=== PATIENT | female | born 1940 | race Hispanic/Latino ===

== ENCOUNTER 2016-11-14 06:54 | Emergency (ER) | payer MEDICARE, BC ==
[2016-11-14 06:54] VITALS: BMI 20.1
[2016-11-14 07:14] VITALS: BP 102/73; PULSE 85; RESP 18; TEMP 97.3; O2SAT 97
--- NOTE | 2016-11-14 08:41 | C.PDOC ---
History Of Present Illness Patient is a POOR HISTORIAN, UNCOOP 76-YEAR-OLD FEMALE, PRESENTS TO ED, STATES "I'M HERE TO DR LANGE BC I HAVE QUESTIONS FOR HIM". PS THOUGHT APPOINTMENT WAS @ 0400 SO WENT TO OFFICE "BUT I' VE BEEN IN THIS ER SINCE 0430". PS HAS QUESTIONS REGARDING CANCER, REFUSING TO ANSWER WHY SHE THINKS SHE HAS CANCER Time Seen by Provider: 11/14/16 07:31 Chief Complaint (Nursing): Medical Clearance History Per: Patient History/Exam Limitations: other (UNCOOPERATIVE) Past Medical History Reviewed: Historical Data, Nursing Documentation, Vital Signs Vital Signs: Last Vital Signs Temp 97.3 F L 11/14/16 07:05 Pulse 85 11/14/16 07:05 Resp 18 11/14/16 07:05 BP 102/73 11/14/16 07:05 Pulse Ox 97 11/14/16 09:43 - Medical History PMH: Seizures (AGE 9-14/NO FURTHER) Denies: Chronic Kidney Disease - [facility] Procedures CATARAC PHACOEMULS/ASPIR (01/27/14) INSERT LENS AT CATAR EXT (01/27/14) MONITORING OF CARDIAC OUTPUT BY OTHER TECHNIQUE (03/31/04) Family History: States: No Known Family Hx - Social History Hx Alcohol Use: No Hx Substance Use: Yes - Immunization History Hx Tetanus Toxoid Vaccination: No Hx Influenza Vaccination: No Hx Pneumococcal Vaccination: No Review Of Systems Review Of Systems: ROS cannot be obtained secondary to pt's inabilty to answer questions. (UNCOOPERATIVE) Physical Exam - Physical Exam Appears: Other (UNCOOPERATIVE. REFUSING EXAM) ED Course And Treatment O2 Sat by Pulse Oximetry: 97 Progress - Re-Evaluation Re-evaluation Note: 11/14/16 08:41 D/W DR VALENTINO WILL EVAL PT IN ER. PT W PRIOR OUTPT VILLATORO, NEG FINDINGS FOR CANCER. REQUESTING SOCIAL SERVICE EVAL FOR HOME SVC. AWARE PT REFUSING FURTHER ER INTERVENTION PRIOR TO HIS EVAL. 11/14/16 09:15 PT REFUSING TO STAY IN ER "AND I DON'T CARE WHAT HE SAYS". PMD AWARE, PT CLEARED FOR DC AND WILL IN [employer] DEVELOPMENT SPECIALIST STATES PT REFUSED TO WAIT FOR DC PAPERWORK AND LEFT. - Data Reviewed Data Reviewed: Old records - Continuity of Care Discussed patient case with:: Patient Disposition Counseled Patient/Family Regarding: Diagnosis, Need For Followup - Disposition Referrals: Estee Valentino MD [Staff Provider] - Disposition: HOME/ ROUTINE Disposition Time: 09:15 Condition: GOOD Instructions: Dementia (ED) - Clinical Impression Clinical Impression: Medical assessment, Confusion - PA / PLANT OPERATOR / Resident Statement MD/DO has reviewed & agrees with the documentation as recorded. - Scribe Statement The provider has reviewed the documentation as recorded by the Scribe (EFRA GUPTA) All medical record entries made by the Scribe were at my direction and personally dictated by me. I have reviewed the chart and agree that the record accurately reflects my personal performance of the history, physical exam, medical decision making, and the department course for this patient. I have also personally directed, reviewed, and agree with the discharge instructions and disposition.
== END 2016-11-14 09:55 | disposition home or self-care (01) ==
LOC: C.ER 06:54
DX: Z00.00 Encounter for general adult medical examination without abnormal findings (principal); R41.0 Disorientation, unspecified

== ENCOUNTER 2017-03-05 12:57 | Inpatient (IN) | payer MEDICARE, BC ==
[2017-03-05 13:03] VITALS: BMI 16.1
[2017-03-05] MEDS: Sodium Chloride 0.9% 1,000 ML IV SCH (14:00)
[2017-03-05 14:14] LABS: BASO % 0.8 % (0.0-2.0); EOS % 0.9 % (0.0-4.0); HEMATOCRIT 34.7 % (34.0-47.0); LYMPH # 0.9 K/uL (1.0-4.3); LYMPH % 18.3 % (20.0-40.0); MEAN CELL VOLUME 83.8 fL (81.0-99.0); MEAN CORPUSCULAR HEMOGLOBIN 26.7 pg (27.0-31.0); MEAN CORPUSCULAR HGB CONC 31.8 g/dL (33.0-37.0); MEAN PLATELET VOLUME 8.2 fL (7.2-11.7); MONO # 0.5 K/uL (0.0-0.8); MONO % 10.5 % (0.0-10.0); RED CELL DISTRIBUTION WIDTH 16.8 % (11.5-14.5); WHITE BLOOD COUNT 4.9 K/uL (4.8-10.8)
[2017-03-05 14:22] LABS: CHLORIDE 101 mmol/L (98-107); SODIUM 136 mmol/L (132-148)
[2017-03-05 14:23] LABS: POTASSIUM 4.9 mmol/L (3.6-5.2)
[2017-03-05 14:25] LABS: ALB/GLOB RATIO 1.3 (1.0-2.1); ALKALINE PHOSPHATASE 57 U/L (38-126); AST/SGOT 37 U/L (14-36); BILIRUBIN,TOTAL 0.9 mg/dL (0.2-1.3); BLOOD UREA NITROGEN 14 mg/dL (7-17); CARBON DIOXIDE 23 mmol/L (22-30); GFR AFRICAN-AMERICAN > 60; GLUCOSE,RANDOM 106 mg/dL (65-105); TOTAL PROTEIN 7.6 g/dL (6.3-8.3)
[2017-03-05 14:26] LABS: ALT/SGPT 33 U/L (9-52)
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
[2017-03-05 14:51] LABS: RBC URINE 1 /hpf (0-3); URINE BILIRUBIN NEGATIVE (NEGATIVE); URINE BLOOD NEGATIVE (NEGATIVE); URINE COLOR Yellow (YELLOW); URINE GLUCOSE (UA) NORMAL (Normal); URINE KETONE NEGATIVE (NEGATIVE); URINE LEUKOCYTE ESTERASE TRACE Leu/uL (Negative); URINE PROTEIN NEGATIVE (NEGATIVE); URINE UROBILINOGEN NORMAL mg/dL (0.2-1.0); WBC URINE 5 /hpf (0-5)
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
--- NOTE | 2017-03-06 07:06 | CP.PCM.CON ---
History of Present Illness - History of Present Illness History of Present Illness: CONSULT DICTATED CHANGE IN MENTAL STATUS WITH INAPPROPRIATE BEHAVIOUR PARTIAL COMPLEX SEIZURE ?? PARANEOPLASTIC/ ? METS/ LIMBIC ENCEPHALITIS NEEDS WORK UP PER ORDER Past Patient History - Past Medical History & Family History Past Medical History?: Yes - Past Social History Smoking Status: Never Smoked - CARDIAC Hx Cardiac Disorders: Yes (MVP) - PULMONARY Hx Respiratory Disorders: No - NEUROLOGICAL Hx Seizures: Yes - HEENT Hx HEENT Problems: Yes Hx Cataracts: Yes - RENAL Hx Chronic Kidney Disease: No - ENDOCRINE/METABOLIC Hx Endocrine Disorders: No - HEMATOLOGICAL/ONCOLOGICAL Hx Blood Disorders: Yes Hx Cancer: Yes (BREAST LEFT) Hx Chemotherapy: Yes (ALSO RADIATION) - INTEGUMENTARY Hx Dermatological Problems: No - MUSCULOSKELETAL/RHEUMATOLOGICAL Hx Falls: No - GASTROINTESTINAL Hx Gastrointestinal Disorders: No - GENITOURINARY/GYNECOLOGICAL Hx Genitourinary Disorders: No - PSYCHIATRIC Hx Substance Use: Yes - SURGICAL HISTORY Hx Surgeries: Yes Hx Cataract Extraction: Yes (CATARACT EXT LEFT EYE WITH IOLI) Hx Mastectomy: Yes (LUMPECTOMY LEFT BREAST) Hx Tubal Ligation: Yes - ANESTHESIA Hx Anesthesia: Yes Hx Anesthesia Reactions: No Meds Allergies/Adverse Reactions: Allergies Allergy/AdvReac Type Severity Reaction Status Date / Time latex Allergy Verified 03/05/17 13:01 CATS Allergy Uncoded 03/05/17 13:01 - Medications Medications: Current Medications Anastrozole (Arimidex 1 Mg Tab) 1 mg PO DAILY [facility] Heparin Sodium (Porcine) (Heparin) 5,000 units SC Q12H [facility] Sodium Chloride (Sodium Chloride 0.9%) 1,000 mls @ 100 mls/hr IV .Q10H [facility] Last Admin: 03/05/17 14:00 Dose: Not Given Levetiracetam (Keppra) 250 mg PO BID [facility] Last Admin: 03/05/17 22:27 Dose: 250 mg Lorazepam (Ativan) 1 mg IVP ONCE ONE Stop: 03/06/17 07:03 Pneumococcal Polyvalent Vaccine (Pneumovax 23 Vaccine) 0.5 ml IM .ONCE ONE Stop: 03/06/17 10:01 Results - Vital Signs Recent Vital Signs: Last Vital Signs Temp 98.4 F 03/05/17 23:32 Pulse 84 03/05/17 23:32 Resp 20 03/05/17 23:32 BP 111/66 03/05/17 23:32 Pulse Ox 97 03/05/17 23:32 - Labs Result Diagrams: 03/05/17 14:09 03/05/17 14:09 Labs: Laboratory Results - last 24 hr 03/05/17 03/05/17 03/05/17 14:09 14:09 14:41 WBC 4.9 RBC 4.14 Hgb 11.0 Hct 34.7 MCV 83.8 MCH 26.7 L MCHC 31.8 L RDW 16.8 H Plt Count 253 MPV 8.2 Neut % (Auto) 69.5 Lymph % (Auto) 18.3 L [place] % (Auto) 10.5 H Eos % (Auto) 0.9 Baso % (Auto) 0.8 Neut # 3.4 Lymph # 0.9 L [place] # 0.5 Eos # 0.0 Baso # 0.0 Sodium 136 Potassium 4.9 Chloride 101 Carbon Dioxide 23 Anion Gap 16 BUN 14 Creatinine 0.8 Est GFR ( Amer) > 60 Est GFR (Non-Af Amer) > 60 Random Glucose 106 H Calcium 9.0 Total Bilirubin 0.9 AST 37 H ALT 33 Alkaline Phosphatase 57 Total Protein 7.6 Albumin 4.3 Globulin 3.2 Albumin/Globulin Ratio 1.3 Urine Color Yellow Urine Clarity Clear Urine pH 6.0 Ur Specific [place] 1.012 Urine Protein Negative Urine Glucose (UA) Normal Urine Ketones Negative Urine Blood Negative Urine Nitrate Negative Urine Bilirubin Negative Urine Urobilinogen Normal Ur Leukocyte Esterase Trace Urine WBC (Auto) 5 Urine RBC (Auto) 1 Ur Squamous Epith Cells < 1
[2017-03-06] MEDS: Sodium Chloride 0.9% 1,000 ML IV SCH (09:58)
[2017-03-06] MEDS ORDERED: Influenza Vaccine 60 mcg/0.5 mL SYR (4YR UP) IM ONE (10:00)
[2017-03-06] MEDS ORDERED: Pneumococcal 23-Valent Vaccine IM ONE (10:00)
--- NOTE | 2017-03-06 11:05 | CON ---
DATE: ATTENDING PHYSICIAN: Estee Tay MD LOCATION: The patient is in room #359, bed A. REASON FOR THE CONSULTATION: Change in mental status. CHIEF COMPLAINT: The patient was brought in to [facility] with a history of change in behavior yesterday morning. From neurological point of view, I was called in to evaluate her for further management. HISTORY OF PRESENTING ILLNESS: Ms. Sofia Danielle is a 76-year-old cachectic female, in usual state of health. As per the history, she woke up yesterday morning, went to the neighbor's home and knocked the door, which was inappropriate, never happened before. She was totally confused at that point. No history of witnessed tonic-clonic activities or bowel or bladder incontinence or inappropriate clothing herself. The patient was brought into [facility] with the same picture. She was still confused. From neurological point of view, I was called in to see her. She also carried a history of seizure. She had been under the treatment of Keppra 500 mg twice a day. PAST MEDICAL HISTORY: Significant loss of weight in spite of she had a good appetite, history of breast cancer, status post mastectomy under Arimidex, history of procedure, and history of childhood epilepsy. PAST SURGICAL HISTORY: Cataract surgery. FAMILY HISTORY: Not available. SOCIAL HISTORY: Social drinking. No smoking. No history of illicit drugs. REVIEW OF SYSTEMS: A 16-point system being reviewed; from neuro, change in mental status. MEDICATIONS: Arimidex, Keppra, and IV fluids. PHYSICAL EXAMINATION: VITAL SIGNS: Blood pressure 111/66, mean arterial pressure of 81, respiratory rate 16, and temperature afebrile. NECK: Supple. No carotid bruit. HEART: Heart sounds are regular. CHEST: Fair air entry. EXTREMITIES: No edema in the legs. NEUROLOGIC EXAMINATION: The patient is awake and alert. She states she is tired of fluent speech. Initially she was giving some history about her stating that she in [place]. She was brought in to this place by her parents. Still she is studying in college. She wants to complete. Following this, asking about her some questions, she has become apprehensive, she does not want to give answer further. She does not want to be examined as well. Limited exam was done. Cranial Nerve Examination: Responds to visual threat on either sides. The pupils rare reactive to light. Extraocular movement seemed to be intact. No facial sensory deficit. No facial asymmetry. Hearing seems to be intact. Good gag. Mouth is moist. She moves all 4 extremities against gravity. Deep tendon reflexes areflexic. Plantars, she does not want me to do it. Coordination, appropriately reaching the objects. Gait is deferred at this time. LABORATORY DATA: WBC 4.9, hemoglobin 11.2, hematocrit 34.7, and platelet 253. Sodium 136, potassium 4.9, chloride 111, BUN 14, and creatinine 0.8. GFR more than 16. Random glucose 106. AST 37. Urine normal. CONCLUSION: Mr. Sofia Danielle being presenting with change in mental status and inappropriate behavior. 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 However, other possible causes of partial complex seizures from stroke process are transient ischemic attack should be worked up. The current examination is very limited. There are no long track signs noted, however, sees encephalopathic at present. RECOMMENDATIONS: 1. MRI of the brain without contrast under sedation to be done. 2. EEG. 3. Blood workup as per the order. 4. Seizure precaution and fall precaution should be maintained. The patient also given Seroquel for her delusional and inappropriate behavior. Khang Can MD
--- NOTE | 2017-03-06 20:57 | CP.PCM.PN ---
Subjective - Date & Time of Evaluation Date of Evaluation: 03/06/17 Time of Evaluation: 20:54 - Subjective Subjective: pt is confused now disoriented she is walking with some unsteady no cough no headache she claims slept well Temp Pulse Resp BP Pulse Ox 98.1 F 70 20 111/49 L 98 03/06/17 15:30 03/06/17 15:30 03/06/17 15:30 03/06/17 15:30 03/06/17 15:30 chest good air entry regular hs abd soft pt refused to get labs and MRI a/p> pt with breast ca osteoporosis fracture seizures dementia senile and with delirium prognosis guarded will admit the pt will need social group worker eval pt safty at home in question will need safe discharge plan Objective - Vital Signs/Intake and Output Vital Signs (last 24 hours): Temp Pulse Resp BP Pulse Ox 98.1 F 70 20 111/49 L 98 03/06/17 15:30 03/06/17 15:30 03/06/17 15:30 03/06/17 15:30 03/06/17 15:30 - Medications Medications: Current Medications Anastrozole (Arimidex 1 Mg Tab) 1 mg PO DAILY [facility] Last Admin: 03/06/17 10:29 Dose: 1 mg Heparin Sodium (Porcine) (Heparin) 5,000 units SC Q12H [facility] Last Admin: 03/06/17 11:44 Dose: Not Given Levetiracetam (Keppra) 250 mg PO BID [facility] Last Admin: 03/06/17 17:50 Dose: 250 mg Quetiapine Fumarate (Seroquel) 25 mg PO HS [facility] - Labs Labs: 03/05/17 14:09 03/05/17 14:09
--- NOTE | 2017-03-07 08:51 | PN ---
DATE: 03/07/2017 TIME OF EVALUATION: 6:55 a.m. NEUROLOGICAL PROBLEM: Change in mental status, rule out partial complex seizure versus paraneoplastic syndrome. PHYSICAL EXAMINATION VITAL SIGNS: Blood pressure 119/67, mean arterial pressure of 84, respiratory rate of 16, temperature afebrile. NEUROLOGICAL: The patient is more awake, alert, coherent speaking. She follows commands. She is much better than yesterday's exam. She is less confused. She knows she is in the hospital. She follows 1-2 step commands. No right and left confusion. However, her comprehension is not that normal as compare to her baseline. She does not want to do anymore testing, which is unnecessary. She does not want to be guinea pig for the testing and taking medication at present. Rest of the examination is unchanged compared with my previous examination. Her recommended testing EEG and MRI of the brain including blood workup all are on hold. At this point, I would like her to be evaluated by psychiatrist to make her competency. The patient will be followed while she is in the hospital. Khang Can MD
--- NOTE | 2017-03-07 14:17 | PCM.PSYCH ---
Initial Psychiatric Evaluation - Initial Psychiatric Evaluation Type of Admission: Voluntary Chief Complaint (in patient's own words): Psych consult called for pt's change in mental status and capacity. History of Present Illness and Precipitating Events: Pt is a poor historian and unwilling to talk and cooperate with other questions stating "that is my personal information that I don't feel like sharing". Pt is a 76 year old female with a PMH of breast cancer who presented to the ED on 03/06/2017 after she had a seizure. Pt reports that she has a history of seizures, first one at 6 years old and being seizure free for over 50 years. Patient remained disorganized and internally preoccupied throughout the interview. She was superficially cooperative but remained guarded about the details. She remained a poor historian. She reports that she was not feeling well so that is why she came to the hospital. Patient appeared paranoid and delusional. She was responding to internal stimuli and laughing inappropriately Pt appears hypermanic with loose ideas. Pt denies that she is diagnosed with a medical condition ,therefore, refuses medical testing and intervention. Pt is asking to leave. Current Medications: Active Medications Generic Name Dose Route Start Last Admin Trade Name Freq PRN Reason Stop Dose Admin Anastrozole 1 mg 03/06/17 10:00 03/07/17 09:41 Arimidex 1 Mg Tab PO 1 mg DAILY FERNANDO Administration Heparin Sodium (Porcine) 5,000 units 03/06/17 12:00 03/07/17 12:29 Heparin SC Not Given Q12H FERNANDO Levetiracetam 250 mg 03/05/17 21:45 03/07/17 09:40 Keppra PO 250 mg BID FERNANDO Administration Quetiapine Fumarate 25 mg 03/06/17 22:00 03/06/17 21:45 Seroquel PO Not Given HS FERNANDO Past Psychiatric History - Past Psychiatric History Previous Treatment History: None Pertinent Medical Hx (Current Medical&Sleep Prob, Allergies): Allergies Allergy/AdvReac Type Severity Reaction Status Date / Time latex Allergy Verified 03/05/17 13:01 CATS Allergy Uncoded 03/05/17 13:01 Keppra 500 mg PO Q12 03/05/17 Review of Systems - Review of Systems All systems: reviewed and no additional remarkable complaints except - Neurological Neurological: Behavioral Changes - Psychiatric Psychiatric: Behavioral Changes, Confusion, Irritability, Paranoia. absent: Hallucinations, Suicidal Ideation Mental Status Examination - Personal Presentation Personal Presentation: Looks stated age - Affect Affect: Constricted - Motor Activity Motor Activity: Calm - Reliability in Providing Information Reliability in Providing Information: Poor, due to alteration in thoughts, Poor , due to cognitve impairment - Speech Speech: Disorganized, Tangential - Mood Mood: Neutral - Formal Thought Process Formal Thought Process: Delusions, Paranoia, Loosening of associations, Flight of ideas - Hallucinations/Delusions Delusions: Persecution - Obsessions/Compulsions Obsessions: No Compulsions: No - Cognitive Functions Orientation: Person, Place Sensorium: Alert Attention/Concentration: Attentive Estimate of Intelligence: Below average Judgement: Imparied, as evidence by: Poor judgement, Imparied, as evidence by: Lack of insight into illness Memory: Recent intact, as evidence by: Ability to recall events of the day - Risk Risk: Diminished functioning - Strength & Assets Inventory Strength & Assets Inventory: Skills, Life experience - Limitations Limitations: Living alone DSM 5 DX - DSM 5 DSM 5 Diagnosis: Dementia of Alzheimer's type with behavioral disturbance Rule out delirium due to medical condition - Recommended/Plan of Treatment Treatment Recommendations and Plan of Treatment: Dementia of Alzheimer's type with behavioral disturbance Rule out delirium due to medical condition patient does not have any capacity to make any medical decisions since patient is very delusional and demented. - Smoking Cessation Smoking Cessation Initiated: No
--- NOTE | 2017-03-07 15:20 | CP.PCM.PN ---
Subjective - Date & Time of Evaluation Date of Evaluation: 03/07/17 Time of Evaluation: 15:17 - Subjective Subjective: PT SEEN THIS MORNING AT BEDSIDE FULLY DRESSED IN [address] CLOTHES. PT DENIES ANY PAIN OR DISCOMFORT. ONLY ADMITS TO FEELING TIRED BECAUSE "SHE WAS SHOPPING AND WALKING ALL NIGHT." PT'S THOUGHTS ARE DISORIENTED AND SHE IS PLEASANTLY CONFUSED. IN A SAFETY WATCH ROOM. SEEN BY DR. PUTNAM THIS MORNING. INTERNAL CONTROLS SPECIALIST DISCUSSED CONSULT FOR COMPETENCY WITH DR. MUÑIZ AND HE EVALUATED PT THIS MORNING. PENDING COMPETENCY BY HIM. DISCUSSED WITH SOLID WASTE COLLECTION WORKER AND PER HER THE SW HAS BEEN TRYING TO CONTACT ANY FAMILY, FRIENDS, OR OTHERS THAT MAY KNOW HER. PT CANNOT EVEN RECALL BEING TREATED FOR CANCER AND STATES "I DON'T THINK I EVER HAD THAT." CONTINUES TO REFUSE MRI OR W/O FOR R/O METS. SAFETY WATCH TO BE CONTINUED. PENDING COMPETENCY. DR. VALENTINO TO SEE PT DURING HIS ROUNDS. Objective - Vital Signs/Intake and Output Vital Signs (last 24 hours): Temp Pulse Resp BP Pulse Ox 97.9 F 89 18 105/67 100 03/07/17 08:00 03/07/17 08:00 03/07/17 08:00 03/07/17 08:00 03/07/17 08:00 Intake and Output: 03/07/17 03/07/17 06:59 18:59 Intake Total 300 480 Balance 300 480 - Medications Medications: Current Medications Anastrozole (Arimidex 1 Mg Tab) 1 mg PO DAILY [facility] Last Admin: 03/07/17 09:41 Dose: 1 mg Heparin Sodium (Porcine) (Heparin) 5,000 units SC Q12H [facility] Last Admin: 03/07/17 12:29 Dose: Not Given Levetiracetam (Keppra) 250 mg PO BID [facility]ERNANDO Last Admin: 03/07/17 09:40 Dose: 250 mg Quetiapine Fumarate (Seroquel) 25 mg PO HS [facility] Last Admin: 03/06/17 21:45 Dose: Not Given - Labs Labs: 03/05/17 14:09 03/05/17 14:09
[2017-03-07 16:50] VITALS: RESP 20
--- NOTE | 2017-03-07 22:14 | CP.PCM.PN ---
Subjective - Date & Time of Evaluation Date of Evaluation: 03/07/17 Time of Evaluation: 22:14 - Subjective Subjective: The patient is having episodes of confusion. Today patient was trying to get out of the hospital. She was more confused, she claims that the she is [place] the shopping [place]. Patient was seen by his friend, and I spoke to the patient's a friend, we'll give her the phone numbers of the family members. Her daughter Kamille De Oliveira phone number is [phone]. and her roommate num is [phone] her name is Tom curiel Vital signs otherwise stable. Temp Pulse Resp BP Pulse Ox 97.8 F 81 20 119/68 97 03/07/17 23:29 03/07/17 23:29 03/07/17 23:29 03/07/17 23:29 03/07/17 23:29 Chest good air intake, regular heart sounds, nontender abdomen, pedal edema negative Labs noted 03/05/17 14:09 03/05/17 14:09 Assessment and recommendation: 76-year-old female now having a possible advanced dementia. Patient is having episodes of seizure activities. Neurologic follow-up. Patient is currently refusing to have further investigation including MRI, and electrocardiogram. We'll closely monitor. will speak to the patient's family social services evaluation and will follow the patient Objective - Vital Signs/Intake and Output Vital Signs (last 24 hours): Temp Pulse Resp BP Pulse Ox 97.7 F 77 20 122/62 100 03/07/17 16:49 03/07/17 16:49 03/07/17 16:49 03/07/17 16:49 03/07/17 16:49 Intake and Output: 03/07/17 03/08/17 18:59 06:59 Intake Total 480 Balance 480 - Medications Medications: Current Medications Anastrozole (Arimidex 1 Mg Tab) 1 mg PO DAILY [facility] Last Admin: 03/07/17 09:41 Dose: 1 mg Heparin Sodium (Porcine) (Heparin) 5,000 units SC Q12H [facility] Last Admin: 03/07/17 12:29 Dose: Not Given Levetiracetam (Keppra) 250 mg PO BID [facility] Last Admin: 03/07/17 19:14 Dose: 250 mg Quetiapine Fumarate (Seroquel) 25 mg PO HS [facility] Last Admin: 03/06/17 21:45 Dose: Not Given - Labs Labs: 03/05/17 14:09 03/05/17 14:09
--- NOTE | 2017-03-08 10:05 | PN ---
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 PHYSICAL EXAMINATION: GENERAL: The patient again awake, alert, disoriented. Speech is fluent. VITAL SIGNS: Blood pressure 119/68, mean arterial pressure of 85, respiratory rate 18, temperature 97.8. Examination is unchanged compared with my previous examination. Clinical competency been evaluated by psychiatrist and his input is highly evaluated. The patient should be studied for her problem if family agrees. We will contact the family members (next of kin) in order to pursue further workup, further neurological problem. In meantime, continue with Keppra medication and Seroquel for now. I would initiate Aricept 5 mg, which can be titrated slowly as she tolerates. Khang Can MD
--- NOTE | 2017-03-08 14:21 | MRI ---
PROCEDURE: MRI BRAIN WITHOUT CONTRAST HISTORY: R/O mets COMPARISON: None. TECHNIQUE: Hydrocephaly is Multiplanar, multisequence MR images of the brain were obtained without intravenous contrast enhancement. FINDINGS: HEMORRHAGE: None DWI: No evidence of an acute or early subacute infarction. BRAIN PARENCHYMA: No mass effect or edema. Moderate volume loss is noted. Mild to moderate white matter changes are also noted suggestive but nonspecific for chronic microvascular ischemic disease. VENTRICLES: The ventricles are mildly to moderately dilated suggestive of central atrophy or hydrocephalus. CRANIUM: Unremarkable. ORBITS: Grossly unremarkable. PARANASAL SINUSES/MASTOIDS: Clear VASCULAR SYSTEM: Skull base flow voids intact. OTHER FINDINGS: None. IMPRESSION: Suboptimal assessment without IV contrast administration. No evidence of mass lesion mass effect or midline shift. Moderate volume loss. Dilated ventricles which may be due to central atrophy or mild hydrocephalus. Mild white matter changes suggestive but nonspecific for chronic microvascular ischemic disease.
--- NOTE | 2017-03-08 16:18 | CP.PCM.PN ---
Subjective - Date & Time of Evaluation Date of Evaluation: 03/08/17 Time of Evaluation: 16:15 - Subjective Subjective: PT SEEN TODAY AND STILL EXHIBITING BIZARRE BEHAVIOR AND FLIGHT OF IDEAS. HAS NO C/O PAIN OR DISTRESS. WANTS TO LEAVE BUT DOESN'T UNDERSTAND THAT SHE IS IN THE HOSPITAL. PT SEEN BY PSYCH YESTERDAY AND DEEMED NOT COMPETENT TO MAKE HER MEDICAL DECISIONS. MRI WAS DONE THIS AFTERNOON AFTER PT AGREED ONLY IF ACCOMPANIED BY LEAD SHAREPOINT DEVELOPER. SW HAS BEEN IN COMMUNICATION W PT'S DAUGHTER IN [place] OF TODAY (SEE HER NOTES FOR FURTHER INFORMATION). PT TO BE SEEN BY DR. VALENTINO DURING ROUNDS. FINAL DISPOSITION PLAN STILL PENDING. NO FURTHER ORDERS. Objective - Vital Signs/Intake and Output Vital Signs (last 24 hours): Temp Pulse Resp BP Pulse Ox 97.7 F 69 20 116/64 95 03/08/17 09:00 03/08/17 09:00 03/08/17 09:00 03/08/17 09:00 03/08/17 09:00 Intake and Output: 03/08/17 03/08/17 06:59 18:59 Intake Total 400 300 Balance 400 300 - Medications Medications: Current Medications Anastrozole (Arimidex 1 Mg Tab) 1 mg PO DAILY [facility] Last Admin: 03/08/17 09:37 Dose: 1 mg Donepezil HCl (Aricept) 5 mg PO HS [facility] Heparin Sodium (Porcine) (Heparin) 5,000 units SC Q12H [facility] Last Admin: 03/08/17 12:48 Dose: Not Given Levetiracetam (Keppra) 250 mg PO BID [facility] Last Admin: 03/08/17 09:35 Dose: 250 mg Quetiapine Fumarate (Seroquel) 25 mg PO HS [facility] Last Admin: 03/07/17 22:22 Dose: 25 mg - Labs Labs: 03/05/17 14:09 03/05/17 14:09
--- NOTE | 2017-03-08 21:46 | EEG ---
DATE: 03/08/2017 This is a 16-channel electroencephalogram of an awake and a confused adult. During the study, photic stimulation was performed and hyperventilation was not performed. The resting electroencephalogram consists of moderate voltage of 5 to 7 hertz high theta activity, seen at parietal and occipital leads. Anteriorly, fast activity superimposed with 2 to 3 hertz delta activity seen at frontal and central leads. Intermittent movement artifact contaminated the background rhythm. Intermittent some sleep spindles with a K-complex noted which are consistent with N2 sleep. However, during the study, neither electroencephalographic paroxysmal activities nor focal slowing noted. Khang Can MD
--- NOTE | 2017-03-09 09:21 | PN ---
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 PHYSICAL EXAMINATION: VITAL SIGNS: Blood pressure 101/68, mean arterial pressure of 79, respiratory rate 16, temperature afebrile. NEUROLOGICAL: The patient is awake, however, mental status which is not changed, disoriented. Speech is fluent. She moves all 4 extremities purposefully. WORKUP: The patient finally agrees for MRI of the brain, which was done yesterday and also the patient did have a recent encephalogram. MRI of the brain have been reviewed by me does not show any acute pathology or any metastatic process. The patient does show microvascular disease. Electroencephalogram does not show any paroxysmal activities; however, the patient shows a diffuse slow activities, which is marked theta range with N2 sleep. RECOMMENDATIONS: Continue the present medication of Keppra 500 mg twice a day. The patient has been getting 250 mg twice a day, which may be too low for her and continue Seroquel for now. Continue Aricept, the dose can be bumped up to 10 mg 4 weeks from now. The patient is neurologically stable, does not show any long tract signs except change in mental status, which is unchanged compared from the day of the admission. The patient also need psychiatric followup. Khang Can MD
--- NOTE | 2017-03-09 16:17 | CP.PCM.PN ---
Subjective - Date & Time of Evaluation Date of Evaluation: 03/09/17 Time of Evaluation: 16:14 - Subjective Subjective: PT CLEARED FOR D/C TODAY TO [facility] WHICH IS A LOCKED UNIT. OK TO D /C PER DR. VALENTINO. TO CONTINUE SAME MEDS BEING GIVEN HERE. PT SEEN AND COMFORTABLE; CONTINUES WITH BIZARRE BEHAVIOR AND FLIGHT OF IDEAS. RESP EASY AND UNLABORED, REG RHYTHM, ABD SOFT. PT DRESSED IN HER OWN CLOTHES FROM HOME AND STATES "I'M COLD" WHEN ASKED WHY SHE ISN'T WEARING GOWN. SW TO ARRANGE TRANSPORT TO [facility] TODAY. NO FURTHER ORDERS. Objective - Vital Signs/Intake and Output Vital Signs (last 24 hours): Temp Pulse Resp BP Pulse Ox 97.8 F 81 20 137/74 98 03/09/17 07:19 03/09/17 12:45 03/09/17 07:19 03/09/17 12:45 03/09/17 12:45 Intake and Output: 03/09/17 03/09/17 06:59 18:59 Intake Total 180 Balance 180 - Medications Medications: Current Medications Anastrozole (Arimidex 1 Mg Tab) 1 mg PO DAILY [facility] Last Admin: 03/09/17 09:04 Dose: 1 mg Donepezil HCl (Aricept) 5 mg PO HS [facility] Last Admin: 03/08/17 21:44 Dose: 5 mg Levetiracetam (Keppra) 500 mg PO BID [facility] Last Admin: 03/09/17 09:06 Dose: 500 mg Quetiapine Fumarate (Seroquel) 25 mg PO HS [facility] Last Admin: 03/08/17 21:47 Dose: 25 mg - Labs Labs: 03/05/17 14:09 03/05/17 14:09
[2017-03-09 17:09] VITALS: BP 103/67; PULSE 85; TEMP 98.3; O2SAT 97
--- NOTE | 2017-04-16 09:50 | DS ---
HISTORY: This 76-year-old female seen in [facility] for left-sided breast cancer, history of lumpectomy 5 years ago. The patient also had an episode of seizure activity, admitted to the hospital on 03/05/2017 with not feeling well, increasingly confusion, forgetting things, also recurrent fall, injury and bruises. The patient initially was not feeling well, she was not eating well, she also had a significant weight loss recently almost 20 pounds in this last 3 months. The patient in the hospital was seen by emergency room because of her inappropriate behavior and mental status changes. It is unsafe to discharge home, so she was being admitted to the hospital for further management. The patient was seen by neurologist, Dr. Can and evaluation was done, also seen by psychiatrist for the abnormal behavior. The patient also having episodes of dementia, and also forgetting things, and she is also having disorientation to time and place. During the stay in the hospital, medication was adjusted. The patient was started on Keppra 500 mg twice a day, Aricept 5 mg daily, Seroquel 25 mg at night, Arimidex 1 mg daily, lorazepam as needed and the patient was initially given IV fluid, social service technician evaluation was done. The patient finally agreed to go to the rehabilitation. She was transferred to [facility] for further management. The patient was otherwise clinically stable. Meanwhile, the patient's family was unable to communicate but finally able to speak. The patient will be transferred, and she will follow up as an outpatient. Estee Tay MD
== END 2017-03-09 21:45 | DRG 56 ==
LOC: C.ER 12:57 → C.9E 15:04 → C.3T 17:36 → OBSVTOIN 03-06 20:52
PROVIDERS: ADMIT Internal Medicine; ATTEND Internal Medicine
DX: G30.1 Alzheimer's disease with late onset (principal); G93.40 Encephalopathy, unspecified; R64 Cachexia; F05 Delirium due to known physiological condition; G40.209 Localization-related (focal) (partial) symptomatic epilepsy and epileptic syndromes with complex partial seizures, not intractable, without status epilepticus; F02.81 Dementia in other diseases classified elsewhere, unspecified severity, with behavioral disturbance; E86.0 Dehydration; S40.021A Contusion of right upper arm, initial encounter; M81.0 Age-related osteoporosis without current pathological fracture; X58.XXXA Exposure to other specified factors, initial encounter; Z91.81 History of falling; Z85.3 Personal history of malignant neoplasm of breast; Z87.81 Personal history of (healed) traumatic fracture; Z79.899 Other long term (current) drug therapy; Z79.811 Long term (current) use of aromatase inhibitors

== ENCOUNTER 2017-07-03 20:35 | Inpatient (IN) | payer MEDICARE, BC ==
[2017-07-03 20:36] VITALS: BMI 16.1
--- NOTE | 2017-07-03 21:15 | C.PDOC ---
History Of Present Illness 77 year old female, with PMHx of epilepsy, and dementia, is brought to ED via [facility] after being found wandering outside. As per roommate, pt left the house today without keys or belongings. As per roommate, pt had been found wandering and confused several times in the past, notes pt was found in [place] last month. Roommate claims that pt is a danger to herself and can no longer live unsupervised. Roommate notes that pt had a seizure 2 days ago, states pt stopped taking her Keppra. Otherwise, pt denies any active physical complaints at this time. Chief Complaint (Nursing): Altered Mental Status History Per: EMS, Family History/Exam Limitations: None Past Medical History Reviewed: Historical Data, Nursing Documentation, Vital Signs Vital Signs: Last Vital Signs Temp 98.5 F 07/03/17 21:02 Pulse 70 07/03/17 23:11 Resp 12 07/03/17 23:11 BP 141/60 07/03/17 23:11 Pulse Ox 98 07/03/17 23:11 - Medical History PMH: Seizures (epilepsy) Denies: Chronic Kidney Disease - [facility] Procedures CATARAC PHACOEMULS/ASPIR (01/27/14) INSERT LENS AT CATAR EXT (01/27/14) MONITORING OF CARDIAC OUTPUT BY OTHER TECHNIQUE (03/31/04) Family History: States: Unknown Family Hx - Social History Hx Alcohol Use: No Hx Substance Use: Yes - Immunization History Hx Tetanus Toxoid Vaccination: No Hx Influenza Vaccination: No Hx Pneumococcal Vaccination: No Review Of Systems Except As Marked, All Systems Reviewed And Found Negative. Constitutional: Negative for: Fever, Chills Cardiovascular: Negative for: Chest Pain, Palpitations Respiratory: Negative for: Cough, Shortness of Breath Neurological: Positive for: Seizures. Negative for: Headache Physical Exam - Physical Exam Appears: Non-toxic, No Acute Distress Skin: Normal Color, Warm, Dry Head: Atraumatic, Normacephalic Eye(s): bilateral: Normal Inspection Oral Mucosa: Moist Neck: Normal ROM, Supple Chest: Symmetrical, No Tenderness Cardiovascular: Other (S3 heart sound) Respiratory: Normal Breath Sounds, No Rales, No Rhonchi, No Wheezing Gastrointestinal/Abdominal: Soft, No Tenderness Extremity: Normal ROM, No Pedal Edema Pulses: Left Dorsalis Pedis: Normal, Right Dorsalis Pedis: Normal Neurological/Psych: No Oriented x3, Normal Speech, Other (oriented x1) Disoriented To: Place, Time Gait: Steady Other Neurological Findings: No Facial Palsy ED Course And Treatment - Laboratory Results Result Diagrams: 07/03/17 21:52 07/03/17 21:52 ECG: Interpreted By Me ECG Rhythm: Sinus Rhythm ECG Interpretation: Normal Interpretation Of ECG: NSR at 83 bpm. LAHB.No old EKG's for comparison Rate From EC O2 Sat by Pulse Oximetry: 98 Pulse Ox Interpretation: Normal - CT Scan/US head Other Rad Studies (CT/US): Read By Radiologist CT/US Interpretation: CT head-no evidence of acute stroke or bleed,no masses Medical Decision Making Medical Decision Making: Plan: Blood work Urinalysis EKG/CXR Head CT Reassess Disposition - Disposition Disposition: HOSPITALIZED Disposition Time: 01:44 Condition: FAIR - Clinical Impression Clinical Impression: Confusion, Dementia - Scribe Statement The provider has reviewed the documentation as recorded by the Christinaibmary Duran All medical record entries made by the Christinaibmary were at my direction and personally dictated by me. I have reviewed the chart and agree that the record accurately reflects my personal performance of the history, physical exam, medical decision making, and the department course for this patient. I have also personally directed, reviewed, and agree with the discharge instructions and disposition.
[2017-07-03 21:56] LABS: BASO # 0.1 K/uL (0.0-0.2); BASO % 0.7 % (0.0-2.0); EOS % 0.1 % (0.0-4.0); HEMOGLOBIN 11.5 g/dL (11.0-16.0); LYMPH # 0.8 K/uL (1.0-4.3); LYMPH % 10.5 % (20.0-40.0); MEAN CORPUSCULAR HEMOGLOBIN 28.4 pg (27.0-31.0); MEAN CORPUSCULAR HGB CONC 32.6 g/dL (33.0-37.0); MEAN PLATELET VOLUME 8.5 fL (7.2-11.7); MONO # 0.7 K/uL (0.0-0.8); MONO % 9.5 % (0.0-10.0); NEUT # 6.1 K/uL (1.8-7.0); NEUT % 79.2 % (50.0-75.0); RBC 4.06 Mil/uL (3.80-5.20); RED CELL DISTRIBUTION WIDTH 14.3 % (11.5-14.5)
[2017-07-03 21:57] LABS: MEAN CELL VOLUME 87.3 fL (81.0-99.0); WHITE BLOOD COUNT 7.7 K/uL (4.8-10.8)
[2017-07-03 22:13] LABS: ALB/GLOB RATIO 1.4 (1.0-2.1); ALBUMIN 4.3 g/dL (3.5-5.0); ALT/SGPT 49 U/L (9-52); AST/SGOT 59 U/L (14-36); BLOOD UREA NITROGEN 31 mg/dL (7-17); CALCIUM 9.5 mg/dl (8.6-10.4); GFR AFRICAN-AMERICAN 48; GFR NON-AFRICAN AMERICAN 40
--- NOTE | 2017-07-03 22:18 | CT ---
EXAM: CT Head Without Intravenous Contrast CLINICAL HISTORY: 77 years old, female; Signs and symptoms; Altered mental status/memory loss; Confusion or disorientation; Additional info: AMS TECHNIQUE: Axial computed tomography images of the head/brain without intravenous contrast. All CT scans at this facility use one or more dose reduction techniques, viz.: automated exposure control; ma/kV adjustment per patient size (including targeted exams where dose is matched to indication; i.e. head); or iterative reconstruction technique. COMPARISON: No relevant prior studies available. FINDINGS: Brain: Moderate atrophy. No intracranial hemorrhage. No mass. Few scattered foci of decreased attenuation within periventricular/subcortical white matter. No definite edema. Ventricles: No hydrocephalus. Bones/joints: No acute fracture. Soft tissues: Unremarkable. Sinuses: No acute sinusitis. Mastoid air cells: No mastoid effusion. Orbits: Unremarkable as visualized. IMPRESSION: 1. Nonspecific white matter changes. Acute infarction may be CT occult within first 24 hours. If a focal deficit persists, consider followup CT or MRI for further evaluation. 2. Incidental/non-acute findings are described above.
[2017-07-03 23:54] LABS: SQUAMOUS EPITHIAL 1 /hpf (0-5); URINE BACTERIA RARE (<OCC); URINE BILIRUBIN NEGATIVE (NEGATIVE); URINE BLOOD NEGATIVE (NEGATIVE); URINE CLARITY Hazy (Clear); URINE COLOR Amber (YELLOW); URINE GLUCOSE (UA) NORMAL (Normal); URINE HYALINE CAST >20 /lpf (0-2); URINE LEUKOCYTE ESTERASE 1+ Leu/uL (Negative); URINE NITRATE NEGATIVE (NEGATIVE); URINE PROTEIN 2+ mg/dL (NEGATIVE)
[2017-07-04 00:13] LABS: BARBITURATES, UR NEGATIVE (NEGATIVE); BENZODIAZEPINES, UR NEGATIVE (NEGATIVE); OPIATES, UR NEGATIVE (NEGATIVE); PHENCYCLIDINE, UR NEGATIVE (NEGATIVE)
[2017-07-04 01:51] VITALS: RESP 20
[2017-07-04] MEDS: Sodium Chloride 0.9% 1,000 ML IV SCH ×3 (10:52→21:35)
--- NOTE | 2017-07-04 13:35 | RAD ---
HISTORY: Altered mental status COMPARISON: 07/18/2016 TECHNIQUE: Chest PA and lateral FINDINGS: LUNGS: Hyperinflation, manifestations of COPD. No active pulmonary disease. PLEURA: No significant pleural effusion identified. No pneumothorax apparent. CARDIOVASCULAR: No radiographic findings to suggest acute or significant cardiovascular disease. OSSEOUS STRUCTURES: No significant abnormalities. VISUALIZED UPPER ABDOMEN: Normal. OTHER FINDINGS: None. IMPRESSION: No active disease. No significant interval change compared to the prior examination(s).
--- NOTE | 2017-07-04 16:26 | CARD ---
APPROVED REPORT EKG Measurement Heart [id number] <Conclusion> Normal sinus rhythm Left anterior fascicular block Abnormal ECG
--- NOTE | 2017-07-04 18:03 | CP.PCM.HP ---
Past Patient History - Infectious Disease Hx of Infectious Diseases: None - Past Medical History & Family History Past Medical History?: Yes - Past Social History Smoking Status: Never Smoked - CARDIAC Hx Cardiac Disorders: Yes (MVP) - PULMONARY Hx Respiratory Disorders: No - NEUROLOGICAL Hx Neurological Disorder: Yes Hx Seizures: Yes (epilepsy) - HEENT Hx HEENT Problems: Yes Hx Cataracts: Yes - RENAL Hx Chronic Kidney Disease: No - ENDOCRINE/METABOLIC Hx Endocrine Disorders: No - HEMATOLOGICAL/ONCOLOGICAL Hx Blood Disorders: Yes Hx Cancer: Yes (BREAST LEFT) Hx Chemotherapy: Yes (ALSO RADIATION) - INTEGUMENTARY Hx Dermatological Problems: No - MUSCULOSKELETAL/RHEUMATOLOGICAL Hx Musculoskeletal Disorders: Yes Hx Falls: Yes - GASTROINTESTINAL Hx Gastrointestinal Disorders: No - GENITOURINARY/GYNECOLOGICAL Hx Genitourinary Disorders: No - PSYCHIATRIC Hx Psychophysiologic Disorder: Yes Hx Substance Use: Yes - SURGICAL HISTORY Hx Surgeries: Yes Hx Cataract Extraction: Yes (CATARACT EXT LEFT EYE WITH IOLI) Hx Mastectomy: Yes (LUMPECTOMY LEFT BREAST) Hx Tubal Ligation: Yes - ANESTHESIA Hx Anesthesia: Yes Hx Anesthesia Reactions: No Meds Allergies/Adverse Reactions: Allergies Allergy/AdvReac Type Severity Reaction Status Date / Time latex Allergy Verified 03/05/17 13:01 CATS Allergy Uncoded 03/05/17 13:01 Physical Exam - Constitutional Appears: Well - Head Exam Head Exam: ATRAUMATIC, NORMAL INSPECTION, NORMOCEPHALIC - Eye Exam Eye Exam: EOMI, Normal appearance, PERRL Pupil Exam: NORMAL ACCOMODATION, PERRL - ENT Exam ENT Exam: Mucous Membranes Moist, Normal Exam - Neck Exam Neck exam: Positive for: Normal Inspection - Respiratory Exam Respiratory Exam: Decreased Breath Sounds - Cardiovascular Exam Cardiovascular Exam: REGULAR RHYTHM, +S1, +S2 - GI/Abdominal Exam GI & Abdominal Exam: Diminished Bowel Sounds, Soft - Rectal Exam Rectal Exam: Deferred Results - Vital Signs Recent Vital Signs: Last Vital Signs Temp 97.4 F L 07/04/17 15:30 Pulse 69 07/04/17 15:30 Resp 20 07/04/17 15:30 BP 97/60 L 07/04/17 15:30 Pulse Ox 98 07/04/17 15:30 - Labs Result Diagrams: 07/03/17 21:52 07/03/17 21:52 Labs: Laboratory Results - last 24 hr 07/03/17 07/03/17 07/03/17 21:52 21:52 21:52 WBC 7.7 D RBC 4.06 Hgb 11.5 Hct 35.4 MCV 87.3 D MCH 28.4 MCHC 32.6 L RDW 14.3 Plt Count 301 MPV 8.5 Neut % (Auto) 79.2 H Lymph % (Auto) 10.5 L Humphreys % (Auto) 9.5 Eos % (Auto) 0.1 Baso % (Auto) 0.7 Neut # (Auto) 6.1 Lymph # (Auto) 0.8 L Humphreys # (Auto) 0.7 Eos # (Auto) 0.0 Baso # (Auto) 0.1 Sodium 142 Potassium 3.5 L Chloride 103 Carbon Dioxide 25 Anion Gap 17 BUN 31 H Creatinine 1.3 H Est GFR ( Amer) 48 Est GFR (Non-Af Amer) 40 Random Glucose 109 H Calcium 9.5 Total Bilirubin 0.7 AST 59 H D ALT 49 Alkaline Phosphatase 70 Ammonia < 9 L Total Protein 7.4 Albumin 4.3 Globulin 3.1 Albumin/Globulin Ratio 1.4 Urine Color Urine Clarity Urine pH Ur Specific [place] Urine Protein Urine Glucose (UA) Urine Ketones Urine Blood Urine Nitrate Urine Bilirubin Urine Urobilinogen Ur Leukocyte Esterase Urine WBC (Auto) Urine RBC (Auto) Ur Squamous Epith Cells Urine Bacteria Hyaline Casts Urine Opiates Screen Urine Methadone Screen Ur Barbiturates Screen Ur Phencyclidine Scrn Ur Amphetamines Screen U Benzodiazepines Scrn U Oth Cocaine Metabols U Cannabinoids Screen Alcohol, Quantitative < 10 07/03/17 07/03/17 23:44 23:44 WBC RBC Hgb Hct MCV MCH MCHC RDW Plt Count MPV Neut % (Auto) Lymph % (Auto) Humphreys % (Auto) Eos % (Auto) Baso % (Auto) Neut # (Auto) Lymph # (Auto) Humphreys # (Auto) Eos # (Auto) Baso # (Auto) Sodium Potassium Chloride Carbon Dioxide Anion Gap BUN Creatinine Est GFR ( Amer) Est GFR (Non-Af Amer) Random Glucose Calcium Total Bilirubin AST ALT Alkaline Phosphatase Ammonia Total Protein Albumin Globulin Albumin/Globulin Ratio Urine Color [place] Urine Clarity Hazy Urine pH 5.0 Ur Specific [place] 1.027 Urine Protein 2+ H Urine Glucose (UA) Normal Urine Ketones Trace Urine Blood Negative Urine Nitrate Negative Urine Bilirubin Negative Urine Urobilinogen 2.0 H Ur Leukocyte Esterase 1+ H Urine WBC (Auto) 11 H Urine RBC (Auto) 5 H Ur Squamous Epith Cells 1 Urine Bacteria Rare Hyaline Casts >20 H Urine Opiates Screen Negative Urine Methadone Screen Negative Ur Barbiturates Screen Negative Ur Phencyclidine Scrn Negative Ur Amphetamines Screen Negative U Benzodiazepines Scrn Negative U Oth Cocaine Metabols Negative U Cannabinoids Screen Negative Alcohol, Quantitative
[2017-07-04] MEDS ORDERED: Potassium Chloride 20 mEq ER Tab PO STA (19:33)
[2017-07-05] MEDS: Sodium Chloride 0.9% 1,000 ML IV SCH (10:17)
--- NOTE | 2017-07-05 23:23 | CON ---
DATE: 07/05/2017. PSYCHIATRIC CONSULTATION CHIEF COMPLAINT AND REASON FOR CONSULTATION: The patient is referred by Dr. Iggy Duran for evaluation, the patient had dementia as well as history of seizures, on psych meds. HISTORY OF PRESENT ILLNESS: This is the case of 77-year-old female with history of seizure, she claims she has since childhood and also dementia. The patient was brought in with change in mental status. The patient was found wandering outside. According to her roommate who is her significant other, the patient left the house with no keys as noted in the chart. She has a history of wandering in the past and being confused and was found in [place] last night. The patient had a seizure 2 days ago stating that she did not take her medication. The patient seems to have dementia. She is doing much better today, but when asked has pronounced cognitive deficits. The patient does not even know the names of her medications. She said she used to take phenobarb and Dilantin in the past, but now she is on Keppra. The patient states that she takes her medication, but does not remember the name or when to take it. I told her that she needs somebody to help monitor her meds as the patient is prone to have recurrent seizures. The patient had a CAT scan of the head done that showed moderate atrophy, no acute intracranial abnormality. PAST PSYCHIATRIC HISTORY: History of dementia. PAST MEDICAL HISTORY: History of seizures for many many years on Keppra. DRUG AND ALCOHOL HISTORY: Denies any. ALLERGIES: ALLERGIC TO LATEX AND CATS. CURRENT MEDICATIONS: Include Aricept 5 mg daily, Arimidex as well as well as the patient may have history of breast cancer, Heparin, Keppra 500 mg b.i.d., Seroquel 25 mg at bedtime. PHYSICAL EXAMINATION: VITAL SIGNS: Temperature is 98, pulse is 65, blood pressure 121/57, respirations 20 and oxygen saturation is 100%. LABORATORY DATA: Review of her labs WBC 7.7, potassium 3.5, sodium 132. UA is positive for protein, presence of urine rbc 5, urine wbc 11, urine protein +2. Ammonia less than 9. Urine drug screen is negative. Alcohol is less than 10. REVIEW OF SYSTEMS: GENERAL: The patient is alert and verbal, but forgetful, seen in the four-bedded room, she says she wants to go home. She says she was in rehab before. She said she can take care of herself, I spoke with her social studies department chair reported the patient is an open case with [facility] and they have been trying to get help at home. The patient needs somebody to help monitor her meds. The patient has history of chronic seizures and needs to take her medication regularly. SKIN: No diaphoresis. HEENT: No headache or dizziness. No evidence of gingival hyperplasia, the patient also reported history of Dilantin intake in the past. NECK: Supple. RESPIRATORY: No dyspnea. CARDIOVASCULAR: No chest pain. GASTROINTESTINAL: No nausea. No vomiting. EXTREMITIES: The patient is moving extremities. MUSCULOSKELETAL: Feels weak. NEURO: Alert with limited periods of confusion. The patient is oriented to person, to place she knows the hospital, but could not remember the name. Time, she is not oriented to time. MENTAL STATUS EXAMINATION: Elderly female, looks stated age, height 5 feet 4 inches, weighs 129 pounds. Oriented only to place and person. Speech is spontaneous. Affect is reactive. Mood is dysphoric. Thought process, confused often. Thought content, no overt paranoia. No suicidal or homicidal ideation. The patient wants to go home. The patient knows she has seizures, but cannot remember her medications and when to take them. The patient is taking Keppra 500 mg b.i.d., but could not remember that she is taking Aricept, Arimidex, which is the medicine for breast cancer as well as taking Seroquel 25 mg daily. Attention and memory seems to be limited. Insight judgement limited. Impulse control is fair at this time. IMPRESSION: History of delirium, metabolic encephalopathy, probably consider postictal confusion as well as dementia with mood changes and history of seizure as well as history of dehydration, also to consider probably history of breast cancer as the patient is taking Arimidex. PLAN AND RECOMMENDATION: The patient was seen. Meds reviewed. We will keep the patient in the four-bedded room for observation . The patient is taking Aricept 5 mg at bedtime as well as Seroquel 25 mg at bedtime. Continue Keppra 500 mg b.i.d. The patient at this time wants to go home. If she will be discharged to her significant partner, the patient may need somebody to monitor her meds. The patient has history of dementia and could not remember even the names of the medicines and when to take them. The patient will have recurrent seizure if she is not taking her seizure meds as prescribed. Ferdinand Lainez MD [facility]
[2017-07-06 08:38] LABS: BASO # 0.1 K/uL (0.0-0.2); BASO % 2.4 % (0.0-2.0); EOS # 0.1 K/uL (0.0-0.7); EOS % 3.8 % (0.0-4.0); LYMPH # 1.2 K/uL (1.0-4.3); LYMPH % 31.1 % (20.0-40.0); MEAN CELL VOLUME 86.3 fL (81.0-99.0); MEAN CORPUSCULAR HEMOGLOBIN 29.1 pg (27.0-31.0); MEAN CORPUSCULAR HGB CONC 33.7 g/dL (33.0-37.0); MEAN PLATELET VOLUME 8.3 fL (7.2-11.7); MONO # 0.5 K/uL (0.0-0.8); MONO % 13.4 % (0.0-10.0); NEUT # 1.9 K/uL (1.8-7.0); NEUT % 49.3 % (50.0-75.0); NRBC % 0.2 % (0.0-2.0); RBC 3.44 Mil/uL (3.80-5.20); RED CELL DISTRIBUTION WIDTH 13.9 % (11.5-14.5); WHITE BLOOD COUNT 3.8 K/uL (4.8-10.8)
[2017-07-06 08:42] LABS: BLOOD UREA NITROGEN 15 mg/dL (7-17); CALCIUM 8.5 mg/dl (8.6-10.4); GFR AFRICAN-AMERICAN > 60; GFR NON-AFRICAN AMERICAN > 60
[2017-07-06] MEDS: Sodium Chloride 0.9% 1,000 ML IV SCH ×3 (10:18→23:15)
[2017-07-06] MEDS ORDERED: Oxycodone/Acetaminophen 5/325 mg Tab PO PRN (14:30)
--- NOTE | 2017-07-06 18:30 | CP.PCM.PN ---
Subjective - Date & Time of Evaluation Date of Evaluation: 07/06/17 Time of Evaluation: 07:20 - Subjective Subjective: clinically same Objective - Vital Signs/Intake and Output Vital Signs (last 24 hours): Temp Pulse Resp BP Pulse Ox 98.1 F 72 20 127/62 99 07/06/17 16:00 07/06/17 16:00 07/06/17 16:00 07/06/17 16:00 07/06/17 16:00 Intake and Output: 07/06/17 07/06/17 06:59 18:59 Intake Total 300 1490 Output Total 500 Balance -200 1490 - Medications Medications: Current Medications Anastrozole (Arimidex 1 Mg Tab) 1 mg PO DAILY [facility] Last Admin: 07/06/17 10:17 Dose: 1 mg Donepezil HCl (Aricept) 5 mg PO [facility] Last Admin: 07/05/17 21:06 Dose: 5 mg Heparin Sodium (Porcine) (Heparin) 5,000 units SC Q12 [facility] Last Admin: 07/06/17 10:18 Dose: 5,000 units Sodium Chloride (Sodium Chloride 0.9%) 1,000 mls @ 80 mls/hr IV .[id number] [facility] Last Admin: 07/06/17 17:05 Dose: 80 mls/hr Levetiracetam (Keppra) 500 mg PO BID [facility] Last Admin: 07/06/17 17:06 Dose: 500 mg Oxycodone/Acetaminophen (Percocet 5/325 Mg Tab) 1 tab PO Q6H PRN PRN Reason: Pain, severe (8-10) Stop: 07/09/17 14:31 Quetiapine Fumarate (Seroquel) 25 mg PO [facility] Last Admin: 07/05/17 21:06 Dose: 25 mg - Labs Labs: 07/06/17 08:22 07/06/17 08:22 - Constitutional Appears: Well - Head Exam Head Exam: ATRAUMATIC, NORMAL INSPECTION, NORMOCEPHALIC - Eye Exam Eye Exam: EOMI, Normal appearance, PERRL Pupil Exam: NORMAL ACCOMODATION, PERRL - ENT Exam ENT Exam: Mucous Membranes Moist, Normal Exam - Neck Exam Neck Exam: Full ROM, Normal Inspection. absent: Lymphadenopathy - Respiratory Exam Respiratory Exam: Decreased Breath Sounds - Cardiovascular Exam Cardiovascular Exam: REGULAR RHYTHM, +S1, +S2 - GI/Abdominal Exam GI & Abdominal Exam: Soft, Diminished Bowel Sounds - Rectal Exam Rectal Exam: Deferred
--- NOTE | 2017-07-06 19:46 | PN ---
DATE: SUBJECTIVE: The patient is seen. The patient has periods of confusion. She is very forgetful, but today she is more amenable, she has agreed for now to go for subacute rehab to [facility]. The patient with complaints of severe back pain and asking for oxycodone which is acetaminophen combination, which she had in the past. Behavior redmond, she has been compliant with medications, she still remembers the medications that she is taking. VITAL SIGNS: Temperature 98.2, pulse 81, blood pressure 127/60, respirations 20, and O2 saturation 96% on room air. REVIEW OF SYSTEMS: GENERAL: The patient is alert, verbal but still forgetful, seen in her room, not in acute respiratory distress. The patient states that she want to go home. SKIN: No diaphoresis. HEENT: No headache. No dizziness. NECK: Supple. RESPIRATORY: No dyspnea. CARDIOVASCULAR: No chest pain. GASTROINTESTINAL: The patient is eating. MUSCULOSKELETAL: Still complaining of back pain. EXTREMITIES: The patient is ambulating. NEURO: No recurrence of seizures. Alert and oriented x2. GENITOURINARY: No dysuria. MENTAL STATUS EXAMINATION: Elderly female, looks stated age and seen in the four-bedded room, the patient needs monitoring, she is not agitated. She is more cooperative, oriented x2. Speech is spontaneous. Affect is reactive. Mood is calmer. Thought process, still with periods of confusion. Thought content, no overt paranoia. No suicidal or homicidal ideation. The patient still cannot remember the names of her medications. Attention and memory seems to be limited. Insight and judgment limited. Impulse control is fair at this time. IMPRESSION: History of dementia with mood changes, as well as history of seizure with possible postictal confusion, resolving; history of dehydration; history of delirium; metabolic encephalopathy. PLAN AND RECOMMENDATIONS: The patient is seen, medications reviewed. Continue treatment plan as outlined. Psych [place], may continue the Aricept 5 mg at bedtime, Seroquel 25 mg at bedtime, may also have the Percocet one tablet q.6 hours p.r.n. for pain. Once the patient is more medically stable, the patient may go to [facility] for subacute rehab. Behavior redmond, the patient is redirectable at this time. Ferdinand Lainez MD [facility] # [id number] JAMAL
[2017-07-07] MEDS: Sodium Chloride 0.9% 1,000 ML IV SCH ×2 (06:28→19:39)
--- NOTE | 2017-07-07 17:50 | CP.PCM.PN ---
Subjective - Date & Time of Evaluation Date of Evaluation: 07/07/17 Time of Evaluation: 07:20 - Subjective Subjective: clinically same Objective - Vital Signs/Intake and Output Vital Signs (last 24 hours): Temp Pulse Resp BP Pulse Ox 98.2 F 63 20 119/66 99 07/07/17 15:15 07/07/17 15:15 07/07/17 15:15 07/07/17 15:15 07/07/17 15:15 Intake and Output: 07/07/17 07/07/17 06:59 18:59 Intake Total 1820 1040 Balance 1820 1040 - Medications Medications: Current Medications Anastrozole (Arimidex 1 Mg Tab) 1 mg PO DAILY [facility] Last Admin: 07/07/17 10:40 Dose: 1 mg Donepezil HCl (Aricept) 5 mg PO [facility] Last Admin: 07/06/17 22:50 Dose: 5 mg Levetiracetam (Keppra) 500 mg PO BID [facility] Last Admin: 07/07/17 17:44 Dose: 500 mg Oxycodone/Acetaminophen (Percocet 5/325 Mg Tab) 1 tab PO Q6H PRN PRN Reason: Pain, severe (8-10) Stop: 07/09/17 14:31 Quetiapine Fumarate (Seroquel) 25 mg PO [facility] Last Admin: 07/06/17 22:51 Dose: 25 mg - Labs Labs: 07/06/17 08:22 07/06/17 08:22 - Constitutional Appears: Well - Head Exam Head Exam: ATRAUMATIC, NORMAL INSPECTION, NORMOCEPHALIC - Eye Exam Eye Exam: EOMI, Normal appearance, PERRL Pupil Exam: NORMAL ACCOMODATION, PERRL - ENT Exam ENT Exam: Mucous Membranes Moist, Normal Exam - Neck Exam Neck Exam: Full ROM, Normal Inspection. absent: Lymphadenopathy - Respiratory Exam Respiratory Exam: Decreased Breath Sounds - Cardiovascular Exam Cardiovascular Exam: REGULAR RHYTHM, +S1, +S2 - GI/Abdominal Exam GI & Abdominal Exam: Soft, Diminished Bowel Sounds - Rectal Exam Rectal Exam: Deferred
--- NOTE | 2017-07-07 20:36 | PN ---
DATE: SUBJECTIVE: The patient seen in the four-bedded room, not confused, does report she is planning to go home. The patient has still no recall of her medication, and she could not remember why she had a seizure. She claims she has been compliant with meds. The patient also states that she lives in [place] but her address actually is in [place]. The patient is manageable at this time, recurrent seizures. PHYSICAL EXAMINATION VITAL SIGNS: Temperature 98.2, pulse 63, blood pressure 119/66, respirations 20, 99% room air. REVIEW OF SYSTEMS: GENERAL: The patient is alert, verbal, less confused. Oriented only to place and person. SKIN: No diaphoresis. HEENT: No headache. No dizziness. NECK: Supple. RESPIRATORY: No dyspnea. CARDIOVASCULAR: No chest pain. GASTROINTESTINAL: No nausea. No vomiting. EXTREMITIES: The patient is ambulatory. MUSCULOSKELETAL: Feels weak. NEUROLOGIC: Alert with periods of confusion. GENITOURINARY: No dysuria. MENTAL STATUS EXAMINATION: Elderly female, looks stated age, oriented x2. Mood is calm. Affect is reactive. Speech is spontaneous. Thought process is confused. Thought content, the patient is unsure why she is in the hospital, but aware she is in the hospital. No behavioral problems. No psychosis or suicidal ideation. Attention and memory seem to be limited. Insight and judgement are limited. Impulse control is fair at this time. IMPRESSION: History of delirium, metabolic encephalopathy, history of seizure, senile onset dementia with mood changes, history of dehydration. PLAN AND RECOMMENDATION: The patient was seen. Meds reviewed. We will keep the patient in the four-bedded room for monitoring as well as continue present psych meds. The patient wants to go home but may benefit from subacute rehab if she will agree. Ferdinand Lainez MD [email or web address]
[2017-07-08] MEDS: Sodium Chloride 0.9% 1,000 ML IV SCH (10:36)
--- NOTE | 2017-07-08 13:28 | CP.PCM.PN ---
Subjective - Date & Time of Evaluation Date of Evaluation: 07/08/17 Time of Evaluation: 07:20 - Subjective Subjective: clinically same Objective - Vital Signs/Intake and Output Vital Signs (last 24 hours): Temp Pulse Resp BP Pulse Ox 97.7 F 87 20 115/72 100 07/08/17 08:00 07/08/17 08:00 07/08/17 08:00 07/08/17 08:00 07/08/17 08:00 Intake and Output: 07/08/17 07/08/17 06:59 18:59 Intake Total 1930 Balance 1930 - Medications Medications: Current Medications Anastrozole (Arimidex 1 Mg Tab) 1 mg PO DAILY [facility] Last Admin: 07/08/17 10:28 Dose: 1 mg Donepezil HCl (Aricept) 5 mg PO [facility] Last Admin: 07/07/17 21:28 Dose: 5 mg Levetiracetam (Keppra) 500 mg PO BID [facility] Last Admin: 07/08/17 10:28 Dose: 500 mg Oxycodone/Acetaminophen (Percocet 5/325 Mg Tab) 1 tab PO Q6H PRN PRN Reason: Pain, severe (8-10) Stop: 07/09/17 14:31 Quetiapine Fumarate (Seroquel) 25 mg PO [facility] Last Admin: 07/07/17 21:28 Dose: 25 mg - Labs Labs: 07/06/17 08:22 07/06/17 08:22 - Constitutional Appears: Well - Head Exam Head Exam: ATRAUMATIC, NORMAL INSPECTION, NORMOCEPHALIC - Eye Exam Eye Exam: EOMI, Normal appearance, PERRL Pupil Exam: NORMAL ACCOMODATION, PERRL - ENT Exam ENT Exam: Mucous Membranes Moist, Normal Exam - Neck Exam Neck Exam: Full ROM, Normal Inspection. absent: Lymphadenopathy - Respiratory Exam Respiratory Exam: Decreased Breath Sounds - Cardiovascular Exam Cardiovascular Exam: REGULAR RHYTHM, +S1, +S2 - GI/Abdominal Exam GI & Abdominal Exam: Soft, Diminished Bowel Sounds - Rectal Exam Rectal Exam: Deferred
--- NOTE | 2017-07-08 16:56 | PN ---
DATE: 07/08/2017 SUBJECTIVE: The patient is seen with some family members at bedside. She is eating very well. She is forgetful and cannot recall her medications. Concern of the family is that the patient is not taking her meds regularly. The mother of her long time partnerr told this doctor that they are willing to provide home care services as her partner works and the patient also needs some supervision. The patient also benefit from subacute rehab for reconditioning. She could not remember the names of her medications. PHYSICAL EXAMINATION: VITAL SIGNS: Temperature 97.7, pulse 87, blood pressure 115/72, respirations 20, oxygen saturations is 100% on room air. GENERAL: She is alert at times, oriented at times, she is still forgetful, seen with her family and her partner. The patient and her partner have been together for 18 years. Her partner works. The patient is about 77 and her partner is in the mid 60s. SKIN: No diaphoresis. HEENT: No headache. No dizziness. NECK: Supple. RESPIRATORY: No dyspnea. CARDIOVASCULAR: No chest pain. GASTROINTESTINAL: The patient is eating very well. EXTREMITIES: Gait is steady and has been walking around the unit.. MUSCULOSKELETAL: Feels weak. NEUROLOGIC: Alert with periods of confusion. GENITOURINARY: No dysuria. MENTAL STATUS EXAMINATION: Elderly female who looks stated age, oriented x2, forgetful but is anxious at times. Affect is reactive. Speech is spontaneous. Thought process, forgetful. Thought content, no overt psychosis. No suicidal or homicidal ideation. The patient wants to go home. Attention and memory seems to be limited. Insight and judgment seems to be limited. Impulse control is fair at this time. IMPRESSION: History of delirium, metabolic encephalopathy, history of seizures, dementia with mood changes, and dehydration. PLAN AND RECOMMENDATIONS: The patient is seen and meds reviewed. Continue present psych meds as ordered. Continue seizure meds. The patient may benefit from subacute rehab. The mother of her partner would like to provide home care services at home,provided they can afford, as well as the patient has been followed by [facility]. Ferdinand Lainez MD MTDD
[2017-07-09 09:16] VITALS: O2SAT 100
[2017-07-09 15:37] VITALS: BP 122/70; PULSE 70; TEMP 98
--- NOTE | 2017-07-09 16:46 | CP.PCM.PN ---
Subjective - Date & Time of Evaluation Date of Evaluation: 07/09/17 Time of Evaluation: 07:20 - Subjective Subjective: clinically same Objective - Vital Signs/Intake and Output Vital Signs (last 24 hours): Temp Pulse Resp BP Pulse Ox 98.0 F 70 20 122/70 100 07/09/17 15:34 07/09/17 15:34 07/09/17 15:34 07/09/17 15:34 07/09/17 15:34 Intake and Output: 07/09/17 07/09/17 06:59 18:59 Intake Total 300 Balance 300 - Medications Medications: Current Medications Anastrozole (Arimidex 1 Mg Tab) 1 mg PO [facility]ILY [facility] Last Admin: 07/09/17 09:59 Dose: 1 mg Donepezil HCl (Aricept) 5 mg PO [facility] Last Admin: 07/08/17 21:21 Dose: 5 mg Levetiracetam (Keppra) 500 mg PO BID [facility] Last Admin: 07/09/17 09:59 Dose: 500 mg Quetiapine Fumarate (Seroquel) 25 mg PO [facility] Last Admin: 07/08/17 21:21 Dose: 25 mg - Labs Labs: 07/06/17 08:22 07/06/17 08:22 - Constitutional Appears: Well - Head Exam Head Exam: ATRAUMATIC, NORMAL INSPECTION, NORMOCEPHALIC - Eye Exam Eye Exam: EOMI, Normal appearance, PERRL Pupil Exam: NORMAL ACCOMODATION, PERRL - ENT Exam ENT Exam: Mucous Membranes Moist, Normal Exam - Neck Exam Neck Exam: Full ROM, Normal Inspection. absent: Lymphadenopathy - Respiratory Exam Respiratory Exam: Decreased Breath Sounds - Cardiovascular Exam Cardiovascular Exam: REGULAR RHYTHM, +S1, +S2 - GI/Abdominal Exam GI & Abdominal Exam: Soft, Diminished Bowel Sounds - Rectal Exam Rectal Exam: NORMAL INSPECTION
--- NOTE | 2017-07-09 18:02 | CP.PCM.PN ---
Subjective - Date & Time of Evaluation Date of Evaluation: 07/09/17 Time of Evaluation: 11:00 - Subjective Subjective: Alert, awake, no agitation, no distress. Objective - Vital Signs/Intake and Output Vital Signs (last 24 hours): Temp Pulse Resp BP Pulse Ox 98.0 F 70 20 122/70 100 07/09/17 15:34 07/09/17 15:34 07/09/17 15:34 07/09/17 15:34 07/09/17 15:34 Intake and Output: 07/09/17 07/09/17 06:59 18:59 Intake Total 300 Balance 300 - Medications Medications: Current Medications Anastrozole (Arimidex 1 Mg Tab) 1 mg PO DAILY [facility] Last Admin: 07/09/17 09:59 Dose: 1 mg Donepezil HCl (Aricept) 5 mg PO [facility] Last Admin: 07/08/17 21:21 Dose: 5 mg Levetiracetam (Keppra) 500 mg PO BID [facility] Last Admin: 07/09/17 09:59 Dose: 500 mg Quetiapine Fumarate (Seroquel) 25 mg PO [facility] Last Admin: 07/08/17 21:21 Dose: 25 mg - Labs Labs: 07/06/17 08:22 07/06/17 08:22 Assessment and Plan - Assessment and Plan (Free Text) Assessment: 77 Year old female admitted with altered mental status, seen and examined. Awake , alert, mental status within normal limits, follows commands. Wants to go home , cleared by DR Jenkins to be continued with present meds. APS will follow at home for medication check, also home care has been arranged. Advised to follow up with her PMD in 1 week.
--- NOTE | 2017-07-09 18:09 | PN ---
DATE: 07/09/2017 SUBJECTIVE: The patient is seen. The patient presently confused with eating her lunch without any problems. Has good appetite. The patient wants to go home. Still very forgetful. She does not remember the name of her meds, but insists that she is taking her meds at home. The patient will need somebody at home and she is to contact her partner to help the patient monitor her meds. The patient could not remember the name of her psych meds. The patient is on Aricept and Seroquel. She has been sleeping well, has good appetite. No behavioral problems. No recurrent seizures evident. PHYSICAL EXAMINATION VITAL SIGNS: Temperature 93.3, pulse rate 69, blood pressure 105/63, respirations 20, and O2 saturation is 100%. GENERAL: The patient is alert and oriented x2 to place and person at this time, but not agitated. seen in the four-bedded room for monitoring. The patient states she wants to go home. SKIN: No diaphoresis. HEENT: No headache or dizziness. NECK: Supple. RESPIRATORY: No dyspnea. CARDIOVASCULAR: No chest pain. GASTROINTESTINAL: Has good appetite. No nausea or vomiting. EXTREMITIES: Gait is improving. She has been walking around the unit. NEUROLOGIC: Alert with periods of forgetfulness. GENITOURINARY: No dysuria. MUSCULOSKELETAL: Weakness improving. MENTAL STATUS EXAMINATION: An elderly female who looks stated age and oriented x2. Mood is calmer. Affect is reactive. Speech is spontaneous. Thought process, confused off and on. Thought content, the patient wants to go home. She does not want to go to subacute rehab, but still very forgetful. No psychosis. No suicidal or homicidal ideation. Attention and memory seems to be limited. Insight and judgment are limited. Impulse control is fair at this time. IMPRESSION: History of delirium, metabolic encephalopathy secondary to seizure, history of dementia with mood changes as well as history of dehydration. PLAN AND RECOMMENDATIONS: The patient was seen and meds reviewed. Continue present psych meds. However, if the patient was discharged to home, we have to ask her partner to monitor the meds. The patient cannot remember taking her medications. She cannot even remember the name. The patient has a long history of seizures, somebody has to supervise the patient for her medication. She is refusing to go to subacute rehab. The patient has been ambulating much better. She needs medication monitoring at home. Ferdinand Lainez MD
== END 2017-07-09 21:13 | disposition home health service (06) | DRG 884 ==
LOC: C.ER 20:35 → C.9E 21:37 → C.3T 23:21 → UNDODISIN 07-09 18:41
PROVIDERS: ADMIT Internal Medicine Nephrology; ATTEND Internal Medicine Nephrology
DX: F03.91 Unspecified dementia, unspecified severity, with behavioral disturbance (principal); G93.40 Encephalopathy, unspecified; F05 Delirium due to known physiological condition; E86.0 Dehydration; G40.909 Epilepsy, unspecified, not intractable, without status epilepticus; Z79.811 Long term (current) use of aromatase inhibitors; Z85.3 Personal history of malignant neoplasm of breast; Z91.83 Wandering in diseases classified elsewhere

== ENCOUNTER 2017-07-21 19:44 | Inpatient (IN) | payer MEDICARE, BC ==
[2017-07-21 19:45] VITALS: BMI 16.1
--- NOTE | 2017-07-21 20:03 | C.PDOC ---
History Of Present Illness 77 year old female, whose past medical history includes seizure disorder, who presents to the ED complaining of chest pain, and possible episode of seizure. Patient reports she is unsure and does not remember if she had an episode. Additionally, she was given 324 mg of Aspirin while coming to the ED. Time Seen by Provider: 07/21/17 20:03 Chief Complaint (Nursing): Chest Pain History Per: Patient History/Exam Limitations: no limitations Onset/Duration Of Symptoms: Hrs Current Symptoms Are (Timing): Gone Context: Other Severity: None Modifying Factors: None Exacerbating Factors: None Alleviating Factors: None Recent travel outside of the [place]: No Additional History Per: Patient Past Medical History Reviewed: Historical Data, Nursing Documentation, Vital Signs Vital Signs: Last Vital Signs Temp 98 F 07/21/17 19:55 Pulse 108 H 07/21/17 19:55 Resp BP 153/71 H 07/21/17 19:55 Pulse Ox 98 07/21/17 20:53 - Medical History PMH: Seizures (epilepsy) Denies: Chronic Kidney Disease - [facility] Procedures CATARAC PHACOEMULS/ASPIR (01/27/14) INSERT LENS AT CATAR EXT (01/27/14) MONITORING OF CARDIAC OUTPUT BY OTHER TECHNIQUE (03/31/04) Family History: States: No Known Family Hx - Social History Hx Alcohol Use: No Hx Substance Use: Yes - Immunization History Hx Tetanus Toxoid Vaccination: No Hx Influenza Vaccination: No Hx Pneumococcal Vaccination: No Review Of Systems Constitutional: Negative for: Fever Eyes: Negative for: Vision Change Cardiovascular: Positive for: Chest Pain. Negative for: Palpitations Respiratory: Negative for: Shortness of Breath Gastrointestinal: Negative for: Vomiting Genitourinary: Negative for: Dysuria Musculoskeletal: Negative for: Neck Pain Skin: Negative for: Rash Neurological: Positive for: Seizures. Negative for: Weakness, Change in Speech Psych: Negative for: Anxiety Physical Exam - Physical Exam Appears: Non-toxic, No Acute Distress Skin: Warm, Dry Head: Normacephalic Eye(s): bilateral: Normal Inspection, PERRL, EOMI Neck: Trachea Midline, Supple Chest: Symmetrical Cardiovascular: Rhythm Regular Respiratory: No Rales, No Rhonchi, No Wheezing Gastrointestinal/Abdominal: Bowel Sounds (active), Soft, No Tenderness, No Distention, No Guarding, No Rebound Back: Normal Inspection Extremity: Normal ROM Extremity: Bilateral: Atraumatic, Normal Color And Temperature, Normal ROM Pulses: Left Dorsalis Pedis: Normal, Right Dorsalis Pedis: Normal Neurological/Psych: Oriented x3, Normal Speech, Normal Cognition, Normal Motor, Normal Sensation, Normal Reflexes Gait: Steady ED Course And Treatment - Laboratory Results Result Diagrams: 07/21/17 20:12 07/21/17 20:12 ECG: Interpreted By Me, Viewed By Me ECG Rhythm: Sinus Rhythm (92), Nonspecific Changes (LAHB) O2 Sat by Pulse Oximetry: 98 (room air) Pulse Ox Interpretation: Normal - Radiology CXR: Interpreted by Me, Viewed By Me Disposition Discussed With : Ely Duran Comment: accepted the pt onhis service and took over the care at 9:28PM Doctor Will See Patient In The: Hospital Counseled Patient/Family Regarding: Studies Performed, Diagnosis - Disposition Disposition: HOSPITALIZED Disposition Time: 21:09 Condition: FAIR Forms: [facility] (Croatian) - POA Present On Arrival: None - Clinical Impression Clinical Impression: Chest pain - Scribe Statement The provider has reviewed the documentation as recorded by the Scribe Scribe Attestation: Esperanza Reina MD Scribe Attestation: All medical record entries made by the Scribe were at my direction and personally dictated by me. I have reviewed the chart and agree that the record accurately reflects my personal performance of the history, physical exam, medical decision making, and the department course for this patient. I have also personally directed, reviewed, and agree with the discharge instructions and disposition. Decision To Admit - Pt Status Changed To: Hospital Disposition Of: Inpatient - Admit Certification Admit to Inpatient:: After my assessment, the patient will require hospitalization for at least two midnights. This is because of the severity of symptoms shown, intensity of services needed, and/or the medical risk in this patient being treated as an outpatient. - InPatient: Physician Admission Certification: I certify that this patient requires 2 or more midnights of care for the following reason:: After my assessment, the patient will require hospitalization for at least two midnights. This is because of the severity of symptoms shown, intensity of services needed, and/or the medical risk in this patient being treated as an outpatient. - . Bed Request Type: Telemetry Admitting Physician: Ely Duran Patient Diagnosis: Chest pain
[2017-07-21 20:15] LABS: BASO # 0.1 K/uL (0.0-0.2); EOS # 0.1 K/uL (0.0-0.7); EOS % 0.9 % (0.0-4.0); HEMOGLOBIN 11.6 g/dL (11.0-16.0); LYMPH # 1.4 K/uL (1.0-4.3); LYMPH % 20.5 % (20.0-40.0); MEAN CELL VOLUME 86.5 fL (81.0-99.0); MEAN CORPUSCULAR HEMOGLOBIN 28.3 pg (27.0-31.0); MEAN CORPUSCULAR HGB CONC 32.7 g/dL (33.0-37.0); MEAN PLATELET VOLUME 7.8 fL (7.2-11.7); MONO # 0.7 K/uL (0.0-0.8); NEUT # 4.6 K/uL (1.8-7.0); NEUT % 67.6 % (50.0-75.0); NRBC % 0.1 % (0.0-2.0); RBC 4.08 Mil/uL (3.80-5.20); RED CELL DISTRIBUTION WIDTH 14.3 % (11.5-14.5)
[2017-07-21 20:19] LABS: WHITE BLOOD COUNT 6.9 K/uL (4.8-10.8)
[2017-07-21 20:25] LABS: INR 1.2; PROTHROMBIN TIME 13.3 SECONDS (9.7-12.2)
[2017-07-21 20:32] LABS: ALB/GLOB RATIO 1.3 (1.0-2.1); ALBUMIN 3.9 g/dL (3.5-5.0); ALT/SGPT 33 U/L (9-52); AST/SGOT 26 U/L (14-36); BLOOD UREA NITROGEN 18 mg/dL (7-17); CALCIUM 9.1 mg/dl (8.6-10.4); GFR AFRICAN-AMERICAN > 60; GFR NON-AFRICAN AMERICAN 53
[2017-07-21 20:39] LABS: B-TYPE NATRIURETIC PEPTIDE 357 pg/mL (0-900)
[2017-07-21 20:41] LABS: SQUAMOUS EPITHIAL 1 /hpf (0-5); URINE BACTERIA RARE (<OCC); URINE BILIRUBIN NEGATIVE (NEGATIVE); URINE BLOOD NEGATIVE (NEGATIVE); URINE CLARITY Clear (Clear); URINE COLOR Yellow (YELLOW); URINE GLUCOSE (UA) NORMAL (Normal); URINE LEUKOCYTE ESTERASE NEG Leu/uL (Negative); URINE PROTEIN 1+ mg/dL (NEGATIVE); URINE UROBILINOGEN NORMAL mg/dL (0.2-1.0)
[2017-07-22 04:51] LABS: CK-MB 2.98 ng/mL (0.0-3.38); TROPONIN I 0.866 ng/mL (0.00-0.120)
--- NOTE | 2017-07-22 08:47 | RAD ---
PROCEDURE: CHEST RADIOGRAPH, 1 VIEW HISTORY: chest pain COMPARISON: Chest radiograph dated 07/03/2017. FINDINGS: LUNGS: Hyperinflated lungs with flattened diaphragms. Bibasilar scarring. No focal consolidation. PLEURA: No pneumothorax or pleural fluid seen. CARDIOVASCULAR: Atherosclerotic aortic calcifications. Cardiomediastinal silhouette stably enlarged. OSSEOUS STRUCTURES: Unchanged. VISUALIZED UPPER ABDOMEN: Normal. OTHER FINDINGS: None. IMPRESSION: No active disease.
[2017-07-22] MEDS ORDERED: Enoxaparin 40 mg Syringe SC SCH (10:00)
[2017-07-22] MEDS: Pantoprazole 40 mg EC Tab PO SCH (10:01)
[2017-07-22 13:05] LABS: CK-MB 4.63 ng/mL (0.0-3.38)
[2017-07-22 14:57] LABS: TROPONIN I 1.1 ng/mL (0.00-0.120)
--- NOTE | 2017-07-22 16:09 | CP.PCM.HP ---
Present on Admission - Present on Admission Any Indicators Present on Admission: No Past Patient History - Infectious Disease Hx of Infectious Diseases: None - Past Medical History & Family History Past Medical History?: Yes - Past Social History Smoking Status: Never Smoked - CARDIAC Hx Cardiac Disorders: Yes (MVP) - PULMONARY Hx Respiratory Disorders: No - NEUROLOGICAL Hx Seizures: Yes (epilepsy) - HEENT Hx HEENT Problems: Yes Hx Cataracts: Yes - RENAL Hx Chronic Kidney Disease: No - ENDOCRINE/METABOLIC Hx Endocrine Disorders: No - HEMATOLOGICAL/ONCOLOGICAL Hx Blood Disorders: Yes Hx Cancer: Yes (BREAST LEFT) Hx Chemotherapy: Yes (ALSO RADIATION) - INTEGUMENTARY Hx Dermatological Problems: No - MUSCULOSKELETAL/RHEUMATOLOGICAL Hx Musculoskeletal Disorders: Yes Hx Falls: Yes - GASTROINTESTINAL Hx Gastrointestinal Disorders: No - GENITOURINARY/GYNECOLOGICAL Hx Genitourinary Disorders: No - PSYCHIATRIC Hx Substance Use: No - SURGICAL HISTORY Hx Surgeries: Yes Hx Cataract Extraction: Yes (CATARACT EXT LEFT EYE WITH IOLI) Hx Mastectomy: Yes (LUMPECTOMY LEFT BREAST) Hx Tubal Ligation: Yes - ANESTHESIA Hx Anesthesia: Yes Hx Anesthesia Reactions: No Hx Malignant Hyperthermia: No Has any member of the family had a problem w/ anesthesia?: No Meds Allergies/Adverse Reactions: Allergies Allergy/AdvReac Type Severity Reaction Status Date / Time latex Allergy Verified 03/05/17 13:01 CATS Allergy Uncoded 03/05/17 13:01 Physical Exam - Constitutional Appears: Well - Head Exam Head Exam: ATRAUMATIC, NORMAL INSPECTION, NORMOCEPHALIC - Eye Exam Eye Exam: EOMI, Normal appearance, PERRL Pupil Exam: NORMAL ACCOMODATION, PERRL - ENT Exam ENT Exam: Mucous Membranes Moist, Normal Exam - Neck Exam Neck exam: Positive for: Normal Inspection - Respiratory Exam Respiratory Exam: Decreased Breath Sounds - Cardiovascular Exam Cardiovascular Exam: REGULAR RHYTHM, +S1, +S2 - GI/Abdominal Exam GI & Abdominal Exam: Diminished Bowel Sounds, Soft - Rectal Exam Rectal Exam: Deferred Results - Vital Signs Recent Vital Signs: Last Vital Signs Temp 97.7 F 07/22/17 13:00 Pulse 98 H 07/22/17 13:00 Resp 20 07/22/17 13:00 BP 138/70 07/22/17 13:00 Pulse Ox 99 07/22/17 13:00 - Labs Result Diagrams: 07/21/17 20:12 07/21/17 20:12 Labs: Laboratory Results - last 24 hr 07/21/17 07/21/17 07/21/17 20:12 20:12 20:12 WBC 6.9 D RBC 4.08 Hgb 11.6 Hct 35.3 MCV 86.5 MCH 28.3 MCHC 32.7 L RDW 14.3 Plt Count 316 MPV 7.8 Neut % (Auto) 67.6 Lymph % (Auto) 20.5 Brown % (Auto) 10.0 Eos % (Auto) 0.9 Baso % (Auto) 1.0 Neut # (Auto) 4.6 Lymph # (Auto) 1.4 Brown # (Auto) 0.7 Eos # (Auto) 0.1 Baso # (Auto) 0.1 PT 13.3 H INR 1.2 APTT 30 Sodium 142 Potassium 4.1 Chloride 104 Carbon Dioxide 27 Anion Gap 15 BUN 18 H Creatinine 1.0 Est GFR ( Amer) > 60 Est GFR (Non-Af Amer) 53 POC Glucose (mg/dL) Random Glucose 100 Calcium 9.1 Total Bilirubin 0.5 AST 26 ALT 33 Alkaline Phosphatase 108 Total Creatine Kinase CK-MB (Mass) Troponin I < 0.0120 NT-Pro-B Natriuret Pep 357 Total Protein 6.9 Albumin 3.9 Globulin 3.0 Albumin/Globulin Ratio 1.3 Urine Color Urine Clarity Urine pH Ur Specific [place] Urine Protein Urine Glucose (UA) Urine Ketones Urine Blood Urine Nitrate Urine Bilirubin Urine Urobilinogen Ur Leukocyte Esterase Urine WBC (Auto) Urine RBC (Auto) Ur Squamous Epith Cells Urine Bacteria 07/21/17 07/22/17 07/22/17 20:22 04:05 07:20 WBC RBC Hgb Hct MCV MCH MCHC RDW Plt Count MPV Neut % (Auto) Lymph % (Auto) Brown % (Auto) Eos % (Auto) Baso % (Auto) Neut # (Auto) Lymph # (Auto) Brown # (Auto) Eos # (Auto) Baso # (Auto) PT INR APTT Sodium Potassium Chloride Carbon Dioxide Anion Gap BUN Creatinine Est GFR ( Amer) Est GFR (Non-Af Amer) POC Glucose (mg/dL) 87 Random Glucose Calcium Total Bilirubin AST ALT Alkaline Phosphatase Total Creatine Kinase 64 CK-MB (Mass) 2.98 Troponin I 0.8660 H* NT-Pro-B Natriuret Pep Total Protein Albumin Globulin Albumin/Globulin Ratio Urine Color Yellow Urine Clarity Clear Urine pH 5.0 Ur Specific [place] 1.023 Urine Protein 1+ H Urine Glucose (UA) Normal Urine Ketones Negative Urine Blood Negative Urine Nitrate Negative Urine Bilirubin Negative Urine Urobilinogen Normal Ur Leukocyte Esterase Neg Urine WBC (Auto) 1 Urine RBC (Auto) 2 Ur Squamous Epith Cells 1 Urine Bacteria Rare 07/22/17 12:37 WBC RBC Hgb Hct MCV MCH MCHC RDW Plt Count MPV Neut % (Auto) Lymph % (Auto) Brown % (Auto) Eos % (Auto) Baso % (Auto) Neut # (Auto) Lymph # (Auto) Brown # (Auto) Eos # (Auto) Baso # (Auto) PT INR APTT Sodium Potassium Chloride Carbon Dioxide Anion Gap BUN Creatinine Est GFR ( Amer) Est GFR (Non-Af Amer) POC Glucose (mg/dL) Random Glucose Calcium Total Bilirubin AST ALT Alkaline Phosphatase Total Creatine Kinase 96 CK-MB (Mass) 4.63 H Troponin I 1.1000 H* NT-Pro-B Natriuret Pep Total Protein Albumin Globulin Albumin/Globulin Ratio Urine Color Urine Clarity Urine pH Ur Specific [place] Urine Protein Urine Glucose (UA) Urine Ketones Urine Blood Urine Nitrate Urine Bilirubin Urine Urobilinogen Ur Leukocyte Esterase Urine WBC (Auto) Urine RBC (Auto) Ur Squamous Epith Cells Urine Bacteria Assessment & Plan - Assessment and Plan (Free Text) Plan: Continue with antiemetics Continue with aspirin and Crestor Continue with the GI and DVT prophylaxis Patient's troponin level is little high Patient is following up by the emergency care attendant Cardiology consult with the Dr. Jesús mayo for positive troponin Patient is on therapeutic Lovenox 60 mg subcu twice daily
[2017-07-22] MEDS: Enoxaparin 60 mg Syringe SC SCH (18:36)
--- NOTE | 2017-07-22 20:41 | CP.PCM.CON ---
History of Present Illness - History of Present Illness History of Present Illness: Patient admitted for chest pain. Now Troponin is positive Therapeutic Lovenox, ASA and statins for now Check ECHO in am Likely needs cath prior to dicsharge History Of Present Illness 77 year old female, whose past medical history includes seizure disorder, who presents to the ED complaining of chest pain, and possible episode of seizure. Patient reports she is unsure and does not remember if she had an episode. Additionally, she was given 324 mg of Aspirin while coming to the ED. Chief Complaint (Nursing): Chest Pain History Per: Patient History/Exam Limitations: no limitations Onset/Duration Of Symptoms: Hrs Current Symptoms Are (Timing): Gone Context: Other Severity: None Modifying Factors: None Exacerbating Factors: None Alleviating Factors: None Recent travel outside of the [place]: No Additional History Per: Patient - Medical History PMH: Seizures (epilepsy) Denies: Chronic Kidney Disease - [facility] Procedures CATARAC PHACOEMULS/ASPIR (01/27/14) INSERT LENS AT CATAR EXT (01/27/14) MONITORING OF CARDIAC OUTPUT BY OTHER TECHNIQUE (03/31/04) Family History: States: No Known Family Hx - Social History Hx Alcohol Use: No Hx Substance Use: Yes - Immunization History Hx Tetanus Toxoid Vaccination: No Hx Influenza Vaccination: No Hx Pneumococcal Vaccination: No Review Of Systems Constitutional: Negative for: Fever Eyes: Negative for: Vision Change Cardiovascular: Positive for: Chest Pain. Negative for: Palpitations Respiratory: Negative for: Shortness of Breath Gastrointestinal: Negative for: Vomiting Genitourinary: Negative for: Dysuria Musculoskeletal: Negative for: Neck Pain Skin: Negative for: Rash Neurological: Positive for: Seizures. Negative for: Weakness, Change in Speech Psych: Negative for: Anxiety Physical Exam - Physical Exam Appears: Non-toxic, No Acute Distress Skin: Warm, Dry Head: Normacephalic Eye(s): bilateral: Normal Inspection, PERRL, EOMI Neck: Trachea Midline, Supple Chest: Symmetrical Cardiovascular: Rhythm Regular Respiratory: No Rales, No Rhonchi, No Wheezing Gastrointestinal/Abdominal: Bowel Sounds (active), Soft, No Tenderness, No Distention, No Guarding, No Rebound Back: Normal Inspection Extremity: Normal ROM Extremity: Bilateral: Atraumatic, Normal Color And Temperature, Normal ROM Pulses: Left Dorsalis Pedis: Normal, Right Dorsalis Pedis: Normal Neurological/Psych: Oriented x3, Normal Speech, Normal Cognition, Normal Motor, Normal Sensation, Normal Reflexes Gait: Steady Past Patient History - Infectious Disease Hx of Infectious Diseases: None - Past Medical History & Family History Past Medical History?: Yes - Past Social History Smoking Status: Never Smoked - CARDIAC Hx Cardiac Disorders: Yes (MVP) - PULMONARY Hx Respiratory Disorders: No - NEUROLOGICAL Hx Seizures: Yes (epilepsy) - HEENT Hx HEENT Problems: Yes Hx Cataracts: Yes - RENAL Hx Chronic Kidney Disease: No - ENDOCRINE/METABOLIC Hx Endocrine Disorders: No - HEMATOLOGICAL/ONCOLOGICAL Hx Blood Disorders: Yes Hx Cancer: Yes (BREAST LEFT) Hx Chemotherapy: Yes (ALSO RADIATION) - INTEGUMENTARY Hx Dermatological Problems: No - MUSCULOSKELETAL/RHEUMATOLOGICAL Hx Musculoskeletal Disorders: Yes Hx Falls: Yes - GASTROINTESTINAL Hx Gastrointestinal Disorders: No - GENITOURINARY/GYNECOLOGICAL Hx Genitourinary Disorders: No - PSYCHIATRIC Hx Substance Use: No - SURGICAL HISTORY Hx Surgeries: Yes Hx Cataract Extraction: Yes (CATARACT EXT LEFT EYE WITH IOLI) Hx Mastectomy: Yes (LUMPECTOMY LEFT BREAST) Hx Tubal Ligation: Yes - ANESTHESIA Hx Anesthesia: Yes Hx Anesthesia Reactions: No Hx Malignant Hyperthermia: No Has any member of the family had a problem w/ anesthesia?: No Meds Home Medications: Home Medication List Medication Instructions Recorded Confirmed Type Aspirin [Ecotrin] 81 mg PO DAILY #30 tabec 07/27/17 Rx Rosuvastatin Calcium [Crestor] 20 mg PO HS #30 tab 07/27/17 Rx Allergies/Adverse Reactions: Allergies Allergy/AdvReac Type Severity Reaction Status Date / Time latex Allergy Verified 03/05/17 13:01 CATS Allergy Uncoded 03/05/17 13:01 - Medications Medications: Current Medications Acetaminophen (Tylenol 325mg Tab) 650 mg PO Q6 PRN PRN Reason: pain Last Admin: 07/22/17 10:16 Dose: 650 mg Anastrozole (Arimidex 1 Mg Tab) 1 mg PO DAILY [facility] Last Admin: 07/22/17 10:00 Dose: 1 mg Aspirin (Ecotrin) 81 mg PO DAILY [facility] Last Admin: 07/22/17 10:00 Dose: 81 mg Donepezil HCl (Aricept) 5 mg PO HS [facility] Last Admin: 07/21/17 23:07 Dose: 5 mg Enoxaparin Sodium (Lovenox) 60 mg SC BID [facility] Last Admin: 07/22/17 18:36 Dose: 60 mg Levetiracetam (Keppra) 500 mg PO BID [facility] Last Admin: 07/22/17 17:05 Dose: 500 mg Pantoprazole Sodium (Protonix Ec Tab) 40 mg PO DAILY [facility] Last Admin: 07/22/17 10:01 Dose: 40 mg Quetiapine Fumarate (Seroquel) 25 mg PO HS [facility] Last Admin: 07/21/17 23:07 Dose: 25 mg Results - Vital Signs Recent Vital Signs: Last Vital Signs Temp 98.2 F 07/22/17 16:00 Pulse 98 H 07/22/17 18:00 Resp 17 07/22/17 16:00 BP 98/62 L 07/22/17 16:00 Pulse Ox 98 07/22/17 16:00 - Labs Result Diagrams: 07/24/17 06:34 07/24/17 06:34 Labs: Laboratory Results - last 24 hr 07/21/17 07/22/17 07/22/17 20:22 04:05 07:20 POC Glucose (mg/dL) 87 Total Creatine Kinase 64 CK-MB (Mass) 2.98 Troponin I 0.8660 H* Urine Color Yellow Urine Clarity Clear Urine pH 5.0 Ur Specific [place] 1.023 Urine Protein 1+ H Urine Glucose (UA) Normal Urine Ketones Negative Urine Blood Negative Urine Nitrate Negative Urine Bilirubin Negative Urine Urobilinogen Normal Ur Leukocyte Esterase Neg Urine WBC (Auto) 1 Urine RBC (Auto) 2 Ur Squamous Epith Cells 1 Urine Bacteria Rare 07/22/17 12:37 POC Glucose (mg/dL) Total Creatine Kinase 96 CK-MB (Mass) 4.63 H Troponin I 1.1000 H* Urine Color Urine Clarity Urine pH Ur Specific [place] Urine Protein Urine Glucose (UA) Urine Ketones Urine Blood Urine Nitrate Urine Bilirubin Urine Urobilinogen Ur Leukocyte Esterase Urine WBC (Auto) Urine RBC (Auto) Ur Squamous Epith Cells Urine Bacteria Assessment & Plan - Assessment and Plan (Free Text) Assessment: Patient admitted for chest pain. Now Troponin is positive Therapeutic Lovenox, ASA and statins for now Check ECHO in am Likely needs cath prior to dicsharge
[2017-07-23] MEDS: Enoxaparin 60 mg Syringe SC SCH ×2 (09:08→21:12)
[2017-07-23] MEDS: Pantoprazole 40 mg EC Tab PO SCH (09:08)
--- NOTE | 2017-07-23 19:46 | CP.PCM.PN ---
Subjective - Date & Time of Evaluation Date of Evaluation: 07/23/17 Time of Evaluation: 16:50 - Subjective Subjective: clinically same Objective - Vital Signs/Intake and Output Vital Signs (last 24 hours): Temp Pulse Resp BP Pulse Ox 98.8 F 91 H 19 106/54 L 98 07/23/17 08:00 07/23/17 18:00 07/23/17 18:00 07/23/17 15:20 07/23/17 15:20 Intake and Output: 07/23/17 07/24/17 18:59 06:59 Intake Total 800 Output Total 300 Balance 500 - Medications Medications: Current Medications Acetaminophen (Tylenol 325mg Tab) 650 mg PO Q6 PRN PRN Reason: pain Last Admin: 07/22/17 10:16 Dose: 650 mg Anastrozole (Arimidex 1 Mg Tab) 1 mg PO DAILY [facility] Last Admin: 07/23/17 09:08 Dose: 1 mg Aspirin (Ecotrin) 81 mg PO DAILY [facility] Last Admin: 07/23/17 09:08 Dose: 81 mg Donepezil HCl (Aricept) 5 mg PO [facility] Last Admin: 07/22/17 21:11 Dose: 5 mg Enoxaparin Sodium (Lovenox) 60 mg SC Q12 [facility] Levetiracetam (Keppra) 500 mg PO BID [facility] Last Admin: 07/23/17 17:52 Dose: Not Given Pantoprazole Sodium (Protonix Ec Tab) 40 mg PO DAILY [facility] Last Admin: 07/23/17 09:08 Dose: 40 mg Quetiapine Fumarate (Seroquel) 25 mg PO [facility] Last Admin: 07/22/17 21:11 Dose: 25 mg Rosuvastatin Calcium (Crestor) 20 mg PO [facility] Last Admin: 07/22/17 21:11 Dose: 20 mg - Labs Labs: 07/21/17 20:12 07/21/17 20:12 PT 13.3 SECONDS (9.7-12.2) H 07/21/17 20:12 INR 1.2 07/21/17 20:12 APTT 30 SECONDS (21-34) 07/21/17 20:12 - Constitutional Appears: Well - Head Exam Head Exam: ATRAUMATIC, NORMAL INSPECTION, NORMOCEPHALIC - Eye Exam Eye Exam: EOMI, Normal appearance, PERRL Pupil Exam: NORMAL ACCOMODATION, PERRL - ENT Exam ENT Exam: Mucous Membranes Moist, Normal Exam - Neck Exam Neck Exam: Full ROM, Normal Inspection. absent: Lymphadenopathy - Respiratory Exam Respiratory Exam: Decreased Breath Sounds - Cardiovascular Exam Cardiovascular Exam: REGULAR RHYTHM, +S1, +S2 - GI/Abdominal Exam GI & Abdominal Exam: Soft, Diminished Bowel Sounds - Rectal Exam Rectal Exam: Deferred
--- NOTE | 2017-07-23 21:29 | CARD ---
APPROVED REPORT EXAM: Two-dimensional and M-mode echocardiogram with Doppler and color Doppler. Other Information Quality : GoodRhythm : INDICATION Chest Pain +TROPONIN 2D DIMENSIONS IVSd1.2 (0.7-1.1cm)LVDd5.0 (3.9-5.9cm) PWd1.2 (0.7-1.1cm)LVDs2.9 (2.5-4.0cm) FS (%) 41.2 %LVEF (%)71.8 (>50%) M-Mode DIMENSIONS RVDd2.20 (2.1-3.2cm)Left Atrium (MM)3.36 (2.5-4.0cm) IVSd1.16 (0.7-1.1cm)Aortic Root2.74 (2.2-3.7cm) LVDd5.33 (4.0-5.6cm)Aortic Cusp Exc.1.69 (1.5-2.0cm) PWd1.10 (0.7-1.1cm)FS (%) 50 % LVDs2.65 (2.0-3.8cm) Mitral Valve MV E Dqrsmwtq04.4cm/sMV A Tzuacbnl86.1cm/sE/A ratio0.6 TDI E/Lateral E'0.0E/Medial E'0.0 Tricuspid Valve TR Peak Aeyylgpy368pf/sTR Peak Gr.45lrOwKTDE60xgVm LEFT VENTRICLE The left ventricle is normal size. There is mild concentric left ventricular hypertrophy. Left ventricle systolic function is normal. The Ejection Fraction is >70%. There is normal LV segmental wall motion. Tissue Doppler imaging reveals abnormal left ventricular diastolic dysfunction. RIGHT VENTRICLE The right ventricle is normal size. There is normal right ventricular wall thickness. The right ventricular systolic function is normal. ATRIA The left atrium size is normal. The right atrium size is normal. The interatrial septum is intact with no evidence for an atrial septal defect. AORTIC VALVE The aortic valve is normal in structure. No aortic regurgitation is present. There is no aortic valvular stenosis. MITRAL VALVE A mild mitral valve prolapse is present. There is no mitral valve stenosis. Mitral regurgitation is mild. TRICUSPID VALVE The tricuspid valve is normal in structure. There is mild tricuspid regurgitation. Right ventricular systolic pressure is estimated at 30-40 mmHg. There is mild pulmonary hypertension. PULMONIC VALVE The pulmonic valve is not well visualized. There is no pulmonic valvular regurgitation. GREAT VESSELS The aortic root is normal in size. PERICARDIAL EFFUSION There is no significant pericardial effusion. <Conclusion> Left ventricle systolic function is normal. The Ejection Fraction is >70%. Hypertensive heart disease. Diastolic dysfunction. No aortic regurgitation is present. A mild mitral valve prolapse is present. Mitral regurgitation is mild. There is mild tricuspid regurgitation. There is mild pulmonary hypertension. There is no pulmonic valvular regurgitation.
--- NOTE | 2017-07-23 22:41 | CP.PCM.PN ---
Subjective - Date & Time of Evaluation Date of Evaluation: 07/23/17 Time of Evaluation: 16:35 - Subjective Subjective: Patient seen and evaluated Denies chest pain and dyspnea Non ST elevation [place] Advised cardiac cath Patient refusing at present Mental status questionable Recommend psych consult for competence Review Of Systems Constitutional: Negative for: Fever Eyes: Negative for: Vision Change Cardiovascular: Positive for: Chest Pain. Negative for: Palpitations Respiratory: Negative for: Shortness of Breath Gastrointestinal: Negative for: Vomiting Genitourinary: Negative for: Dysuria Musculoskeletal: Negative for: Neck Pain Skin: Negative for: Rash Neurological: Positive for: Seizures. Negative for: Weakness, Change in Speech Psych: Negative for: Anxiety Physical Exam - Physical Exam Appears: Non-toxic, No Acute Distress Skin: Warm, Dry Head: Normacephalic Eye(s): bilateral: Normal Inspection, PERRL, EOMI Neck: Trachea Midline, Supple Chest: Symmetrical Cardiovascular: Rhythm Regular Respiratory: No Rales, No Rhonchi, No Wheezing Gastrointestinal/Abdominal: Bowel Sounds (active), Soft, No Tenderness, No Distention, No Guarding, No Rebound Back: Normal Inspection Extremity: Normal ROM Extremity: Bilateral: Atraumatic, Normal Color And Temperature, Normal ROM Pulses: Left Dorsalis Pedis: Normal, Right Dorsalis Pedis: Normal Neurological/Psych: Oriented x3, Normal Speech, Normal Cognition, Normal Motor, Normal Sensation, Normal Reflexes Gait: Steady Objective - Vital Signs/Intake and Output Vital Signs (last 24 hours): Temp Pulse Resp BP Pulse Ox 97.9 F 98 H 19 106/54 L 98 07/23/17 20:00 07/23/17 20:00 07/23/17 18:00 07/23/17 15:20 07/23/17 15:20 Intake and Output: 07/23/17 07/24/17 18:59 06:59 Intake Total 800 Output Total 300 Balance 500 - Medications Medications: Current Medications Acetaminophen (Tylenol 325mg Tab) 650 mg PO Q6 PRN PRN Reason: pain Last Admin: 07/22/17 10:16 Dose: 650 mg Anastrozole (Arimidex 1 Mg Tab) 1 mg PO DAILY [facility] Last Admin: 07/23/17 09:08 Dose: 1 mg Aspirin (Ecotrin) 81 mg PO DAILY [facility] Last Admin: 07/23/17 09:08 Dose: 81 mg Donepezil HCl (Aricept) 5 mg PO HS [facility] Last Admin: 07/23/17 21:12 Dose: 5 mg Enoxaparin Sodium (Lovenox) 60 mg SC Q12 [facility] Last Admin: 07/23/17 21:12 Dose: 60 mg Levetiracetam (Keppra) 500 mg PO BID [facility] Last Admin: 07/23/17 17:52 Dose: Not Given Pantoprazole Sodium (Protonix Ec Tab) 40 mg PO DAILY [facility] Last Admin: 07/23/17 09:08 Dose: 40 mg Quetiapine Fumarate (Seroquel) 25 mg PO HS [facility] Last Admin: 07/23/17 21:12 Dose: 25 mg Rosuvastatin Calcium (Crestor) 20 mg PO [facility] Last Admin: 07/23/17 21:12 Dose: 20 mg - Labs Labs: 07/21/17 20:12 07/21/17 20:12 PT 13.3 SECONDS (9.7-12.2) H 07/21/17 20:12 INR 1.2 07/21/17 20:12 APTT 30 SECONDS (21-34) 07/21/17 20:12 Assessment and Plan - Assessment and Plan (Free Text) Assessment: Non ST elevation [place] Advised cardiac cath Patient refusing at present Mental status questionable Recommend psych consult for competence
[2017-07-24 06:43] LABS: BASO # 0.1 K/uL (0.0-0.2); BASO % 1.3 % (0.0-2.0); EOS # 0.1 K/uL (0.0-0.7); EOS % 1.6 % (0.0-4.0); HEMOGLOBIN 11.8 g/dL (11.0-16.0); LYMPH # 1.3 K/uL (1.0-4.3); LYMPH % 30.8 % (20.0-40.0); MEAN CELL VOLUME 86.8 fL (81.0-99.0); MEAN CORPUSCULAR HEMOGLOBIN 28.5 pg (27.0-31.0); MEAN CORPUSCULAR HGB CONC 32.8 g/dL (33.0-37.0); MEAN PLATELET VOLUME 8.9 fL (7.2-11.7); MONO # 0.7 K/uL (0.0-0.8); MONO % 17.2 % (0.0-10.0); NEUT % 49.1 % (50.0-75.0); NRBC % 0.1 % (0.0-2.0); RBC 4.13 Mil/uL (3.80-5.20); RED CELL DISTRIBUTION WIDTH 14.2 % (11.5-14.5); WHITE BLOOD COUNT 4.1 K/uL (4.8-10.8)
[2017-07-24 06:58] LABS: ALB/GLOB RATIO 1.2 (1.0-2.1); ALBUMIN 3.4 g/dL (3.5-5.0)
[2017-07-24] MEDS: Enoxaparin 60 mg Syringe SC SCH ×2 (09:04→21:45)
[2017-07-24] MEDS: Pantoprazole 40 mg EC Tab PO SCH (09:04)
--- NOTE | 2017-07-24 14:04 | PCM.PSYCH ---
Initial Psychiatric Evaluation - Initial Psychiatric Evaluation Type of Admission: Voluntary Legal Status: Capacity Chief Complaint (in patient's own words): "I'm fine" History of Present Illness and Precipitating Events: 77-year-old female who was brought to the ED on July 22 with complaints of chest pain. Workup showed that patient had an acute NSTEMI and was admitted for telemetry monitoring. Patient began feeling agitated, and would not let the nursing staff attached EKG leads, so psychiatry was consulted. Patient appeared disorganized and internally preoccupied throughout the interview. She was responding to the internal stimuli and appeared paranoid and delusional. Upon speaking with patient in the ICU, she states that she was here because she was looking to buy real estate. Patient was not able to state that she was in a hospital when directly asked where she was. Per nursing staff, patient would frequently get up and wander around the ICU, stating that she was looking for a tall man about 6'7". Patient denies any chest pain at this time, and is very adamant about not taking any medication as "I've never taken drugs in my life and don't want to get hooked on them". However she denied any AVH or any h/o substance abuse. Current Medications: Active Medications Generic Name Dose Route Start Last Admin Trade Name Freq PRN Reason Stop Dose Admin Acetaminophen 650 mg 07/21/17 22:18 07/22/17 10:16 Tylenol 325mg Tab PO 650 mg Q6 PRN Administration pain Anastrozole 1 mg 07/22/17 10:00 07/24/17 09:05 Arimidex 1 Mg Tab PO 1 mg DAILY [facility] Administration Aspirin 81 mg 07/22/17 10:00 07/24/17 09:04 Ecotrin PO 81 mg DAILY [facility] Administration Donepezil HCl 5 mg 07/21/17 22:30 07/23/17 21:12 Aricept PO 5 mg HS [facility] Administration Enoxaparin Sodium 60 mg 07/23/17 22:00 07/24/17 09:04 Lovenox SC 60 mg Q12 [facility] Administration Levetiracetam 500 mg 07/23/17 18:00 07/24/17 09:04 Keppra PO 500 mg BID [facility]ERNA[facility]O Administration Pantoprazole Sodium 40 mg 07/22/17 10:00 07/24/17 09:04 Protonix Ec Tab PO 40 mg DAILY [facility] Administration Quetiapine Fumarate 25 mg 07/21/17 22:30 07/23/17 21:12 Seroquel PO 25 mg HS [facility]ERNA[facility]O Administration Rosuvastatin Calcium 20 mg 07/22/17 22:00 07/23/17 21:12 Crestor PO 20 mg HS [facility]O Administration Past Psychiatric History - Past Psychiatric History Previous Treatment History: None Pertinent Medical Hx (Current Medical&Sleep Prob, Allergies): Allergies Allergy/AdvReac Type Severity Reaction Status Date / Time latex Allergy Verified 03/05/17 13:01 CATS Allergy Uncoded 03/05/17 13:01 Anastrozole [Arimidex 1 mg Tab] 1 mg PO DAILY tab 03/09/17 Donepezil [Aricept] 5 mg PO HS tab 03/09/17 QUEtiapine [Seroquel] 25 mg PO HS tab 03/09/17 levETIRAcetam [Keppra] 500 mg PO BID tab 03/09/17 Review of Systems - Review of Systems All systems: reviewed and no additional remarkable complaints except - Psychiatric Psychiatric: Anxiety, Irritability, Paranoia. absent: Suicidal Ideation Mental Status Examination - Personal Presentation Personal Presentation: Looks stated age - Affect Affect: Broad, Blunted - Motor Activity Motor Activity: Psychomotor Agitation - Reliability in Providing Information Reliability in Providing Information: Poor, due to alteration in thoughts, Poor , due to altered mood, Poor, due to cognitve impairment - Speech Speech: Disorganized, Irrelevant - Mood Mood: Anxious - Formal Thought Process Formal Thought Process: Delusions, Paranoia, Loosening of associations, Circumstantial - Hallucinations/Delusions Delusions: Persecution - Obsessions/Compulsions Obsessions: No Compulsions: No - Cognitive Functions Sensorium: Alert Attention/Concentration: Attentive Abstract Thinking: [place] Estimate of Intelligence: Below average Judgement: Imparied, as evidence by: Poor judgement, Imparied, as evidence by: Lack of insight into illness - Risk Risk: Elopement, Diminished functioning - Strength & Assets Inventory Strength & Assets Inventory: Family support DSM 5 DX - DSM 5 DSM 5 Diagnosis: Delirium due to general medical condition. - Recommended/Plan of Treatment Treatment Recommendations and Plan of Treatment: Delirium due to general medical condition. Give Ativan 0.5 mg IV stat Continue Ativan 0.5 mg IV Q8 hr prn Continue Seroquel 25 mg PO QHS Pt lacks capacity to make any decisions. - Smoking Cessation Smoking Cessation Initiated: No
--- NOTE | 2017-07-24 21:17 | CP.PCM.PN ---
Subjective - Date & Time of Evaluation Date of Evaluation: 07/24/17 Time of Evaluation: 14:10 - Subjective Subjective: clinically same Objective - Vital Signs/Intake and Output Vital Signs (last 24 hours): Temp Pulse Resp BP Pulse Ox 98.5 F 77 19 90/51 L 99 07/24/17 08:00 07/24/17 16:49 07/24/17 16:49 07/24/17 16:49 07/24/17 16:49 Intake and Output: 07/24/17 07/25/17 18:59 06:59 Intake Total 450 Balance 450 - Medications Medications: Current Medications Acetaminophen (Tylenol 325mg Tab) 650 mg PO Q6 PRN PRN Reason: pain Last Admin: 07/22/17 10:16 Dose: 650 mg Anastrozole (Arimidex 1 Mg Tab) 1 mg PO DAILY [facility] Last Admin: 07/24/17 09:05 Dose: 1 mg Aspirin (Ecotrin) 81 mg PO DAILY [facility] Last Admin: 07/24/17 09:04 Dose: 81 mg Donepezil HCl (Aricept) 5 mg PO HS [facility] Last Admin: 07/23/17 21:12 Dose: 5 mg Enoxaparin Sodium (Lovenox) 60 mg SC Q12 [facility] Last Admin: 07/24/17 09:04 Dose: 60 mg Levetiracetam (Keppra) 500 mg PO BID [facility] Last Admin: 07/24/17 18:55 Dose: 500 mg Lorazepam (Ativan) 0.5 mg IVP Q8 PRN PRN Reason: Agitation Pantoprazole Sodium (Protonix Ec Tab) 40 mg PO DAILY [facility] Last Admin: 07/24/17 09:04 Dose: 40 mg Quetiapine Fumarate (Seroquel) 25 mg PO HS [facility] Last Admin: 07/23/17 21:12 Dose: 25 mg Rosuvastatin Calcium (Crestor) 20 mg PO HS [facility] Last Admin: 07/23/17 21:12 Dose: 20 mg - Labs Labs: 07/24/17 06:34 07/24/17 06:34 PT 13.3 SECONDS (9.7-12.2) H 07/21/17 20:12 INR 1.2 07/21/17 20:12 APTT 30 SECONDS (21-34) 07/21/17 20:12 - Constitutional Appears: Well - Head Exam Head Exam: ATRAUMATIC, NORMAL INSPECTION, NORMOCEPHALIC - Eye Exam Eye Exam: EOMI, Normal appearance, PERRL Pupil Exam: NORMAL ACCOMODATION, PERRL - ENT Exam ENT Exam: Mucous Membranes Moist, Normal Exam - Neck Exam Neck Exam: Full ROM, Normal Inspection. absent: Lymphadenopathy - Respiratory Exam Respiratory Exam: Decreased Breath Sounds - Cardiovascular Exam Cardiovascular Exam: REGULAR RHYTHM, +S1, +S2 - GI/Abdominal Exam GI & Abdominal Exam: Soft, Diminished Bowel Sounds - Rectal Exam Rectal Exam: Deferred Assessment and Plan - Assessment and Plan (Free Text) Plan: Discussed with the hospital housekeeper who needs to speak to the family also discussed with Dr. Ross as patient wanted to leave Patient has non-STEMI and may need a cardiac cath further cardiology plan as per cardiology continue current medications follow-up with the consultations Ativan as needed for agitation's
[2017-07-25] MEDS: Pantoprazole 40 mg EC Tab PO SCH (10:28)
[2017-07-25] MEDS: Enoxaparin 60 mg Syringe SC SCH ×3 (10:30→23:06)
--- NOTE | 2017-07-25 18:15 | CP.PCM.PN ---
Subjective - Date & Time of Evaluation Date of Evaluation: 07/25/17 Objective - Vital Signs/Intake and Output Vital Signs (last 24 hours): Temp Pulse Resp BP Pulse Ox 97.3 F L 103 H 29 H 172/89 H 91 L 07/25/17 16:03 07/25/17 16:49 07/25/17 16:49 07/25/17 16:49 07/25/17 16:49 Intake and Output: 07/25/17 07/25/17 06:59 18:59 Intake Total 240 Balance 240 - Medications Medications: Current Medications Acetaminophen (Tylenol 325mg Tab) 650 mg PO Q6 PRN PRN Reason: pain Last Admin: 07/22/17 10:16 Dose: 650 mg Anastrozole (Arimidex 1 Mg Tab) 1 mg PO DAILY [facility] Last Admin: 07/25/17 11:05 Dose: 1 mg Aspirin (Ecotrin) 81 mg PO DAILY [facility] Last Admin: 07/25/17 10:29 Dose: 81 mg Donepezil HCl (Aricept) 5 mg PO HS [facility] Last Admin: 07/24/17 21:44 Dose: 5 mg Enoxaparin Sodium (Lovenox) 60 mg SC Q12 [facility] Last Admin: 07/25/17 10:30 Dose: 60 mg Levetiracetam (Keppra) 500 mg PO BID [facility] Last Admin: 07/25/17 18:07 Dose: 500 mg Lorazepam (Ativan) 0.5 mg IVP Q8 PRN PRN Reason: Agitation Pantoprazole Sodium (Protonix Ec Tab) 40 mg PO DAILY [facility] Last Admin: 07/25/17 10:28 Dose: 40 mg Quetiapine Fumarate (Seroquel) 25 mg PO HS [facility] Last Admin: 07/24/17 21:45 Dose: 25 mg Rosuvastatin Calcium (Crestor) 20 mg PO HS [facility] Last Admin: 07/24/17 21:44 Dose: 20 mg - Labs Labs: 07/24/17 06:34 07/24/17 06:34 PT 13.3 SECONDS (9.7-12.2) H 07/21/17 20:12 INR 1.2 07/21/17 20:12 APTT 30 SECONDS (21-34) 07/21/17 20:12 Assessment and Plan - Assessment and Plan (Free Text) Plan: Discussed with plane captain Non-ST wave [place] Needs cardiac cath Discussed with Dr. shipman Patient transferred to the floor Medication as ordered Lovenox subcu twice daily
--- NOTE | 2017-07-26 01:49 | CP.PCM.PN ---
Subjective - Date & Time of Evaluation Date of Evaluation: 07/25/17 Time of Evaluation: 18:20 - Subjective Subjective: Patient seen and evaluated Does not want cardiiac cath Patient does not have decision making capacity and no family available Review Of Systems Constitutional: Negative for: Fever Eyes: Negative for: Vision Change Cardiovascular: Positive for: Chest Pain. Negative for: Palpitations Respiratory: Negative for: Shortness of Breath Gastrointestinal: Negative for: Vomiting Genitourinary: Negative for: Dysuria Musculoskeletal: Negative for: Neck Pain Skin: Negative for: Rash Neurological: Positive for: Seizures. Negative for: Weakness, Change in Speech Psych: Negative for: Anxiety Physical Exam - Physical Exam Appears: Non-toxic, No Acute Distress Skin: Warm, Dry Head: Normacephalic Eye(s): bilateral: Normal Inspection, PERRL, EOMI Neck: Trachea Midline, Supple Chest: Symmetrical Cardiovascular: Rhythm Regular Respiratory: No Rales, No Rhonchi, No Wheezing Gastrointestinal/Abdominal: Bowel Sounds (active), Soft, No Tenderness, No Distention, No Guarding, No Rebound Back: Normal Inspection Extremity: Normal ROM Extremity: Bilateral: Atraumatic, Normal Color And Temperature, Normal ROM Pulses: Left Dorsalis Pedis: Normal, Right Dorsalis Pedis: Normal Neurological/Psych: Oriented x3, Normal Speech, Normal Cognition, Normal Motor, Normal Sensation, Normal Reflexes Gait: Steady Objective - Vital Signs/Intake and Output Vital Signs (last 24 hours): Temp Pulse Resp BP Pulse Ox 98.0 F 93 H 20 106/67 98 07/25/17 23:00 07/25/17 23:00 07/25/17 23:00 07/25/17 23:00 07/25/17 23:00 - Medications Medications: Current Medications Acetaminophen (Tylenol 325mg Tab) 650 mg PO Q6 PRN PRN Reason: pain Last Admin: 07/22/17 10:16 Dose: 650 mg Anastrozole (Arimidex 1 Mg Tab) 1 mg PO DAILY [facility] Last Admin: 07/25/17 11:05 Dose: 1 mg Aspirin (Ecotrin) 81 mg PO DAILY [facility] Last Admin: 07/25/17 10:29 Dose: 81 mg Donepezil HCl (Aricept) 5 mg PO HS [facility] Last Admin: 07/25/17 23:06 Dose: Not Given Enoxaparin Sodium (Lovenox) 60 mg SC Q12 [facility] Last Admin: 07/25/17 23:06 Dose: Not Given Levetiracetam (Keppra) 500 mg PO BID [facility] Last Admin: 07/25/17 18:07 Dose: 500 mg Lorazepam (Ativan) 0.5 mg IVP Q8 PRN PRN Reason: Agitation Pantoprazole Sodium (Protonix Ec Tab) 40 mg PO DAILY [facility] Last Admin: 07/25/17 10:28 Dose: 40 mg Quetiapine Fumarate (Seroquel) 25 mg PO [facility] Last Admin: 07/25/17 23:05 Dose: Not Given Rosuvastatin Calcium (Crestor) 20 mg PO [facility] Last Admin: 07/25/17 23:06 Dose: Not Given - Labs Labs: 07/24/17 06:34 07/24/17 06:34 PT 13.3 SECONDS (9.7-12.2) H 07/21/17 20:12 INR 1.2 07/21/17 20:12 APTT 30 SECONDS (21-34) 07/21/17 20:12 Assessment and Plan - Assessment and Plan (Free Text) Assessment: CAD Non ST elevation [place] Does not want cardiiac cath Patient does not have decision making capacity and no family available
[2017-07-26] MEDS: Pantoprazole 40 mg EC Tab PO SCH (09:29)
[2017-07-26] MEDS: Enoxaparin 60 mg Syringe SC SCH ×2 (09:29→21:30)
[2017-07-26 17:49] VITALS: RESP 20
--- NOTE | 2017-07-26 18:10 | CARD ---
APPROVED REPORT EKG Measurement Heart [id number] SD 150P69 [id number] <Conclusion> Normal sinus rhythm Incomplete right bundle branch block Left anterior fascicular block Abnormal ECG
--- NOTE | 2017-07-26 18:13 | CARD ---
APPROVED REPORT EKG Measurement Heart [id number] DC [id number] [id number] <Conclusion> Normal sinus rhythm Left anterior fascicular block Nonspecific ST abnormality Abnormal ECG
--- NOTE | 2017-07-26 22:39 | CP.PCM.PN ---
Subjective - Date & Time of Evaluation Date of Evaluation: 07/26/17 Time of Evaluation: 09:35 - Subjective Subjective: clinically same Objective - Vital Signs/Intake and Output Vital Signs (last 24 hours): Temp Pulse Resp BP Pulse Ox 97.9 F 68 20 113/67 97 07/26/17 15:40 07/26/17 16:00 07/26/17 15:40 07/26/17 15:40 07/26/17 09:00 Intake and Output: 07/26/17 07/27/17 18:59 06:59 Intake Total 350 Balance 350 - Medications Medications: Current Medications Acetaminophen (Tylenol 325mg Tab) 650 mg PO Q6 PRN PRN Reason: pain Last Admin: 07/22/17 10:16 Dose: 650 mg Anastrozole (Arimidex 1 Mg Tab) 1 mg PO DAILY [facility] Last Admin: 07/26/17 09:33 Dose: 1 mg Aspirin (Ecotrin) 81 mg PO DAILY [facility] Last Admin: 07/26/17 09:29 Dose: 81 mg Donepezil HCl (Aricept) 5 mg PO HS [facility] Last Admin: 07/26/17 21:30 Dose: 5 mg Enoxaparin Sodium (Lovenox) 60 mg SC Q12 [facility] Last Admin: 07/26/17 21:30 Dose: 60 mg Levetiracetam (Keppra) 500 mg PO BID [facility] Last Admin: 07/26/17 17:53 Dose: 500 mg Lorazepam (Ativan) 0.5 mg IVP Q8 PRN PRN Reason: Agitation Pantoprazole Sodium (Protonix Ec Tab) 40 mg PO DAILY [facility] Last Admin: 07/26/17 09:29 Dose: 40 mg Quetiapine Fumarate (Seroquel) 25 mg PO HS [facility] Last Admin: 07/26/17 21:30 Dose: 25 mg Rosuvastatin Calcium (Crestor) 20 mg PO HS [facility] Last Admin: 07/26/17 21:29 Dose: 20 mg - Labs Labs: 07/24/17 06:34 07/24/17 06:34 PT 13.3 SECONDS (9.7-12.2) H 07/21/17 20:12 INR 1.2 07/21/17 20:12 APTT 30 SECONDS (21-34) 07/21/17 20:12 - Constitutional Appears: Well - Head Exam Head Exam: ATRAUMATIC, NORMAL INSPECTION, NORMOCEPHALIC - Eye Exam Eye Exam: EOMI, Normal appearance, PERRL Pupil Exam: NORMAL ACCOMODATION, PERRL - ENT Exam ENT Exam: Mucous Membranes Moist, Normal Exam - Neck Exam Neck Exam: Full ROM, Normal Inspection. absent: Lymphadenopathy - Respiratory Exam Respiratory Exam: Decreased Breath Sounds - Cardiovascular Exam Cardiovascular Exam: REGULAR RHYTHM, +S1, +S2 - GI/Abdominal Exam GI & Abdominal Exam: Soft, Diminished Bowel Sounds - Rectal Exam Rectal Exam: Deferred Assessment and Plan - Assessment and Plan (Free Text) Plan: Follow-up with the cardiology awaiting cardiology decision needs to discuss with the family patient does not want a cardiac cath and does not have decision- making capacity will be seen by Dr. Saxena for further decision will discuss with Dr. Luis Antonio harper as ordered
--- NOTE | 2017-07-26 22:57 | CP.PCM.PN ---
Subjective - Date & Time of Evaluation Date of Evaluation: 07/26/17 Time of Evaluation: 09:05 - Subjective Subjective: Patient seen and evaluated No cardiac events noted Review Of Systems Constitutional: Negative for: Fever Eyes: Negative for: Vision Change Cardiovascular: Positive for: Chest Pain. Negative for: Palpitations Respiratory: Negative for: Shortness of Breath Gastrointestinal: Negative for: Vomiting Genitourinary: Negative for: Dysuria Musculoskeletal: Negative for: Neck Pain Skin: Negative for: Rash Neurological: Positive for: Seizures. Negative for: Weakness, Change in Speech Psych: Negative for: Anxiety Physical Exam - Physical Exam Appears: Non-toxic, No Acute Distress Skin: Warm, Dry Head: Normacephalic Eye(s): bilateral: Normal Inspection, PERRL, EOMI Neck: Trachea Midline, Supple Chest: Symmetrical Cardiovascular: Rhythm Regular Respiratory: No Rales, No Rhonchi, No Wheezing Gastrointestinal/Abdominal: Bowel Sounds (active), Soft, No Tenderness, No Distention, No Guarding, No Rebound Back: Normal Inspection Extremity: Normal ROM Extremity: Bilateral: Atraumatic, Normal Color And Temperature, Normal ROM Pulses: Left Dorsalis Pedis: Normal, Right Dorsalis Pedis: Normal Neurological/Psych: Oriented x3, Normal Speech, Normal Cognition, Normal Motor, Normal Sensation, Normal Reflexes Gait: Steady Objective - Vital Signs/Intake and Output Vital Signs (last 24 hours): Temp Pulse Resp BP Pulse Ox 97.9 F 68 20 113/67 97 07/26/17 15:40 07/26/17 16:00 07/26/17 15:40 07/26/17 15:40 07/26/17 09:00 Intake and Output: 07/26/17 07/27/17 18:59 06:59 Intake Total 350 Balance 350 - Medications Medications: Current Medications Acetaminophen (Tylenol 325mg Tab) 650 mg PO Q6 PRN PRN Reason: pain Last Admin: 07/22/17 10:16 Dose: 650 mg Anastrozole (Arimidex 1 Mg Tab) 1 mg PO DAILY [facility] Last Admin: 07/26/17 09:33 Dose: 1 mg Aspirin (Ecotrin) 81 mg PO DAILY [facility] Last Admin: 07/26/17 09:29 Dose: 81 mg Donepezil HCl (Aricept) 5 mg PO HS [facility] Last Admin: 07/26/17 21:30 Dose: 5 mg Enoxaparin Sodium (Lovenox) 60 mg SC Q12 [facility] Last Admin: 07/26/17 21:30 Dose: 60 mg Levetiracetam (Keppra) 500 mg PO BID [facility] Last Admin: 07/26/17 17:53 Dose: 500 mg Lorazepam (Ativan) 0.5 mg IVP Q8 PRN PRN Reason: Agitation Pantoprazole Sodium (Protonix Ec Tab) 40 mg PO DAILY [facility] Last Admin: 07/26/17 09:29 Dose: 40 mg Quetiapine Fumarate (Seroquel) 25 mg PO [facility] Last Admin: 07/26/17 21:30 Dose: 25 mg Rosuvastatin Calcium (Crestor) 20 mg PO [facility] Last Admin: 07/26/17 21:29 Dose: 20 mg - Labs Labs: 07/24/17 06:34 07/24/17 06:34 PT 13.3 SECONDS (9.7-12.2) H 07/21/17 20:12 INR 1.2 07/21/17 20:12 APTT 30 SECONDS (21-34) 07/21/17 20:12 Assessment and Plan - Assessment and Plan (Free Text) Assessment: Patient seen and evaluated Denies chest pain and dyspnea Refusing cardiac cath at present Psych eval appreciated
[2017-07-27 08:38] VITALS: O2SAT 98
[2017-07-27] MEDS: Enoxaparin 60 mg Syringe SC SCH (09:39)
[2017-07-27] MEDS: Pantoprazole 40 mg EC Tab PO SCH (09:39)
--- NOTE | 2017-07-27 13:24 | CP.PCM.PN ---
Subjective - Date & Time of Evaluation Date of Evaluation: 07/27/17 Time of Evaluation: 13:22 - Subjective Subjective: DISCUSSED PLAN WITH DR. WILHELM TODAY AND CLEARED FROM CARDIO STANDPOINT; MED MANAGEMENT ONLY. OK PER Shikha KC TO DISCHARGE HOME TODAY PT HAS SIGNIFICANT OTHER WHO SHE LIVES WITH THAT HELPS WITH HER DAILY CARE. NEW RX INCLUDE ASA AND STATIN; SENT DIRECTLY TO PT'S PHARMACY. PT TO F/U WITH DR. KC WITHIN 5-7 DAYS. NO FURTHER ORDERS. D/C PLAN FOR PT: -FOLLOW UP WITH DR. Jose KC IN THE OFFICE WITHIN 5-7 DAYS OF DISCHARGE HOME---- MAKE SURE YOU CALL DR. KC'S OFFICE ON SUNDAY TO MAKE AN APPOINTMENT. -FOLLOW UP WITH DR. WILHELM (HEART DOCTOR) IN THE OFFICE WITHIN 7-10 DAYS OF DISCHARGE HOME----MAKE SURE YOU CALL DR. KC'S OFFICE ON SUNDAY TO MAKE AN APPOINTMENT. -YOU HAVE BEEN ARRANGED TO HAVE HOME PHYSICAL THERAPY AND NURSING SERVICES FOR YOUR DEMENTIA. -CONTINUE TAKING YOUR HOME MEDICATIONS USUAL. -NEW PRESCRIPTIONS SENT TO YOUR PHARMACY INCLUDE: 1) ASPIRIN 81 MG BY MOUTH ONCE A DAY. 2) CRESTOR 20 MG BY MOUTH AT BEDTIME. -IF YOU HAVE ANY OTHER CONCERNS OR QUESTIONS, CONTACT DR. KC'S OFFICE. Objective - Vital Signs/Intake and Output Vital Signs (last 24 hours): Temp Pulse Resp BP Pulse Ox 97.7 F 68 20 92/49 L 98 07/27/17 08:36 07/27/17 12:00 07/27/17 08:36 07/27/17 08:36 07/27/17 08:36 Intake and Output: 07/27/17 07/27/17 06:59 18:59 Intake Total 0 Balance 0 - Medications Medications: Current Medications Acetaminophen (Tylenol 325mg Tab) 650 mg PO Q6 PRN PRN Reason: pain Last Admin: 07/22/17 10:16 Dose: 650 mg Anastrozole (Arimidex 1 Mg Tab) 1 mg PO DAILY [facility] Last Admin: 07/27/17 09:39 Dose: 1 mg Aspirin (Ecotrin) 81 mg PO DAILY [facility] Last Admin: 07/27/17 09:39 Dose: 81 mg Donepezil HCl (Aricept) 5 mg PO HS [facility] Last Admin: 07/26/17 21:30 Dose: 5 mg Enoxaparin Sodium (Lovenox) 60 mg SC Q12 [facility] Last Admin: 07/27/17 09:39 Dose: 60 mg Levetiracetam (Keppra) 500 mg PO BID [facility] Last Admin: 07/27/17 09:38 Dose: 500 mg Lorazepam (Ativan) 0.5 mg IVP Q8 PRN PRN Reason: Agitation Pantoprazole Sodium (Protonix Ec Tab) 40 mg PO DAILY [facility] Last Admin: 07/27/17 09:39 Dose: 40 mg Quetiapine Fumarate (Seroquel) 25 mg PO HS [facility] Last Admin: 07/26/17 21:30 Dose: 25 mg Rosuvastatin Calcium (Crestor) 20 mg PO HS [facility] Last Admin: 07/26/17 21:29 Dose: 20 mg - Labs Labs: 07/24/17 06:34 07/24/17 06:34 PT 13.3 SECONDS (9.7-12.2) H 07/21/17 20:12 INR 1.2 07/21/17 20:12 APTT 30 SECONDS (21-34) 07/21/17 20:12
[2017-07-27 16:48] VITALS: BP 105/62; PULSE 67; TEMP 98.4
--- NOTE | 2017-07-27 19:22 | CP.PCM.PN ---
Subjective - Date & Time of Evaluation Date of Evaluation: 07/27/17 Time of Evaluation: 08:50 - Subjective Subjective: clinically same Objective - Vital Signs/Intake and Output Vital Signs (last 24 hours): Temp Pulse Resp BP Pulse Ox 98.4 F 67 20 105/62 98 07/27/17 16:00 07/27/17 16:00 07/27/17 16:00 07/27/17 16:00 07/27/17 16:00 Intake and Output: 07/27/17 07/28/17 18:59 06:59 Intake Total 400 Balance 400 - Medications Medications: Current Medications Acetaminophen (Tylenol 325mg Tab) 650 mg PO Q6 PRN PRN Reason: pain Last Admin: 07/22/17 10:16 Dose: 650 mg Anastrozole (Arimidex 1 Mg Tab) 1 mg PO DAILY [facility] Last Admin: 07/27/17 09:39 Dose: 1 mg Aspirin (Ecotrin) 81 mg PO DAILY [facility] Last Admin: 07/27/17 09:39 Dose: 81 mg Donepezil HCl (Aricept) 5 mg PO HS [facility] Last Admin: 07/26/17 21:30 Dose: 5 mg Enoxaparin Sodium (Lovenox) 60 mg SC Q12 [facility] Last Admin: 07/27/17 09:39 Dose: 60 mg Levetiracetam (Keppra) 500 mg PO BID [facility] Last Admin: 07/27/17 09:38 Dose: 500 mg Lorazepam (Ativan) 0.5 mg IVP Q8 PRN PRN Reason: Agitation Pantoprazole Sodium (Protonix Ec Tab) 40 mg PO DAILY [facility] Last Admin: 07/27/17 09:39 Dose: 40 mg Quetiapine Fumarate (Seroquel) 25 mg PO HS [facility] Last Admin: 07/26/17 21:30 Dose: 25 mg Rosuvastatin Calcium (Crestor) 20 mg PO HS [facility] Last Admin: 07/26/17 21:29 Dose: 20 mg - Labs Labs: 07/24/17 06:34 07/24/17 06:34 PT 13.3 SECONDS (9.7-12.2) H 07/21/17 20:12 INR 1.2 07/21/17 20:12 APTT 30 SECONDS (21-34) 07/21/17 20:12
== END 2017-07-27 19:41 | disposition home or self-care (01) | DRG 281 ==
LOC: C.ER 19:44 → C.9E 21:07 → C.9I 07-22 12:26 → C.6T 07-25 13:18
PROVIDERS: ADMIT Internal Medicine Nephrology; ATTEND Internal Medicine Nephrology
DX: I21.4 Non-ST elevation (NSTEMI) myocardial infarction (principal); F05 Delirium due to known physiological condition; G40.909 Epilepsy, unspecified, not intractable, without status epilepticus; F03.90 Unspecified dementia, unspecified severity, without behavioral disturbance, psychotic disturbance, mood disturbance, and anxiety; I25.10 Atherosclerotic heart disease of native coronary artery without angina pectoris; Z68.20 Body mass index [BMI] 20.0-20.9, adult

== ENCOUNTER 2017-10-05 15:51 | Inpatient (IN) | payer MEDICARE, BC ==
[2017-10-05 15:51] VITALS: BMI 16.1
[2017-10-05] MEDS ORDERED: Tetanus/Diphtheria Toxoids 0.5 ml Syringe IM ONE ×2 (16:14→17:30)
--- NOTE | 2017-10-05 17:26 | CT ---
PROCEDURE: CT MAXILLOFACIAL BONES WITHOUT CONTRAST HISTORY: facial injury r/o facial fracture COMPARISON: None TECHNIQUE: Contiguous axial CT images of the maxillofacial bones were obtained. Coronal and sagittal reformats were generated. Radiation dose: Total exam DLP = 711.92 mGy-cm. This CT exam was performed using one or more of the following dose reduction techniques: Automated exposure control, adjustment of the mA and/or kV according to patient size, and/or use of iterative reconstruction technique. FINDINGS: NASAL BONES: Unremarkable. ORBITS: Unremarkable. PARANASAL SINUSES/ MASTOIDS: Clear. MAXILLA: Unremarkable. MANDIBLE/ TEMPOROMANDIBULAR JOINTS: Unremarkable. SKULL BASE: Unremarkable. TEMPORAL BONES: Middle ears and mastoid grossly unremarkable. OTHER FINDINGS: None. IMPRESSION: Unremarkable non contrast enhanced CT of the maxillofacial bones.
--- NOTE | 2017-10-05 17:30 | CT ---
PROCEDURE: CT HEAD WITHOUT CONTRAST. HISTORY: head injury r/o bleed COMPARISON: 07/03/2017. TECHNIQUE: Axial computed tomography images were obtained through the head/brain without intravenous contrast. Coronal and sagittal reconstructed images. Radiation dose: Total exam DLP = 680.29 mGy-cm. This CT exam was performed using one or more of the following dose reduction techniques: Automated exposure control, adjustment of the mA and/or kV according to patient size, and/or use of iterative reconstruction technique. FINDINGS: HEMORRHAGE: No intracranial hemorrhage. BRAIN: No mass effect or edema. Cortical and cerebellar atrophy, periventricular small vessel disease. VENTRICLES: Unremarkable. No hydrocephalus. CALVARIUM: Unremarkable. PARANASAL SINUSES: Unremarkable as visualized. No significant inflammatory changes. MASTOID AIR CELLS: Unremarkable as visualized. No inflammatory changes. OTHER FINDINGS: None. IMPRESSION: No acute intracranial abnormalities. No significant findings to account for the clinical presentation. No significant interval change compared to the prior examination(s).
[2017-10-05] MEDS ORDERED: Sodium Chloride 0.9% 500 ML IV ONE ×2 (17:32→18:50)
[2017-10-05 17:53] LABS: BASO # 0.1 K/uL (0.0-0.2); BASO % 1.3 % (0.0-2.0); EOS # 0.1 K/uL (0.0-0.7); EOS % 1.1 % (0.0-4.0); HEMOGLOBIN 12.4 g/dL (11.0-16.0); MEAN CELL VOLUME 89.1 fL (81.0-99.0); MEAN CORPUSCULAR HEMOGLOBIN 29.8 pg (27.0-31.0); MEAN CORPUSCULAR HGB CONC 33.4 g/dL (33.0-37.0); MEAN PLATELET VOLUME 8.7 fL (7.2-11.7); MONO # 0.7 K/uL (0.0-0.8); MONO % 12.7 % (0.0-10.0); NEUT # 3.9 K/uL (1.8-7.0); NEUT % 67.9 % (50.0-75.0); RBC 4.16 Mil/uL (3.80-5.20); RED CELL DISTRIBUTION WIDTH 16.1 % (11.5-14.5); WHITE BLOOD COUNT 5.7 K/uL (4.8-10.8)
[2017-10-05 17:57] LABS: INR 1.2; PROTHROMBIN TIME 12.7 SECONDS (9.7-12.2)
[2017-10-05 18:01] LABS: ALB/GLOB RATIO 1.6 (1.0-2.1); ALBUMIN 4.1 g/dL (3.5-5.0); ALT/SGPT 46 U/L (9-52); AST/SGOT 39 U/L (14-36); BLOOD UREA NITROGEN 14 mg/dL (7-17); CALCIUM 9.4 mg/dl (8.6-10.4); GFR AFRICAN-AMERICAN > 60; GFR NON-AFRICAN AMERICAN > 60
[2017-10-05 18:11] LABS: SQUAMOUS EPITHIAL < 1 /hpf (0-5); URINE BACTERIA OCC (<OCC); URINE BILIRUBIN NEGATIVE (NEGATIVE); URINE BLOOD NEGATIVE (NEGATIVE); URINE CLARITY Clear (Clear); URINE COLOR Yellow (YELLOW); URINE GLUCOSE (UA) NORMAL (Normal); URINE LEUKOCYTE ESTERASE NEG Leu/uL (Negative); URINE PROTEIN NEGATIVE (NEGATIVE); URINE UROBILINOGEN NORMAL mg/dL (0.2-1.0)
--- NOTE | 2017-10-05 18:31 | C.PDOC ---
History Of Present Illness 77 year old female brought in by EMS for evaluation. Patient was found wandering the street and noted to have abrasions and cuts on the left side of her face. Patient states she fell today, hitting the ground but is vague about details of fall, and does remember tripping over anything. Patient has a PMHx of seizure disorder, states she is complaint with medications and denies known seizure today. Patient denies known LOC, blurry vision, headache, dizziness, CP , SOB, palpitations, abdominal pain, nausea/vomiting, fever. - HPI Time Seen by Provider: 10/05/17 16:06 Chief Complaint (Nursing): Trauma History Per: Patient, EMS History/Exam Limitations: other (mildly confused ) Onset/Duration Of Symptoms: Unknown Injury Occurred (Timing): Just Before Arrival Location Of Injury: Left: Face (lips) Severity: Mild Associated Symptoms: Dazed Recent travel outside of the [place]: No Additional History Per: Patient, EMS Past Medical History Reviewed: Historical Data, Nursing Documentation, Vital Signs Vital Signs: Last Vital Signs Temp 98.5 F 10/18/17 08:50 Pulse 68 10/18/17 08:50 Resp 18 10/18/17 08:50 BP 122/73 10/18/17 08:50 Pulse Ox 99 10/18/17 08:50 - Medical History PMH: Seizures (epilepsy) Other PMH: dementia Surgical History: No Surg Hx - [facility] Procedures CATARAC PHACOEMULS/ASPIR (01/27/14) INSERT LENS AT CATAR EXT (01/27/14) MONITORING OF CARDIAC OUTPUT BY OTHER TECHNIQUE (03/31/04) Family History: States: Unknown Family Hx - Social History Hx Alcohol Use: No Hx Substance Use: No - Immunization History Hx Tetanus Toxoid Vaccination: No Hx Influenza Vaccination: No Hx Pneumococcal Vaccination: No Review Of Systems Constitutional: Negative for: Fever, Chills Cardiovascular: Negative for: Chest Pain, Palpitations Respiratory: Negative for: Shortness of Breath Gastrointestinal: Negative for: Nausea, Vomiting, Abdominal Pain Skin: Positive for: Bruising Neurological: Positive for: Confusion. Negative for: Weakness, Numbness, Incoordination, Change in Speech, Altered Mental Status, Headache, Dizziness Psych: Negative for: Anxiety, Depression, Suicidal ideation Physical Exam - Physical Exam Appears: Well, Non-toxic, Confused (midly) Skin: Normal Color, Warm, Dry, No Rash Head: Normacephalic, Abrasion (2 cm abrasion left upper cheek), Other ((-) Smith sign) Eye(s): bilateral: Normal Inspection (no racoon eyes), PERRL, EOMI Ear(s): Bilateral: Normal Nose: Normal, No Discharge, No Epistaxis, No Deformity, No Tenderness Oral Mucosa: Moist Tongue: No Bleeding Lips: Laceration (small, above upper lip) Teeth: Normal Dentition, No Tender To Palpation, No Loose, No Avulsed Gingiva: No Swelling, No Bleeding Neck: Normal, Normal ROM, No Midline Cervical Tenderness, No Paracervical Tenderness, No Step Off Deformity, Supple Chest: Symmetrical Cardiovascular: Rhythm Regular, No Murmur Respiratory: Normal Breath Sounds, No Rales, No Rhonchi, No Wheezing Gastrointestinal/Abdominal: Normal Exam, Bowel Sounds, Soft, No Tenderness Extremity: Normal ROM, No Tenderness, No Deformity, No Swelling Extremity: Bilateral: Atraumatic, No Pedal Edema, Normal Color And Temperature Pulses: Left Dorsalis Pedis: Normal, Right Dorsalis Pedis: Normal Neurological/Psych: No Oriented x3 (AAOx2), Normal Speech, Normal Cognition, Normal Cranial Nerves, No Cerebellar Signs, Normal Motor, Normal Sensation, Other ED Course And Treatment - Laboratory Results Result Diagrams: 10/17/17 06:26 10/17/17 06:26 ECG: Interpreted By Me, Viewed By Me (NSR 92 bpm, left axis deviation, no acute ST/T wave changes) ECG Interpretation: No Acute Changes O2 Sat by Pulse Oximetry: 99 (ON RA) Pulse Ox Interpretation: Normal - CT Scan/US CT head Other Rad Studies (CT/US): Read By Radiologist, Radiology Report Reviewed CT/US Interpretation: Accession No. : [id number]. Patient Name / ID : MIRIAN LAMB / [id number]. Exam Date : 10/05/2017 17:01:06 ( Approved ). Study Comment : Sex / Age : F / 77Y. Creator : Mary Mcclain. Dictator : Omar Butt MD. High School Math Tutor : Credit Counselor : Omar Butt MD. Approver2 : Report Date : 10/05/2017 17:18:41. My Comment : . PROCEDURE: CT HEAD WITHOUT CONTRAST. HISTORY: head injury r/o bleed. COMPARISON: . TECHNIQUE: Axial computed tomography images were obtained through the head/brain without intravenous contrast. Coronal and sagittal reconstructed images. Radiation dose: Total exam DLP = 680.29 mGy-cm. This CT exam was performed using one or more of the following dose reduction techniques: Automated exposure control, adjustment of the mA and/or kV according to patient size, and/or use of iterative reconstruction technique. FINDINGS: HEMORRHAGE: No intracranial hemorrhage. BRAIN: No mass effect or edema. Cortical and cerebellar atrophy, periventricular small vessel disease. VENTRICLES: Unremarkable. No hydrocephalus. CALVARIUM: Unremarkable. PARANASAL SINUSES: Unremarkable as visualized. No significant inflammatory changes. MASTOID AIR CELLS: Unremarkable as visualized. No inflammatory changes. OTHER FINDINGS: None. IMPRESSION: No acute intracranial abnormalities. No significant findings to account for the clinical presentation. No significant interval change compared to the prior examination( s). CT facial Other Rad Studies (CT/US): Read By Radiologist, Radiology Report Reviewed CT/US Interpretation: Accession No. : [id number]. Patient Name / ID : MIRIAN LAMB / [id number]. Exam Date : 10/05/2017 17:05:22 ( Approved ). Study Comment : Sex / Age : F / 77Y. Creator : Mary Mcclain. Dictator : Omar Butt MD. High School Math Tutor : Credit Counselor : Omar Butt MD. Approver2 : Report Date : 10/05/2017 17:18:51. My Comment : . PROCEDURE: CT MAXILLOFACIAL BONES WITHOUT CONTRAST. HISTORY: facial injury r/o facial fracture. COMPARISON: None. TECHNIQUE: Contiguous axial CT images of the maxillofacial bones were obtained. Coronal and sagittal reformats were generated. Radiation dose: Total exam DLP = 711.92 mGy-cm. This CT exam was performed using one or more of the following dose reduction techniques: Automated exposure control, adjustment of the mA and/or kV according to patient size, and/or use of iterative reconstruction technique. FINDINGS: NASAL BONES : Unremarkable. ORBITS: Unremarkable. PARANASAL SINUSES/ MASTOIDS: Clear. MAXILLA: Unremarkable. MANDIBLE/ TEMPOROMANDIBULAR JOINTS: Unremarkable. SKULL BASE: Unremarkable. TEMPORAL BONES: Middle ears and mastoid grossly unremarkable. OTHER FINDINGS: None. IMPRESSION: Unremarkable non contrast enhanced CT of the maxillofacial bones. Progress Note: Plan: Blood work, EKG, UA, CT head and facial bones ordered and reviewed. Patient given IV NS bolus, PO tylenol. IM tetanus vaccination given. Laceration repair done by me, patient tolerated well. 18:00- Family member at bedside, states he thinks she has h/o dementia, she has been havnig recurrent falls and has become increasingly more confused. Unclear if fall today was mechanical vs syncope vs seizure. Will admit patient. - Physician Consult Information Physician Contacted: Ely Duran Laceration - Laceration Repair above upper lip Wound Length (In cm): .5 Description Of Wound: Linear Wound Cleansed With: Sterile Saline Wound Examination: Irrigated With Saline, No FB With Wound Exploration Wound Closure: Skin Glue Wound Complexity: Simple Disposition - Disposition Disposition: HOSPITALIZED Disposition Time: 18:35 Condition: STABLE - Clinical Impression Clinical Impression: Closed head injury, Recurrent falls, Syncope, Altered mental status - Scribe Statement The provider has reviewed the documentation as recorded by the Scribe Gonzalo Yeung All medical record entries made by the Scribe were at my direction and personally dictated by me. I have reviewed the chart and agree that the record accurately reflects my personal performance of the history, physical exam, medical decision making, and the department course for this patient. I have also personally directed, reviewed, and agree with the discharge instructions and disposition. Decision To Admit - Pt Status Changed To: Hospital Disposition Of: Inpatient - Admit Certification Admit to Inpatient:: After my assessment, the patient will require hospitalization for at least two midnights. This is because of the severity of symptoms shown, intensity of services needed, and/or the medical risk in this patient being treated as an outpatient. - InPatient: Physician Admission Certification: I certify that this patient requires 2 or more midnights of care for the following reason:: see notes - . Bed Request Type: Telemetry Admitting Physician: Ely Duran Patient Diagnosis: Closed head injury, Altered mental status, Recurrent falls, Syncope
--- NOTE | 2017-10-05 18:32 | C.PDOC ---
- HPI Time Seen by Provider: 10/05/17 16:06 Chief Complaint (Nursing): Trauma Past Medical History Vital Signs: Last Vital Signs Temp 98.7 F 10/05/17 16:03 Pulse 96 H 10/05/17 16:03 Resp 20 10/05/17 16:03 BP 129/78 10/05/17 16:03 Pulse Ox 99 10/05/17 16:03 - Medical History PMH: Seizures (epilepsy) Denies: Chronic Kidney Disease - [facility] Procedures CATARAC PHACOEMULS/ASPIR (01/27/14) INSERT LENS AT CATAR EXT (01/27/14) MONITORING OF CARDIAC OUTPUT BY OTHER TECHNIQUE (03/31/04) Family History: States: Unknown Family Hx - Social History Hx Alcohol Use: No Hx Substance Use: No - Immunization History Hx Tetanus Toxoid Vaccination: No Hx Influenza Vaccination: No Hx Pneumococcal Vaccination: No ED Course And Treatment - Laboratory Results Result Diagrams: 10/05/17 17:38 10/05/17 17:38 O2 Sat by Pulse Oximetry: 99 Disposition - Disposition
[2017-10-05 19:01] LABS: CK-MB 0.85 ng/mL (0.0-3.38)
--- NOTE | 2017-10-05 23:16 | CP.PCM.HP ---
Past Patient History - Infectious Disease Hx of Infectious Diseases: None - Past Medical History & Family History Past Medical History?: Yes - Past Social History Smoking Status: Never Smoked - CARDIAC Hx Cardiac Disorders: Yes (MVP) - PULMONARY Hx Respiratory Disorders: No - NEUROLOGICAL Hx Seizures: Yes (epilepsy) - HEENT Hx HEENT Problems: Yes Hx Cataracts: Yes - RENAL Hx Chronic Kidney Disease: No - ENDOCRINE/METABOLIC Hx Endocrine Disorders: No - HEMATOLOGICAL/ONCOLOGICAL Hx Blood Disorders: Yes Hx Cancer: Yes (BREAST LEFT) Hx Chemotherapy: Yes (ALSO RADIATION) - INTEGUMENTARY Hx Dermatological Problems: No - MUSCULOSKELETAL/RHEUMATOLOGICAL Hx Musculoskeletal Disorders: Yes Hx Falls: Yes - GASTROINTESTINAL Hx Gastrointestinal Disorders: No - GENITOURINARY/GYNECOLOGICAL Hx Genitourinary Disorders: No - PSYCHIATRIC Hx Substance Use: No - SURGICAL HISTORY Hx Surgeries: Yes Hx Cataract Extraction: Yes (CATARACT EXT LEFT EYE WITH IOLI) Hx Mastectomy: Yes (LUMPECTOMY LEFT BREAST) Hx Tubal Ligation: Yes - ANESTHESIA Hx Anesthesia: Yes Hx Anesthesia Reactions: No Hx Malignant Hyperthermia: No Meds Allergies/Adverse Reactions: Allergies Allergy/AdvReac Type Severity Reaction Status Date / Time latex Allergy Verified 03/05/17 13:01 CATS Allergy Uncoded 03/05/17 13:01 Results - Vital Signs Recent Vital Signs: Last Vital Signs Temp 98.1 F 10/05/17 22:46 Pulse 93 H 10/05/17 22:46 Resp 20 10/05/17 22:46 BP 99/61 L 10/05/17 22:46 Pulse Ox 100 10/05/17 22:46 - Labs Result Diagrams: 10/05/17 17:38 10/05/17 17:38 Labs: Laboratory Results - last 24 hr 10/05/17 10/05/17 10/05/17 17:38 17:38 17:38 WBC 5.7 RBC 4.16 Hgb 12.4 Hct 37.1 MCV 89.1 D MCH 29.8 MCHC 33.4 RDW 16.1 H Plt Count 206 MPV 8.7 Neut % (Auto) 67.9 Lymph % (Auto) 17.0 L Swain % (Auto) 12.7 H Eos % (Auto) 1.1 Baso % (Auto) 1.3 Neut # (Auto) 3.9 Lymph # (Auto) 1.0 Swain # (Auto) 0.7 Eos # (Auto) 0.1 Baso # (Auto) 0.1 PT 12.7 H INR 1.2 APTT 29 Sodium 143 Potassium 4.4 Chloride 104 Carbon Dioxide 26 Anion Gap 17 BUN 14 Creatinine 0.8 Est GFR ( Amer) > 60 Est GFR (Non-Af Amer) > 60 Random Glucose 96 Calcium 9.4 Total Bilirubin 0.6 AST 39 H D ALT 46 Alkaline Phosphatase 77 Total Creatine Kinase 49 CK-MB (Mass) 0.85 Troponin I < 0.0120 Total Protein 6.7 Albumin 4.1 Globulin 2.6 Albumin/Globulin Ratio 1.6 Urine Color Urine Clarity Urine pH Ur Specific [place] Urine Protein Urine Glucose (UA) Urine Ketones Urine Blood Urine Nitrate Urine Bilirubin Urine Urobilinogen Ur Leukocyte Esterase Urine WBC (Auto) Urine RBC (Auto) Ur Squamous Epith Cells Urine Bacteria 10/05/17 17:59 WBC RBC Hgb Hct MCV MCH MCHC RDW Plt Count MPV Neut % (Auto) Lymph % (Auto) Swain % (Auto) Eos % (Auto) Baso % (Auto) Neut # (Auto) Lymph # (Auto) Swain # (Auto) Eos # (Auto) Baso # (Auto) PT INR APTT Sodium Potassium Chloride Carbon Dioxide Anion Gap BUN Creatinine Est GFR ( Amer) Est GFR (Non-Af Amer) Random Glucose Calcium Total Bilirubin AST ALT Alkaline Phosphatase Total Creatine Kinase CK-MB (Mass) Troponin I Total Protein Albumin Globulin Albumin/Globulin Ratio Urine Color Yellow Urine Clarity Clear Urine pH 6.0 Ur Specific [place] 1.010 Urine Protein Negative Urine Glucose (UA) Normal Urine Ketones Negative Urine Blood Negative Urine Nitrate Negative Urine Bilirubin Negative Urine Urobilinogen Normal Ur Leukocyte Esterase Neg Urine WBC (Auto) < 1 Urine RBC (Auto) 1 Ur Squamous Epith Cells < 1 Urine Bacteria Occ H
[2017-10-06 00:56] LABS: CK-MB 1.07 ng/mL (0.0-3.38)
--- NOTE | 2017-10-06 11:35 | CP.PCM.PN ---
Subjective - Date & Time of Evaluation Date of Evaluation: 10/06/17 Time of Evaluation: 12:20 - Subjective Subjective: clinically same Objective - Vital Signs/Intake and Output Vital Signs (last 24 hours): Temp Pulse Resp BP Pulse Ox 98 F 70 20 106/70 95 10/06/17 07:00 10/06/17 07:00 10/06/17 07:00 10/06/17 07:00 10/06/17 07:00 - Medications Medications: Current Medications Anastrozole (Arimidex 1 Mg Tab) 1 mg PO DAILY [facility] Last Admin: 10/06/17 10:04 Dose: 1 mg Aspirin (Ecotrin) 81 mg PO DAILY [facility] Last Admin: 10/06/17 10:04 Dose: 81 mg Donepezil HCl (Aricept) 5 mg PO HS [facility] Levetiracetam (Keppra) 750 mg PO BID [facility] Pneumococcal Polyvalent Vaccine (Pneumovax 23 Vaccine) 0.5 ml IM .ONCE ONE Stop: 10/07/17 10:01 Quetiapine Fumarate (Seroquel) 25 mg PO HS [facility] Rosuvastatin Calcium (Crestor) 20 mg PO HS [facility] - Labs Labs: 10/05/17 17:38 10/05/17 17:38 PT 12.7 SECONDS (9.7-12.2) H 10/05/17 17:38 INR 1.2 10/05/17 17:38 APTT 29 SECONDS (21-34) 10/05/17 17:38 - Constitutional Appears: Well - Head Exam Head Exam: ATRAUMATIC, NORMAL INSPECTION, NORMOCEPHALIC - Eye Exam Eye Exam: EOMI, Normal appearance, PERRL Pupil Exam: NORMAL ACCOMODATION, PERRL - ENT Exam ENT Exam: Mucous Membranes Moist, Normal Exam - Neck Exam Neck Exam: Full ROM, Normal Inspection. absent: Lymphadenopathy - Respiratory Exam Respiratory Exam: Decreased Breath Sounds - Cardiovascular Exam Cardiovascular Exam: REGULAR RHYTHM, +S1, +S2 - GI/Abdominal Exam GI & Abdominal Exam: Soft, Diminished Bowel Sounds - Rectal Exam Rectal Exam: Deferred
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
[2017-10-06] MEDS ORDERED: DiphenhydrAMINE 50 mg/ml Inj IVP PRN (19:24)
--- NOTE | 2017-10-06 23:04 | CP.PCM.PCO ---
Physician Communication Note - Physician Communication Note Physician Communication Note: Dr. Toscano/Dr. Ross will see this patient either on Sunday or Sunday.
--- NOTE | 2017-10-07 03:18 | CON ---
DATE: 10/05/2017REFERRING PHYSICIAN: Dr. Christian Duran. REASON FOR CONSULTATION: Change in mental state and the patient was found wandering. HISTORY OF PRESENT ILLNESS: The patient is a 77-year-old lady brought by EMS for evaluation. The patient was found wandering on the street and noticed to have abrasion and cuts to her left-sided face and upper eyelid. The patient stated that she fell down and hit her head. The patient does not give any detailed history. The patient does not know if she tripped or her leg give away or she lost her consciousness. The patient is not cooperative but the patient was found to have history of seizures. The patient is living with her friend. PAST MEDICAL HISTORY: Unknown more than above. SOCIAL HISTORY: Unknown. FAMILY HISTORY: Unknown. MEDICATIONS: Donepezil, anastrozole, rosuvastatin, aspirin, levetiracetam 500 mg twice a day. PHYSICAL EXAMINATION: VITAL SIGNS: Blood pressure 129/78, pulse 96, respirations 20, temperature afebrile. MENTAL STATUS: The patient is alert, awake, and disoriented. Not cooperative. Does not want to give any further history and refuses to be examined. IMPRESSION: Confusion and wandering with history of seizures, possibility of seizure cannot be excluded or the patient has the baseline dementia associated with behavioral changes. The patient refused to take Keppra. I have recommended to be taken intravenously 750 mg every 12 hours, and patient needs a psychiatric evaluation as well. I have reviewed the patient's CAT scan of the brain which is consistent with atrophy and consistent with age. No acute findings or subdural hematoma. No significant interval changes compared to the previous CAT scan done in 06/2017. Thank you for consultation. Dr. Can will follow up with the patient on Sunday. Issa Singh MD
[2017-10-07] MEDS ORDERED: Pneumococcal 23-Valent Vaccine IM ONE (10:00)
[2017-10-07] MEDS: Dextrose 5%/0.45% NS 1,000 ML IV SCH (15:10)
--- NOTE | 2017-10-07 15:35 | CP.PCM.PN ---
Subjective - Date & Time of Evaluation Date of Evaluation: 10/07/17 Time of Evaluation: 10:40 - Subjective Subjective: clinically same Objective - Vital Signs/Intake and Output Vital Signs (last 24 hours): Temp Pulse Resp BP Pulse Ox 98.1 F 69 20 110/70 100 10/06/17 15:00 10/07/17 13:00 10/06/17 15:00 10/06/17 15:00 10/06/17 15:00 Intake and Output: 10/07/17 10/07/17 06:59 18:59 Intake Total 400 360 Balance 400 360 - Medications Medications: Current Medications Anastrozole (Arimidex 1 Mg Tab) 1 mg PO DAILY [facility] Last Admin: 10/07/17 10:13 Dose: 1 mg Aspirin (Ecotrin) 81 mg PO DAILY [facility] Last Admin: 10/07/17 10:15 Dose: 81 mg Diphenhydramine HCl (Benadryl) 50 mg IVP Q6 PRN PRN Reason: Insomnia IF NPO Diphenhydramine HCl (Benadryl) 50 mg PO Q8 PRN PRN Reason: Insomnia Donepezil HCl (Aricept) 5 mg PO [facility] Last Admin: 10/06/17 21:28 Dose: Not Given Levetiracetam 750 mg/ Sodium (Chloride) 107.5 mls @ 420 mls/hr IVPB Q12H [facility] Last Admin: 10/07/17 05:15 Dose: 420 mls/hr Dextrose/Sodium Chloride (Dextrose 5%/0.45% Ns 1000 Ml) 1,000 mls @ 75 mls/hr IV .[id number] [facility] Last Admin: 10/07/17 15:10 Dose: 75 mls/hr Lorazepam (Ativan) 0.5 mg PO Q8 PRN PRN Reason: Agitation Lorazepam (Ativan) 0.5 mg IVP Q8 PRN PRN Reason: Anxiety Last Admin: 10/06/17 19:42 Dose: 0.5 mg Quetiapine Fumarate (Seroquel) 25 mg PO [facility] Last Admin: 10/06/17 21:28 Dose: Not Given Rosuvastatin Calcium (Crestor) 20 mg PO [facility] Last Admin: 10/06/17 21:28 Dose: Not Given - Labs Labs: 10/05/17 17:38 10/05/17 17:38 PT 12.7 SECONDS (9.7-12.2) H 10/05/17 17:38 INR 1.2 10/05/17 17:38 APTT 29 SECONDS (21-34) 10/05/17 17:38 - Constitutional Appears: Well - Head Exam Head Exam: ATRAUMATIC, NORMAL INSPECTION, NORMOCEPHALIC - Eye Exam Eye Exam: EOMI, Normal appearance, PERRL Pupil Exam: NORMAL ACCOMODATION, PERRL - ENT Exam ENT Exam: Mucous Membranes Moist, Normal Exam - Neck Exam Neck Exam: Full ROM, Normal Inspection. absent: Lymphadenopathy - Respiratory Exam Respiratory Exam: Decreased Breath Sounds - Cardiovascular Exam Cardiovascular Exam: REGULAR RHYTHM, +S1, +S2 - GI/Abdominal Exam GI & Abdominal Exam: Soft, Diminished Bowel Sounds - Rectal Exam Rectal Exam: Deferred
[2017-10-08] MEDS: Dextrose 5%/0.45% NS 1,000 ML IV SCH ×2 (05:20→17:40)
[2017-10-08 08:45] LABS: FREE T4 1.01 ng/dL (0.78-2.19)
[2017-10-08 09:16] LABS: FOLATE > 20.0 ng/mL
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
--- NOTE | 2017-10-08 12:40 | CT ---
PROCEDURE: CT HEAD WITHOUT CONTRAST. HISTORY: repeat catscan pt refused MRI COMPARISON: 10/05/2017 TECHNIQUE: Axial computed tomography images were obtained through the head/brain without intravenous contrast. Radiation dose: Total exam DLP = 956.78 mGy-cm. This CT exam was performed using one or more of the following dose reduction techniques: Automated exposure control, adjustment of the mA and/or kV according to patient size, and/or use of iterative reconstruction technique. FINDINGS: HEMORRHAGE: No intracranial hemorrhage. BRAIN: No mass effect or edema. Mild diffuse age-appropriate cerebral atrophy. Patchy and confluent areas of deep and periventricular white matter lucency consistent with microvascular ischemic change. No evidence of acute infarct. VENTRICLES: Unremarkable. No hydrocephalus. CALVARIUM: Unremarkable. PARANASAL SINUSES: Unremarkable as visualized. No significant inflammatory changes. MASTOID AIR CELLS: Unremarkable as visualized. No inflammatory changes. OTHER FINDINGS: None. IMPRESSION: No intracranial hemorrhage. Age-appropriate atrophy and chronic white matter ischemic change. Otherwise unremarkable.
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
--- NOTE | 2017-10-08 14:33 | CP.PCM.PN ---
Subjective - Date & Time of Evaluation Date of Evaluation: 10/08/17 Time of Evaluation: 10:00 - Subjective Subjective: clinically same Objective - Vital Signs/Intake and Output Vital Signs (last 24 hours): Temp Pulse Resp BP Pulse Ox 98.1 F 62 20 99/61 L 100 10/08/17 07:00 10/08/17 08:21 10/08/17 07:00 10/08/17 07:00 10/08/17 07:00 Intake and Output: 10/08/17 10/08/17 06:59 18:59 Intake Total 600 Balance 600 - Medications Medications: Current Medications Acetaminophen (Tylenol 325mg Tab) 650 mg PO Q6 PRN PRN Reason: Pain, Mild (1-3) Anastrozole (Arimidex 1 Mg Tab) 1 mg PO DAILY [facility] Last Admin: 10/08/17 09:26 Dose: 1 mg Aspirin (Ecotrin) 81 mg PO DAILY [facility] Last Admin: 10/08/17 09:25 Dose: 81 mg Diphenhydramine HCl (Benadryl) 50 mg IVP Q6 PRN PRN Reason: Insomnia IF NPO Diphenhydramine HCl (Benadryl) 50 mg PO Q8 PRN PRN Reason: Insomnia Donepezil HCl (Aricept) 5 mg PO [facility] Last Admin: 10/07/17 21:30 Dose: Not Given Levetiracetam 750 mg/ Sodium (Chloride) 107.5 mls @ 420 mls/hr IVPB Q12H [facility] Last Admin: 10/08/17 05:27 Dose: 420 mls/hr Dextrose/Sodium Chloride (Dextrose 5%/0.45% Ns 1000 Ml) 1,000 mls @ 75 mls/hr IV .[id number] [facility] Last Admin: 10/08/17 05:20 Dose: Not Given Lorazepam (Ativan) 0.5 mg PO Q8 PRN PRN Reason: Agitation Lorazepam (Ativan) 0.5 mg IVP Q8 PRN PRN Reason: Anxiety Last Admin: 10/08/17 00:41 Dose: 0.5 mg Quetiapine Fumarate (Seroquel) 25 mg PO [facility] Last Admin: 10/07/17 21:31 Dose: Not Given Rosuvastatin Calcium (Crestor) 20 mg PO [facility] Last Admin: 10/07/17 21:31 Dose: Not Given - Labs Labs: 10/05/17 17:38 10/05/17 17:38 PT 12.7 SECONDS (9.7-12.2) H 10/05/17 17:38 INR 1.2 10/05/17 17:38 APTT 29 SECONDS (21-34) 10/05/17 17:38 - Constitutional Appears: Well - Head Exam Head Exam: ATRAUMATIC, NORMAL INSPECTION, NORMOCEPHALIC - Eye Exam Eye Exam: EOMI, Normal appearance, PERRL - ENT Exam ENT Exam: Mucous Membranes Moist, Normal Exam - Neck Exam Neck Exam: Full ROM, Normal Inspection. absent: Lymphadenopathy - Respiratory Exam Respiratory Exam: Decreased Breath Sounds - Cardiovascular Exam Cardiovascular Exam: REGULAR RHYTHM, +S1, +S2 - GI/Abdominal Exam GI & Abdominal Exam: Soft, Diminished Bowel Sounds - Rectal Exam Rectal Exam: Deferred Assessment and Plan - Assessment and Plan (Free Text) Plan: Mechanical fall Admit to tele -Unclear etiology as patient is a poor historian/confused (baseline orientation to person only) -Seizure vs vagal mediated -Cardiology reviewed patient's previous cardiac workups, no high risk features -Repeat CT Head shows no intracranial hemorrhage. Age appropriate atrophy and chronic white matter ischemic change -CT Maxillofacial unremarkable -Neurology consulted, Dr. Can help appreciated -Follow up EEG Pt refusing MRI brain Dementia, Alzheimer type -Psychiatry consulted -Seroquel 25mg HS -Ativan 0.5mg IV Q8 prn Seizure -Seizure precaution -Keppra 750mg IV Q12 -Neurology Consulted, Dr. Can help appreciated Prophylactic measures -Lovenox -Protonix -PT/OT: Home with services Disposition: Pt refusing MRI. DC ok per neuro when medically stable. SW states patient with guardianship hearing on 10/17/17.
--- NOTE | 2017-10-08 15:49 | PN ---
DATE: 10/08/2017 TIME OF EVALUATION: 06:30 a.m. NEUROLOGICAL PROBLEM: Change in mental status,, history of seizures and dementia. The patient was seen by Dr. Singh over the weekend. His consultation has been appreciated and his recommended workup is in progress. PHYSICAL EXAMINATION VITAL SIGNS: Blood pressure 116/64, mean arterial pressure of 81, respiratory rate 18, temperature 98.3, pulse rate 65. NEUROLOGIC: The patient is sleeping, arousable on calling her name. She knows in the facility which can be helped for her problem. Year is 2011. Answering somewhat appropriately, makes sense. However, not to that extent. She is following one-step command. Does not follow complex commands. Moves all 4 extremities against gravity. Per current examination, from the fall, left eye raccoon eye and left knee is bruised. Extraocular movement intact. She could be able to count the fingers. No facial asymmetry. Coordination: Gait is deferred at this time. Deep tendon reflexes are absent. Plantars are upgoing on both sides. ASSESSMENT: Ms. Sofia Danielle has been presenting as per neurological examination, possibly the partial complex seizures, for clinical presentation of wandering in the street with falls, which also superimposed with her underlying dementia, which we were not able to figure it out without knowing her baseline mental status. However, new neurological insult should be considered. The patient carries a history of seizures, which she is not on any medication and compliant with the medication as recommended as per the patient herself. RECOMMENDATIONS: Agree with Kemonika for now and further workup is also requested as per the order. The patient will be followed closely. DVT prophylaxis and the patient should get out of bed and physical therapy should be initiated. The patient will be followed closely with you. Khang Can MD JAMAL
[2017-10-08 21:15] LABS: BASO % 0.6 % (0.0-2.0); EOS # 0.2 K/uL (0.0-0.7); EOS % 3.8 % (0.0-4.0); HEMOGLOBIN 11.9 g/dL (11.0-16.0); LYMPH # 1.2 K/uL (1.0-4.3); LYMPH % 28.1 % (20.0-40.0); MEAN CELL VOLUME 88.3 fL (81.0-99.0); MEAN CORPUSCULAR HEMOGLOBIN 30.3 pg (27.0-31.0); MEAN CORPUSCULAR HGB CONC 34.3 g/dL (33.0-37.0); MEAN PLATELET VOLUME 8.8 fL (7.2-11.7); MONO # 0.5 K/uL (0.0-0.8); MONO % 10.6 % (0.0-10.0); NEUT # 2.5 K/uL (1.8-7.0); NEUT % 56.9 % (50.0-75.0); NRBC % 0.1 % (0.0-2.0); RBC 3.91 Mil/uL (3.80-5.20); WHITE BLOOD COUNT 4.4 K/uL (4.8-10.8)
[2017-10-08 21:22] LABS: ALB/GLOB RATIO 1.2 (1.0-2.1); ALBUMIN 3.4 g/dL (3.5-5.0); ALT/SGPT 34 U/L (9-52); AST/SGOT 33 U/L (14-36); BLOOD UREA NITROGEN 11 mg/dL (7-17); CALCIUM 9.2 mg/dl (8.6-10.4); GFR AFRICAN-AMERICAN > 60; GFR NON-AFRICAN AMERICAN > 60
[2017-10-09] MEDS: Dextrose 5%/0.45% NS 1,000 ML IV SCH ×2 (07:15→20:20)
[2017-10-09] MEDS: Pantoprazole 40 mg EC Tab PO SCH (10:44)
[2017-10-09] MEDS: Enoxaparin 40 mg Syringe SC SCH (10:44)
--- NOTE | 2017-10-09 15:40 | CARD ---
APPROVED REPORT EKG Measurement Heart [id number] <Conclusion> Normal sinus rhythm Left anterior fascicular block Abnormal ECG
--- NOTE | 2017-10-09 18:29 | CP.PCM.PN ---
Subjective - Date & Time of Evaluation Date of Evaluation: 10/09/17 Time of Evaluation: 11:20 - Subjective Subjective: clinically same Objective - Vital Signs/Intake and Output Vital Signs (last 24 hours): Temp Pulse Resp BP Pulse Ox 98.1 F 74 18 125/64 100 10/09/17 16:57 10/09/17 16:57 10/09/17 16:57 10/09/17 16:57 10/09/17 16:57 Intake and Output: 10/09/17 10/09/17 06:59 18:59 Intake Total 960 Balance 960 - Medications Medications: Current Medications Acetaminophen (Tylenol 325mg Tab) 650 mg PO Q6 PRN PRN Reason: Pain, Mild (1-3) Anastrozole (Arimidex 1 Mg Tab) 1 mg PO DAILY [facility] Last Admin: 10/09/17 10:43 Dose: Not Given Aspirin (Ecotrin) 81 mg PO DAILY [facility] Last Admin: 10/09/17 10:43 Dose: Not Given Diphenhydramine HCl (Benadryl) 50 mg IVP Q6 PRN PRN Reason: Insomnia IF NPO Diphenhydramine HCl (Benadryl) 50 mg PO Q8 PRN PRN Reason: Insomnia Donepezil HCl (Aricept) 5 mg PO HS [facility] Last Admin: 10/08/17 22:45 Dose: Not Given Enoxaparin Sodium (Lovenox) 40 mg SC DAILY [facility] Last Admin: 10/09/17 10:44 Dose: Not Given Levetiracetam 750 mg/ Sodium (Chloride) 107.5 mls @ 420 mls/hr IVPB Q12H [facility] Last Admin: 10/09/17 06:26 Dose: Not Given Dextrose/Sodium Chloride (Dextrose 5%/0.45% Ns 1000 Ml) 1,000 mls @ 75 mls/hr IV .[id number] [facility] Last Admin: 10/09/17 07:15 Dose: Not Given Lorazepam (Ativan) 0.5 mg PO Q8 PRN PRN Reason: Agitation Lorazepam (Ativan) 0.5 mg IVP Q8 PRN PRN Reason: Anxiety Last Admin: 10/08/17 00:41 Dose: 0.5 mg Pantoprazole Sodium (Protonix Ec Tab) 40 mg PO DAILY [facility] Last Admin: 10/09/17 10:44 Dose: Not Given Quetiapine Fumarate (Seroquel) 25 mg PO HS [facility] Last Admin: 10/08/17 22:44 Dose: Not Given Rosuvastatin Calcium (Crestor) 20 mg PO HS [facility] Last Admin: 10/08/17 22:45 Dose: Not Given - Labs Labs: 10/08/17 07:20 10/08/17 07:20 PT 12.7 SECONDS (9.7-12.2) H 10/05/17 17:38 INR 1.2 10/05/17 17:38 APTT 29 SECONDS (21-34) 10/05/17 17:38 - Constitutional Appears: Well - Head Exam Head Exam: ATRAUMATIC, NORMAL INSPECTION, NORMOCEPHALIC - Eye Exam Eye Exam: EOMI, Normal appearance, PERRL Pupil Exam: NORMAL ACCOMODATION, PERRL - ENT Exam ENT Exam: Mucous Membranes Moist, Normal Exam - Neck Exam Neck Exam: Full ROM, Normal Inspection. absent: Lymphadenopathy - Respiratory Exam Respiratory Exam: Decreased Breath Sounds - Cardiovascular Exam Cardiovascular Exam: REGULAR RHYTHM, +S1, +S2 - GI/Abdominal Exam GI & Abdominal Exam: Soft, Diminished Bowel Sounds - Rectal Exam Rectal Exam: Deferred
[2017-10-10 07:48] LABS: BASO # 0.1 K/uL (0.0-0.2); BASO % 1.5 % (0.0-2.0); EOS # 0.2 K/uL (0.0-0.7); EOS % 5.5 % (0.0-4.0); HEMOGLOBIN 11.3 g/dL (11.0-16.0); LYMPH # 1.3 K/uL (1.0-4.3); MEAN CORPUSCULAR HEMOGLOBIN 30.2 pg (27.0-31.0); MEAN CORPUSCULAR HGB CONC 33.9 g/dL (33.0-37.0); MEAN PLATELET VOLUME 8.3 fL (7.2-11.7); MONO # 0.5 K/uL (0.0-0.8); MONO % 11.8 % (0.0-10.0); NEUT # 2.2 K/uL (1.8-7.0); NEUT % 51.2 % (50.0-75.0); NRBC % 0.1 % (0.0-2.0); RBC 3.76 Mil/uL (3.80-5.20); RED CELL DISTRIBUTION WIDTH 15.5 % (11.5-14.5); WHITE BLOOD COUNT 4.3 K/uL (4.8-10.8)
[2017-10-10 07:50] LABS: ALB/GLOB RATIO 1.4 (1.0-2.1); ALBUMIN 3.7 g/dL (3.5-5.0); ALT/SGPT 22 U/L (9-52); AST/SGOT 26 U/L (14-36); BLOOD UREA NITROGEN 16 mg/dL (7-17); CALCIUM 8.6 mg/dl (8.6-10.4); GFR AFRICAN-AMERICAN > 60; GFR NON-AFRICAN AMERICAN > 60
[2017-10-10] MEDS: Pantoprazole 40 mg EC Tab PO SCH (09:50)
[2017-10-10] MEDS: Enoxaparin 40 mg Syringe SC SCH (09:50)
[2017-10-10] MEDS: Dextrose 5%/0.45% NS 1,000 ML IV SCH (10:00)
--- NOTE | 2017-10-10 12:15 | PN ---
DATE: 10/10/2017 TIME OF EVALUATION: 07:20 a.m. NEUROLOGICAL PROBLEM: Change in mental status, possible encephalopathy, underlying senile dementia of Alzheimer's type. PHYSICAL EXAMINATION: VITAL SIGNS: Blood pressure 124/73, mean artery pressure of 90, respiratory rate 18, temperature 98 degrees Fahrenheit. NEUROLOGIC: The patient is more awake and alert. Speech is fluent. Moves all 4 extremities as per the command. Mental status, she does not know the year. She thinks she is going to be discharged for this in this week. However, denies any subjective complaints. Her recent workup: WBC is 4.4, hemoglobin 11.9, hematocrit 34.5, platelets 185. PT 12.7, INR 1.2, PTT 29. Sodium 141, potassium 3.8, chloride 108, bicarbonate 22, BUN 11, creatinine is 0.6. GFR more than 60. B12 is 723, TSH is 2.14. The patient refused to go for MRI. Further workup is recommended as per the orders. The patient should get out of the bed. DVT prophylaxis, physical therapy should be initiated. When medically stable, the patient can be discharged. Khang Can MD
--- NOTE | 2017-10-10 13:15 | CP.PCM.PN ---
<Jose Howell - Last Filed: 10/10/17 13:12> Subjective - Date & Time of Evaluation Date of Evaluation: 10/10/17 Time of Evaluation: 13:12 - Subjective Subjective: Progress note for Dr. Duran Patient seen and examined at bedside. Today patient is oriented to person only, not time/place/context. She denies acute complaints: including dizziness, SOB, chest pain, or palpitations. However, accurate ROS unavailable due to patient's mental status. Objective - Vital Signs/Intake and Output Vital Signs (last 24 hours): Temp Pulse Resp BP Pulse Ox 97.8 F 62 20 114/58 L 98 10/10/17 08:05 10/10/17 08:05 10/10/17 08:05 10/10/17 08:05 10/10/17 08:05 Intake and Output: 10/10/17 10/10/17 06:59 18:59 Intake Total 580 Balance 580 - Medications Medications: Current Medications Acetaminophen (Tylenol 325mg Tab) 650 mg PO Q6 PRN PRN Reason: Pain, Mild (1-3) Last Admin: 10/09/17 18:10 Dose: 650 mg Anastrozole (Arimidex 1 Mg Tab) 1 mg PO DAILY [facility] Last Admin: 10/10/17 09:47 Dose: 1 mg Aspirin (Ecotrin) 81 mg PO DAILY [facility] Last Admin: 10/10/17 09:49 Dose: Not Given Diphenhydramine HCl (Benadryl) 50 mg IVP Q6 PRN PRN Reason: Insomnia IF NPO Diphenhydramine HCl (Benadryl) 50 mg PO Q8 PRN PRN Reason: Insomnia Donepezil HCl (Aricept) 5 mg PO HS [facility] Last Admin: 10/09/17 22:01 Dose: Not Given Enoxaparin Sodium (Lovenox) 40 mg SC DAILY [facility] Last Admin: 10/10/17 09:50 Dose: Not Given Levetiracetam 750 mg/ Sodium (Chloride) 107.5 mls @ 420 mls/hr IVPB Q12H [facility] Last Admin: 10/10/17 05:45 Dose: 420 mls/hr Dextrose/Sodium Chloride (Dextrose 5%/0.45% Ns 1000 Ml) 1,000 mls @ 75 mls/hr IV .[id number] [facility] Last Admin: 10/10/17 10:00 Dose: Not Given Lorazepam (Ativan) 0.5 mg PO Q8 PRN PRN Reason: Agitation Lorazepam (Ativan) 0.5 mg IVP Q8 PRN PRN Reason: Anxiety Last Admin: 10/08/17 00:41 Dose: 0.5 mg Pantoprazole Sodium (Protonix Ec Tab) 40 mg PO DAILY [facility] Last Admin: 10/10/17 09:50 Dose: Not Given Quetiapine Fumarate (Seroquel) 25 mg PO [facility] Last Admin: 10/09/17 22:01 Dose: Not Given Rosuvastatin Calcium (Crestor) 20 mg PO [facility] Last Admin: 10/09/17 22:01 Dose: Not Given - Labs Labs: 10/10/17 07:22 10/10/17 07:22 PT 12.7 SECONDS (9.7-12.2) H 10/05/17 17:38 INR 1.2 10/05/17 17:38 APTT 29 SECONDS (21-34) 10/05/17 17:38 - Additional Findings Additional findings: - Constitutional Appears: No Acute Distress - Head Exam Head Exam: NORMAL INSPECTION, NORMOCEPHALIC. absent: ATRAUMATIC (L. periorbital bruising) - Eye Exam Eye Exam: EOMI, Normal appearance, PERRL - ENT Exam ENT Exam: Mucous Membranes Moist, Normal Oropharynx - Neck Exam Neck exam: Positive for: Full Rom, Normal Inspection. Negative for: Tenderness - Respiratory Exam Respiratory Exam: Clear to Auscultation Bilateral. absent: Rhonchi, Wheezes - Cardiovascular Exam Cardiovascular Exam: REGULAR RHYTHM, +S1, +S2. absent: Diastolic murmur, Gallop , Rubs, Systolic Murmur - GI/Abdominal Exam GI & Abdominal Exam: Normal Bowel Sounds, Soft. absent: Tenderness - Extremities Exam Extremities exam: Positive for: normal inspection, pedal pulses present. Negative for: calf tenderness, pedal edema - Neurological Exam Neurological exam: Alert - Skin Skin Exam: Normal Color, Warm Assessment and Plan - Assessment and Plan (Free Text) Plan: Mechanical fall Admit to tele -Unclear etiology as patient is a poor historian/confused -Seizure vs vagal mediated -Cardiology reviewed patient's previous cardiac workups, no high risk features -Repeat CT Head shows no intracranial hemorrhage. Age appropriate atrophy and chronic white matter ischemic change -CT Maxillofacial unremarkable -Neurology consulted, Dr. Can help appreciated -Follow up EEG Pt refusing MRI brain Dementia, Alzheimer type -Psychiatry consulted -Seroquel 25mg HS -Ativan 0.5mg IV Q8 prn Seizure -Seizure precaution -Keppra 750mg Q12 -Neurology Consulted, Dr. Can help appreciated Prophylactic measures -Lovenox -Protonix -PT/OT Disposition: Pt refusing MRI. DC ok per neuro when medically stable. Case discussed with attending physician All management per Dr. Duran <Ely Duran S - Last Filed: 10/18/17 00:54> Objective - Vital Signs/Intake and Output Vital Signs (last 24 hours): Temp Pulse Resp BP Pulse Ox 98.2 F 92 H 20 99/55 L 99 10/17/17 15:49 10/17/17 15:49 10/17/17 15:49 10/17/17 15:49 10/17/17 15:49 Intake and Output: 10/17/17 10/18/17 18:59 06:59 Intake Total 600 Output Total 5 Balance 595 - Medications Medications: Current Medications Acetaminophen (Tylenol 325mg Tab) 650 mg PO Q6 PRN PRN Reason: Pain, Mild (1-3) Last Admin: 10/16/17 20:35 Dose: 650 mg Anastrozole (Arimidex 1 Mg Tab) 1 mg PO DAILY [facility] Last Admin: 10/17/17 10:33 Dose: 1 mg Aspirin (Ecotrin) 81 mg PO DAILY [facility] Last Admin: 10/17/17 11:35 Dose: Not Given Diphenhydramine HCl (Benadryl) 50 mg IVP Q6 PRN PRN Reason: Insomnia IF NPO Last Admin: 10/14/17 09:18 Dose: 50 mg Diphenhydramine HCl (Benadryl) 50 mg PO Q8 PRN PRN Reason: Insomnia Last Admin: 10/16/17 20:35 Dose: 50 mg Donepezil HCl (Aricept) 5 mg PO HS [facility] Last Admin: 10/17/17 22:12 Dose: Not Given Levetiracetam (Keppra) 750 mg PO BID [facility] Last Admin: 10/17/17 17:40 Dose: 750 mg Lorazepam (Ativan) 0.5 mg IVP Q8H PRN PRN Reason: Anxiety Pantoprazole Sodium (Protonix Ec Tab) 40 mg PO DAILY [facility] Last Admin: 10/17/17 11:35 Dose: Not Given Quetiapine Fumarate (Seroquel) 25 mg PO HS [facility] Last Admin: 10/17/17 22:13 Dose: Not Given Rosuvastatin Calcium (Crestor) 20 mg PO HS [facility] Last Admin: 10/17/17 22:12 Dose: Not Given - Labs Labs: 10/17/17 06:26 10/17/17 06:26 PT 12.7 SECONDS (9.7-12.2) H 10/05/17 17:38 INR 1.2 10/05/17 17:38 APTT 29 SECONDS (21-34) 10/05/17 17:38 Attending/Attestation - Attestation I have personally seen and examined this patient.: Yes I have fully participated in the care of the patient.: Yes I have reviewed all pertinent clinical information, including history, physical exam and plan: Yes
--- NOTE | 2017-10-10 17:28 | CP.PCM.PN ---
Subjective - Date & Time of Evaluation Date of Evaluation: 10/10/17 Time of Evaluation: 12:20 - Subjective Subjective: clinically same Objective - Vital Signs/Intake and Output Vital Signs (last 24 hours): Temp Pulse Resp BP Pulse Ox 97.9 F 84 18 99/55 L 97 10/10/17 15:00 10/10/17 15:00 10/10/17 15:00 10/10/17 15:00 10/10/17 15:00 Intake and Output: 10/10/17 10/10/17 06:59 18:59 Intake Total 580 Balance 580 - Medications Medications: Current Medications Acetaminophen (Tylenol 325mg Tab) 650 mg PO Q6 PRN PRN Reason: Pain, Mild (1-3) Last Admin: 10/09/17 18:10 Dose: 650 mg Anastrozole (Arimidex 1 Mg Tab) 1 mg PO DAILY [facility] Last Admin: 10/10/17 09:47 Dose: 1 mg Aspirin (Ecotrin) 81 mg PO DAILY [facility] Last Admin: 10/10/17 09:49 Dose: Not Given Diphenhydramine HCl (Benadryl) 50 mg IVP Q6 PRN PRN Reason: Insomnia IF NPO Diphenhydramine HCl (Benadryl) 50 mg PO Q8 PRN PRN Reason: Insomnia Donepezil HCl (Aricept) 5 mg PO HS [facility] Last Admin: 10/09/17 22:01 Dose: Not Given Enoxaparin Sodium (Lovenox) 40 mg SC DAILY [facility] Last Admin: 10/10/17 09:50 Dose: Not Given Levetiracetam 750 mg/ Sodium (Chloride) 107.5 mls @ 420 mls/hr IVPB Q12H [facility] Last Admin: 10/10/17 05:45 Dose: 420 mls/hr Lorazepam (Ativan) 0.5 mg PO Q8 PRN PRN Reason: Agitation Lorazepam (Ativan) 0.5 mg IVP Q8 PRN PRN Reason: Anxiety Last Admin: 10/08/17 00:41 Dose: 0.5 mg Pantoprazole Sodium (Protonix Ec Tab) 40 mg PO DAILY [facility] Last Admin: 10/10/17 09:50 Dose: Not Given Quetiapine Fumarate (Seroquel) 25 mg PO [facility] Last Admin: 05/22/18 22:01 Dose: Not Given Rosuvastatin Calcium (Crestor) 20 mg PO HS [facility] Last Admin: 10/09/17 22:01 Dose: Not Given - Labs Labs: 10/10/17 07:22 10/10/17 07:22 PT 12.7 SECONDS (9.7-12.2) H 10/05/17 17:38 INR 1.2 10/05/17 17:38 APTT 29 SECONDS (21-34) 10/05/17 17:38 - Constitutional Appears: Well - Head Exam Head Exam: ATRAUMATIC, NORMAL INSPECTION, NORMOCEPHALIC - Eye Exam Eye Exam: EOMI, Normal appearance, PERRL Pupil Exam: NORMAL ACCOMODATION, PERRL - ENT Exam ENT Exam: Mucous Membranes Moist, Normal Exam - Neck Exam Neck Exam: Full ROM, Normal Inspection. absent: Lymphadenopathy - Respiratory Exam Respiratory Exam: Decreased Breath Sounds - Cardiovascular Exam Cardiovascular Exam: REGULAR RHYTHM, +S1, +S2 - GI/Abdominal Exam GI & Abdominal Exam: Soft, Diminished Bowel Sounds - Rectal Exam Rectal Exam: Deferred Assessment and Plan - Assessment and Plan (Free Text) Plan: Mechanical fall Admit to tele -Unclear etiology as patient is a poor historian/confused -Seizure vs vagal mediated -Cardiology reviewed patient's previous cardiac workups, no high risk features -Repeat CT Head shows no intracranial hemorrhage. Age appropriate atrophy and chronic white matter ischemic change -CT Maxillofacial unremarkable -Neurology consulted, Dr. Can help appreciated -Follow up EEG Pt refusing MRI brain Dementia, Alzheimer type -Psychiatry consulted -Seroquel 25mg HS -Ativan 0.5mg IV Q8 prn Seizure -Seizure precaution -Keppra 750mg Q12 -Neurology Consulted, Dr. Can help appreciated Prophylactic measures -Lovenox -Protonix -PT/OT Disposition: Pt refusing MRI. DC ok per neuro when medically stable.
[2017-10-11] MEDS: Pantoprazole 40 mg EC Tab PO SCH (09:32)
[2017-10-11] MEDS: Enoxaparin 40 mg Syringe SC SCH (09:32)
--- NOTE | 2017-10-11 09:52 | CP.PCM.PN ---
<Jose oHwell - Last Filed: 10/11/17 16:43> Subjective - Date & Time of Evaluation Date of Evaluation: 10/11/17 Time of Evaluation: 09:48 - Subjective Subjective: Progress note for Dr. Duran Patient seen and examined at bedside. Today patient again found oriented to person only, not time/place/context. Patient denies acute complaints today but again reliable ROS unavailable due to pt mental status. Objective - Vital Signs/Intake and Output Vital Signs (last 24 hours): Temp Pulse Resp BP Pulse Ox 98 F 66 20 130/84 96 10/10/17 23:00 10/10/17 23:00 10/10/17 23:00 10/10/17 23:00 10/10/17 23:00 Intake and Output: 10/11/17 10/11/17 06:59 18:59 Intake Total 520 Balance 520 - Medications Medications: Current Medications Acetaminophen (Tylenol 325mg Tab) 650 mg PO Q6 PRN PRN Reason: Pain, Mild (1-3) Last Admin: 10/09/17 18:10 Dose: 650 mg Anastrozole (Arimidex 1 Mg Tab) 1 mg PO DAILY [facility] Last Admin: 10/11/17 09:31 Dose: 1 mg Aspirin (Ecotrin) 81 mg PO DAILY [facility] Last Admin: 10/11/17 09:32 Dose: Not Given Diphenhydramine HCl (Benadryl) 50 mg IVP Q6 PRN PRN Reason: Insomnia IF NPO Diphenhydramine HCl (Benadryl) 50 mg PO Q8 PRN PRN Reason: Insomnia Donepezil HCl (Aricept) 5 mg PO HS [facility] Last Admin: 10/10/17 21:29 Dose: 5 mg Enoxaparin Sodium (Lovenox) 40 mg SC DAILY [facility] Last Admin: 10/11/17 09:32 Dose: Not Given Levetiracetam 750 mg/ Sodium (Chloride) 107.5 mls @ 420 mls/hr IVPB Q12H [facility] Last Admin: 10/11/17 06:51 Dose: Not Given Lorazepam (Ativan) 0.5 mg PO Q8 PRN PRN Reason: Agitation Lorazepam (Ativan) 0.5 mg IVP Q8 PRN PRN Reason: Anxiety Last Admin: 10/08/17 00:41 Dose: 0.5 mg Pantoprazole Sodium (Protonix Ec Tab) 40 mg PO DAILY [facility] Last Admin: 10/11/17 09:32 Dose: Not Given Quetiapine Fumarate (Seroquel) 25 mg PO HS [facility] Last Admin: 10/10/17 21:29 Dose: 25 mg Rosuvastatin Calcium (Crestor) 20 mg PO HS [facility] Last Admin: 10/10/17 21:29 Dose: 20 mg - Labs Labs: 10/10/17 07:22 10/10/17 07:22 PT 12.7 SECONDS (9.7-12.2) H 10/05/17 17:38 INR 1.2 10/05/17 17:38 APTT 29 SECONDS (21-34) 10/05/17 17:38 - Additional Findings Additional findings: - Constitutional Appears: No Acute Distress - Head Exam Head Exam: NORMAL INSPECTION, NORMOCEPHALIC. absent: ATRAUMATIC (L. periorbital bruising improving) - Eye Exam Eye Exam: EOMI, Normal appearance, PERRL - ENT Exam ENT Exam: Mucous Membranes Moist, Normal Oropharynx - Neck Exam Neck exam: Positive for: Full Rom, Normal Inspection. Negative for: Tenderness - Respiratory Exam Respiratory Exam: Clear to Auscultation Bilateral. absent: Rhonchi, Wheezes - Cardiovascular Exam Cardiovascular Exam: REGULAR RHYTHM, +S1, +S2. absent: Diastolic murmur, Gallop , Rubs, Systolic Murmur - GI/Abdominal Exam GI & Abdominal Exam: Normal Bowel Sounds, Soft. absent: Tenderness - Extremities Exam Extremities exam: Positive for: normal inspection, pedal pulses present. Negative for: calf tenderness, pedal edema - Neurological Exam Neurological exam: Alert - Skin Skin Exam: Normal Color, Warm Assessment and Plan - Assessment and Plan (Free Text) Plan: Mechanical fall Admit to tele -Unclear etiology as patient is a poor historian/confused (baseline orientation to person only) -Seizure vs vagal mediated -Cardiology reviewed patient's previous cardiac workups, no high risk features -Repeat CT Head shows no intracranial hemorrhage. Age appropriate atrophy and chronic white matter ischemic change -CT Maxillofacial unremarkable -Neurology consulted, Dr. Can help appreciated -Follow up EEG Pt refusing MRI brain Dementia, Alzheimer type -Psychiatry consulted -Seroquel 25mg HS -Ativan 0.5mg IV Q8 prn Seizure -Seizure precaution -Keppra 750mg IV Q12 -Neurology Consulted, Dr. Can help appreciated Prophylactic measures -Lovenox -Protonix -PT/OT: Home with services Disposition: Pt refusing MRI. DC ok per neuro when medically stable. SW states patient with guardianship hearing on 10/17/17. Case discussed with attending physician All management per Dr. Duran <Ely Duran S - Last Filed: 10/18/17 00:55> Objective - Vital Signs/Intake and Output Vital Signs (last 24 hours): Temp Pulse Resp BP Pulse Ox 98.2 F 92 H 20 99/55 L 99 10/17/17 15:49 10/17/17 15:49 10/17/17 15:49 10/17/17 15:49 10/17/17 15:49 Intake and Output: 10/17/17 10/18/17 18:59 06:59 Intake Total 600 Output Total 5 Balance 595 - Medications Medications: Current Medications Acetaminophen (Tylenol 325mg Tab) 650 mg PO Q6 PRN PRN Reason: Pain, Mild (1-3) Last Admin: 10/16/17 20:35 Dose: 650 mg Anastrozole (Arimidex 1 Mg Tab) 1 mg PO DAILY [facility] Last Admin: 10/17/17 10:33 Dose: 1 mg Aspirin (Ecotrin) 81 mg PO DAILY [facility] Last Admin: 10/17/17 11:35 Dose: Not Given Diphenhydramine HCl (Benadryl) 50 mg IVP Q6 PRN PRN Reason: Insomnia IF NPO Last Admin: 10/14/17 09:18 Dose: 50 mg Diphenhydramine HCl (Benadryl) 50 mg PO Q8 PRN PRN Reason: Insomnia Last Admin: 10/16/17 20:35 Dose: 50 mg Donepezil HCl (Aricept) 5 mg PO HS [facility] Last Admin: 10/17/17 22:12 Dose: Not Given Levetiracetam (Keppra) 750 mg PO BID [facility] Last Admin: 10/17/17 17:40 Dose: 750 mg Lorazepam (Ativan) 0.5 mg IVP Q8H PRN PRN Reason: Anxiety Pantoprazole Sodium (Protonix Ec Tab) 40 mg PO DAILY [facility] Last Admin: 10/17/17 11:35 Dose: Not Given Quetiapine Fumarate (Seroquel) 25 mg PO HS [facility] Last Admin: 10/17/17 22:13 Dose: Not Given Rosuvastatin Calcium (Crestor) 20 mg PO HS [facility] Last Admin: 10/17/17 22:12 Dose: Not Given - Labs Labs: 10/17/17 06:26 10/17/17 06:26 PT 12.7 SECONDS (9.7-12.2) H 10/05/17 17:38 INR 1.2 10/05/17 17:38 APTT 29 SECONDS (21-34) 10/05/17 17:38 Attending/Attestation - Attestation I have personally seen and examined this patient.: Yes I have fully participated in the care of the patient.: Yes I have reviewed all pertinent clinical information, including history, physical exam and plan: Yes
--- NOTE | 2017-10-11 10:19 | PN ---
DATE: 10/11/2017 TIME OF EVALUATION: 07:10 a.m. NEUROLOGICAL PROBLEM: Post-concussion syndrome and seizure disorder, noncompliant with medication. PHYSICAL EXAMINATION: VITAL SIGNS: Blood pressure 130/84, mean arterial pressure of 89, respiratory rate 16, temperature afebrile. NEUROLOGIC: The patient is sleepy; on calling her name, arousable; speech is clear. Moving all 4 extremities. The patient is tolerating well with levetiracetam. Electroencephalogram does not show any focal slowing or paroxysmal activities. RECOMMENDATIONS: Continue the present management, proper hydration, physical therapy. The patient should be reassured and advised to continue the medication, this IV dose can be changed to p.o. dose when patient tolerates p.o. dose. Khang Can MD
--- NOTE | 2017-10-11 21:11 | CP.PCM.PN ---
Subjective - Date & Time of Evaluation Date of Evaluation: 10/11/17 Time of Evaluation: 10:40 - Subjective Subjective: clinically same Objective - Vital Signs/Intake and Output Vital Signs (last 24 hours): Temp Pulse Resp BP Pulse Ox 97.2 F L 90 18 92/64 L 100 10/11/17 15:00 10/11/17 15:00 10/11/17 15:00 10/11/17 15:00 10/11/17 15:00 - Medications Medications: Current Medications Acetaminophen (Tylenol 325mg Tab) 650 mg PO Q6 PRN PRN Reason: Pain, Mild (1-3) Last Admin: 10/09/17 18:10 Dose: 650 mg Anastrozole (Arimidex 1 Mg Tab) 1 mg PO DAILY [facility] Last Admin: 10/11/17 09:31 Dose: 1 mg Aspirin (Ecotrin) 81 mg PO DAILY [facility] Last Admin: 10/11/17 09:32 Dose: Not Given Diphenhydramine HCl (Benadryl) 50 mg IVP Q6 PRN PRN Reason: Insomnia IF NPO Diphenhydramine HCl (Benadryl) 50 mg PO Q8 PRN PRN Reason: Insomnia Donepezil HCl (Aricept) 5 mg PO [facility] Last Admin: 10/11/17 21:04 Dose: 5 mg Enoxaparin Sodium (Lovenox) 40 mg SC DAILY [facility] Last Admin: 10/11/17 09:32 Dose: Not Given Levetiracetam 750 mg/ Sodium (Chloride) 107.5 mls @ 420 mls/hr IVPB Q12H [facility] Last Admin: 10/11/17 17:16 Dose: 420 mls/hr Lorazepam (Ativan) 0.5 mg PO Q8 PRN PRN Reason: Agitation Lorazepam (Ativan) 0.5 mg IVP Q8 PRN PRN Reason: Anxiety Last Admin: 10/11/17 13:58 Dose: 0.5 mg Pantoprazole Sodium (Protonix Ec Tab) 40 mg PO DAILY [facility] Last Admin: 10/11/17 09:32 Dose: Not Given Quetiapine Fumarate (Seroquel) 25 mg PO HS [facility] Last Admin: 10/11/17 21:04 Dose: 25 mg Rosuvastatin Calcium (Crestor) 20 mg PO HS [facility] Last Admin: 10/11/17 21:04 Dose: Not Given - Labs Labs: 10/10/17 07:22 10/10/17 07:22 PT 12.7 SECONDS (9.7-12.2) H 10/05/17 17:38 INR 1.2 10/05/17 17:38 APTT 29 SECONDS (21-34) 10/05/17 17:38 - Constitutional Appears: Well - Head Exam Head Exam: ATRAUMATIC, NORMAL INSPECTION, NORMOCEPHALIC - Eye Exam Eye Exam: EOMI, Normal appearance, PERRL Pupil Exam: NORMAL ACCOMODATION, PERRL - ENT Exam ENT Exam: Mucous Membranes Moist, Normal Exam - Neck Exam Neck Exam: Full ROM, Normal Inspection. absent: Lymphadenopathy - Respiratory Exam Respiratory Exam: Decreased Breath Sounds - Cardiovascular Exam Cardiovascular Exam: REGULAR RHYTHM, +S1, +S2 - GI/Abdominal Exam GI & Abdominal Exam: Soft, Diminished Bowel Sounds - Rectal Exam Rectal Exam: Deferred Assessment and Plan - Assessment and Plan (Free Text) Plan: Mechanical fall Admit to tele -Unclear etiology as patient is a poor historian/confused (baseline orientation to person only) -Seizure vs vagal mediated -Cardiology reviewed patient's previous cardiac workups, no high risk features -Repeat CT Head shows no intracranial hemorrhage. Age appropriate atrophy and chronic white matter ischemic change -CT Maxillofacial unremarkable -Neurology consulted, Dr. Can help appreciated -Follow up EEG Pt refusing MRI brain Dementia, Alzheimer type -Psychiatry consulted -Seroquel 25mg HS -Ativan 0.5mg IV Q8 prn Seizure -Seizure precaution -Keppra 750mg IV Q12 -Neurology Consulted, Dr. Can help appreciated Prophylactic measures -Lovenox -Protonix -PT/OT: Home with services Disposition: Pt refusing MRI. DC ok per neuro when medically stable. SW states patient with guardianship hearing on 10/17/17.
--- NOTE | 2017-10-12 09:35 | CP.PCM.PN ---
<Jose Howell - Last Filed: 10/12/17 10:16> Subjective - Date & Time of Evaluation Date of Evaluation: 10/12/17 Time of Evaluation: 09:35 - Subjective Subjective: Progress note for Dr. Duran Patient seen and examined at bedside. Nursing reports no acute events overnight. Oriented x 1 - person only. Found sleeping comfortably in bed. Patient again denies acute complaints today, and states she is eating ok and moving her bowels. ROS unavailable due to pt mental status. Objective - Vital Signs/Intake and Output Vital Signs (last 24 hours): Temp Pulse Resp BP Pulse Ox 98.0 F 76 20 100/62 97 10/11/17 23:30 10/11/17 23:30 10/11/17 23:30 10/11/17 23:30 10/11/17 23:30 Intake and Output: 10/12/17 10/12/17 06:59 18:59 Intake Total 100 Balance 100 - Medications Medications: Current Medications Acetaminophen (Tylenol 325mg Tab) 650 mg PO Q6 PRN PRN Reason: Pain, Mild (1-3) Last Admin: 10/09/17 18:10 Dose: 650 mg Anastrozole (Arimidex 1 Mg Tab) 1 mg PO DAILY [facility] Last Admin: 10/11/17 09:31 Dose: 1 mg Aspirin (Ecotrin) 81 mg PO DAILY [facility] Last Admin: 10/11/17 09:32 Dose: Not Given Diphenhydramine HCl (Benadryl) 50 mg IVP Q6 PRN PRN Reason: Insomnia IF NPO Diphenhydramine HCl (Benadryl) 50 mg PO Q8 PRN PRN Reason: Insomnia Donepezil HCl (Aricept) 5 mg PO HS [facility] Last Admin: 10/11/17 21:04 Dose: 5 mg Enoxaparin Sodium (Lovenox) 40 mg SC DAILY [facility] Last Admin: 10/11/17 09:32 Dose: Not Given Levetiracetam 750 mg/ Sodium (Chloride) 107.5 mls @ 420 mls/hr IVPB Q12H [facility] Last Admin: 10/12/17 05:20 Dose: 420 mls/hr Lorazepam (Ativan) 0.5 mg PO Q8 PRN PRN Reason: Agitation Lorazepam (Ativan) 0.5 mg IVP Q8 PRN PRN Reason: Anxiety Last Admin: 10/11/17 13:58 Dose: 0.5 mg Pantoprazole Sodium (Protonix Ec Tab) 40 mg PO DAILY [facility] Last Admin: 10/11/17 09:32 Dose: Not Given Quetiapine Fumarate (Seroquel) 25 mg PO HS [facility] Last Admin: 10/11/17 21:04 Dose: 25 mg Rosuvastatin Calcium (Crestor) 20 mg PO HS [facility] Last Admin: 10/11/17 21:04 Dose: Not Given - Labs Labs: 10/10/17 07:22 10/10/17 07:22 PT 12.7 SECONDS (9.7-12.2) H 10/05/17 17:38 INR 1.2 10/05/17 17:38 APTT 29 SECONDS (21-34) 10/05/17 17:38 - Additional Findings Additional findings: - Constitutional Appears: No Acute Distress - Head Exam Head Exam: NORMAL INSPECTION, NORMOCEPHALIC. absent: ATRAUMATIC (L. periorbital bruising improving) - Eye Exam Eye Exam: EOMI, Normal appearance, PERRL - ENT Exam ENT Exam: Mucous Membranes Moist, Normal Oropharynx - Neck Exam Neck exam: Positive for: Full Rom, Normal Inspection. Negative for: Tenderness - Respiratory Exam Respiratory Exam: Clear to Auscultation Bilateral. absent: Rhonchi, Wheezes - Cardiovascular Exam Cardiovascular Exam: REGULAR RHYTHM, +S1, +S2. absent: Diastolic murmur, Gallop , Rubs, Systolic Murmur - GI/Abdominal Exam GI & Abdominal Exam: Normal Bowel Sounds, Soft. absent: Tenderness - Extremities Exam Extremities exam: Positive for: normal inspection, pedal pulses present. Negative for: calf tenderness, pedal edema - Neurological Exam Neurological exam: Alert - Skin Skin Exam: Normal Color, Warm Assessment and Plan - Assessment and Plan (Free Text) Plan: Mechanical fall Admit to tele -Unclear etiology as patient is a poor historian/confused (baseline orientation to person only) -Seizure vs vagal mediated -Cardiology reviewed patient's previous cardiac workups, no high risk features -Repeat CT Head shows no intracranial hemorrhage. Age appropriate atrophy and chronic white matter ischemic change -CT Maxillofacial unremarkable -Neurology consulted, Dr. Can help appreciated -Follow up EEG Pt refusing MRI brain Dementia, Alzheimer type -Psychiatry consulted -Seroquel 25mg HS -Ativan 0.5mg IV Q8 prn Seizure -Seizure precaution -Keppra 750mg IV Q12 -Neurology Consulted, Dr. Can help appreciated Leukopenia WBC 4.3 (10/10/17), Afebrile Monitor f/u AM labs Prophylactic measures -Lovenox -Protonix -PT/OT: Home with services Disposition: Pt refusing MRI. DC ok per neuro when medically stable. SW states patient with guardianship hearing on 10/17/17. Case discussed with attending physician All management per Dr. Duran <Ely Duran S - Last Filed: 10/18/17 00:52> Objective - Vital Signs/Intake and Output Vital Signs (last 24 hours): Temp Pulse Resp BP Pulse Ox 98.2 F 92 H 20 99/55 L 99 10/17/17 15:49 10/17/17 15:49 10/17/17 15:49 10/17/17 15:49 10/17/17 15:49 Intake and Output: 10/17/17 10/18/17 18:59 06:59 Intake Total 600 Output Total 5 Balance 595 - Medications Medications: Current Medications Acetaminophen (Tylenol 325mg Tab) 650 mg PO Q6 PRN PRN Reason: Pain, Mild (1-3) Last Admin: 10/16/17 20:35 Dose: 650 mg Anastrozole (Arimidex 1 Mg Tab) 1 mg PO DAILY [facility] Last Admin: 10/17/17 10:33 Dose: 1 mg Aspirin (Ecotrin) 81 mg PO DAILY [facility] Last Admin: 10/17/17 11:35 Dose: Not Given Diphenhydramine HCl (Benadryl) 50 mg IVP Q6 PRN PRN Reason: Insomnia IF NPO Last Admin: 10/14/17 09:18 Dose: 50 mg Diphenhydramine HCl (Benadryl) 50 mg PO Q8 PRN PRN Reason: Insomnia Last Admin: 10/16/17 20:35 Dose: 50 mg Donepezil HCl (Aricept) 5 mg PO HS [facility] Last Admin: 10/17/17 22:12 Dose: Not Given Levetiracetam (Keppra) 750 mg PO BID [facility] Last Admin: 10/17/17 17:40 Dose: 750 mg Lorazepam (Ativan) 0.5 mg IVP Q8H PRN PRN Reason: Anxiety Pantoprazole Sodium (Protonix Ec Tab) 40 mg PO DAILY [facility] Last Admin: 10/17/17 11:35 Dose: Not Given Quetiapine Fumarate (Seroquel) 25 mg PO HS [facility] Last Admin: 10/17/17 22:13 Dose: Not Given Rosuvastatin Calcium (Crestor) 20 mg PO HS [facility] Last Admin: 10/17/17 22:12 Dose: Not Given - Labs Labs: 10/17/17 06:26 10/17/17 06:26 PT 12.7 SECONDS (9.7-12.2) H 10/05/17 17:38 INR 1.2 10/05/17 17:38 APTT 29 SECONDS (21-34) 10/05/17 17:38 Attending/Attestation - Attestation I have personally seen and examined this patient.: Yes I have fully participated in the care of the patient.: Yes I have reviewed all pertinent clinical information, including history, physical exam and plan: Yes
[2017-10-12] MEDS: Pantoprazole 40 mg EC Tab PO SCH (11:31)
[2017-10-12] MEDS: Enoxaparin 40 mg Syringe SC SCH (11:31)
--- NOTE | 2017-10-12 13:36 | EEG ---
DATE: 10/09/2017 This is a 16-channel electroencephalogram of awake and confused adult. During the study, photic stimulation was performed, hyperventilation was not performed. The resting electroencephalogram consists of moderate voltage 5 to 7 Hz theta activity seen at parietal and occipital leads. Anterior fast activity superimposed with 2 to 3 Hz of delta activity seen at frontal and the central leads. Intermittent movement artifact contaminate the left frontal and temporal leads. Rest of the activities remain same as before. The photic stimulation did not evoke driving response noted at 2 to 20 Hz. IMPRESSION: This is an abnormal electroencephalogram because of persistent slowing throughout the record suggestive of bilateral cerebral dysfunction. This is probably secondary to metabolic, vascular, degenerative process. Please correlate the findings with the neurological and radiological studies. Khang Can MD
--- NOTE | 2017-10-12 18:12 | CP.PCM.PN ---
Subjective - Date & Time of Evaluation Date of Evaluation: 10/12/17 Time of Evaluation: 11:40 - Subjective Subjective: clinically same Objective - Vital Signs/Intake and Output Vital Signs (last 24 hours): Temp Pulse Resp BP Pulse Ox 97.3 F L 89 20 93/50 L 98 10/12/17 15:00 10/12/17 15:00 10/12/17 15:00 10/12/17 15:00 10/12/17 15:00 Intake and Output: 10/12/17 10/12/17 06:59 18:59 Intake Total 100 380 Balance 100 380 - Medications Medications: Current Medications Acetaminophen (Tylenol 325mg Tab) 650 mg PO Q6 PRN PRN Reason: Pain, Mild (1-3) Last Admin: 10/09/17 18:10 Dose: 650 mg Anastrozole (Arimidex 1 Mg Tab) 1 mg PO DAILY [facility] Last Admin: 10/12/17 11:26 Dose: 1 mg Aspirin (Ecotrin) 81 mg PO DAILY [facility] Last Admin: 10/12/17 11:31 Dose: Not Given Diphenhydramine HCl (Benadryl) 50 mg IVP Q6 PRN PRN Reason: Insomnia IF NPO Diphenhydramine HCl (Benadryl) 50 mg PO Q8 PRN PRN Reason: Insomnia Donepezil HCl (Aricept) 5 mg PO HS [facility] Last Admin: 10/11/17 21:04 Dose: 5 mg Enoxaparin Sodium (Lovenox) 40 mg SC DAILY [facility] Last Admin: 10/12/17 11:31 Dose: Not Given Levetiracetam 750 mg/ Sodium (Chloride) 107.5 mls @ 420 mls/hr IVPB Q12H [facility] Last Admin: 10/12/17 17:50 Dose: Not Given Lorazepam (Ativan) 0.5 mg PO Q8 PRN PRN Reason: Agitation Lorazepam (Ativan) 0.5 mg IVP Q8 PRN PRN Reason: Anxiety Last Admin: 10/11/17 13:58 Dose: 0.5 mg Pantoprazole Sodium (Protonix Ec Tab) 40 mg PO DAILY [facility] Last Admin: 10/12/17 11:31 Dose: Not Given Quetiapine Fumarate (Seroquel) 25 mg PO [facility] Last Admin: 05/24/18 21:04 Dose: 25 mg Rosuvastatin Calcium (Crestor) 20 mg PO HS [facility] Last Admin: 10/11/17 21:04 Dose: Not Given - Labs Labs: 10/10/17 07:22 10/10/17 07:22 PT 12.7 SECONDS (9.7-12.2) H 10/05/17 17:38 INR 1.2 10/05/17 17:38 APTT 29 SECONDS (21-34) 10/05/17 17:38 - Constitutional Appears: Well - Head Exam Head Exam: ATRAUMATIC, NORMAL INSPECTION, NORMOCEPHALIC - Eye Exam Eye Exam: EOMI, Normal appearance, PERRL Pupil Exam: NORMAL ACCOMODATION, PERRL - ENT Exam ENT Exam: Mucous Membranes Moist, Normal Exam - Neck Exam Neck Exam: Full ROM, Normal Inspection. absent: Lymphadenopathy - Respiratory Exam Respiratory Exam: Decreased Breath Sounds - Cardiovascular Exam Cardiovascular Exam: REGULAR RHYTHM, +S1, +S2 - GI/Abdominal Exam GI & Abdominal Exam: Soft, Diminished Bowel Sounds - Rectal Exam Rectal Exam: Deferred Assessment and Plan - Assessment and Plan (Free Text) Plan: Mechanical fall Admit to tele -Unclear etiology as patient is a poor historian/confused (baseline orientation to person only) -Seizure vs vagal mediated -Cardiology reviewed patient's previous cardiac workups, no high risk features -Repeat CT Head shows no intracranial hemorrhage. Age appropriate atrophy and chronic white matter ischemic change -CT Maxillofacial unremarkable -Neurology consulted, Dr. Can help appreciated -Follow up EEG Pt refusing MRI brain Dementia, Alzheimer type -Psychiatry consulted -Seroquel 25mg HS -Ativan 0.5mg IV Q8 prn Seizure -Seizure precaution -Keppra 750mg IV Q12 -Neurology Consulted, Dr. Can help appreciated Leukopenia WBC 4.3 (10/10/17), Afebrile Monitor f/u AM labs Prophylactic measures -Lovenox -Protonix -PT/OT: Home with services Disposition: Pt refusing MRI. DC ok per neuro when medically stable. SW states patient with guardianship hearing on 10/17/17.
[2017-10-13] MEDS: Pantoprazole 40 mg EC Tab PO SCH (09:35)
[2017-10-13] MEDS: Enoxaparin 40 mg Syringe SC SCH (09:36)
[2017-10-13 11:03] LABS: BASO # 0.1 K/uL (0.0-0.2); BASO % 2.3 % (0.0-2.0); EOS # 0.2 K/uL (0.0-0.7); EOS % 4.2 % (0.0-4.0); HEMOGLOBIN 11.5 g/dL (11.0-16.0); MEAN CELL VOLUME 89.5 fL (81.0-99.0); MEAN CORPUSCULAR HGB CONC 33.5 g/dL (33.0-37.0); MEAN PLATELET VOLUME 8.2 fL (7.2-11.7); MONO # 0.5 K/uL (0.0-0.8); MONO % 12.8 % (0.0-10.0); NEUT # 2.3 K/uL (1.8-7.0); NEUT % 56.7 % (50.0-75.0); RBC 3.84 Mil/uL (3.80-5.20); RED CELL DISTRIBUTION WIDTH 15.2 % (11.5-14.5); WHITE BLOOD COUNT 4.1 K/uL (4.8-10.8)
[2017-10-13 11:25] LABS: ALB/GLOB RATIO 1.3 (1.0-2.1); ALBUMIN 3.5 g/dL (3.5-5.0); ALT/SGPT 32 U/L (9-52); AST/SGOT 37 U/L (14-36); BLOOD UREA NITROGEN 20 mg/dL (7-17); CALCIUM 9.2 mg/dl (8.6-10.4); GFR AFRICAN-AMERICAN > 60; GFR NON-AFRICAN AMERICAN > 60
--- NOTE | 2017-10-13 15:45 | CP.PCM.PN ---
Subjective - Date & Time of Evaluation Date of Evaluation: 10/13/17 Time of Evaluation: 10:00 - Subjective Subjective: clinically same Objective - Vital Signs/Intake and Output Vital Signs (last 24 hours): Temp Pulse Resp BP Pulse Ox 98.5 F 67 20 123/67 96 10/13/17 02:39 10/13/17 09:17 10/13/17 09:17 10/13/17 09:17 10/13/17 09:17 Intake and Output: 10/13/17 10/13/17 06:59 18:59 Intake Total 200 Balance 200 - Medications Medications: Current Medications Acetaminophen (Tylenol 325mg Tab) 650 mg PO Q6 PRN PRN Reason: Pain, Mild (1-3) Last Admin: 10/09/17 18:10 Dose: 650 mg Anastrozole (Arimidex 1 Mg Tab) 1 mg PO DAILY [facility] Last Admin: 10/13/17 09:35 Dose: 1 mg Aspirin (Ecotrin) 81 mg PO DAILY [facility] Last Admin: 10/13/17 09:35 Dose: 81 mg Diphenhydramine HCl (Benadryl) 50 mg IVP Q6 PRN PRN Reason: Insomnia IF NPO Diphenhydramine HCl (Benadryl) 50 mg PO Q8 PRN PRN Reason: Insomnia Donepezil HCl (Aricept) 5 mg PO HS [facility] Last Admin: 10/12/17 22:23 Dose: 5 mg Enoxaparin Sodium (Lovenox) 40 mg SC DAILY [facility] Last Admin: 10/13/17 09:36 Dose: 40 mg Levetiracetam 750 mg/ Sodium (Chloride) 107.5 mls @ 420 mls/hr IVPB Q12H [facility] Last Admin: 10/13/17 06:33 Dose: 420 mls/hr Lorazepam (Ativan) 0.5 mg PO Q8 PRN PRN Reason: Agitation Lorazepam (Ativan) 0.5 mg IVP Q8 PRN PRN Reason: Anxiety Last Admin: 10/12/17 18:17 Dose: 0.5 mg Pantoprazole Sodium (Protonix Ec Tab) 40 mg PO DAILY [facility] Last Admin: 10/13/17 09:35 Dose: 40 mg Quetiapine Fumarate (Seroquel) 25 mg PO [facility] Last Admin: 10/12/17 22:23 Dose: 25 mg Rosuvastatin Calcium (Crestor) 20 mg PO HS [facility] Last Admin: 10/12/17 22:23 Dose: 20 mg - Labs Labs: 10/13/17 10:55 10/13/17 10:55 PT 12.7 SECONDS (9.7-12.2) H 10/05/17 17:38 INR 1.2 10/05/17 17:38 APTT 29 SECONDS (21-34) 10/05/17 17:38 - Constitutional Appears: Well - Head Exam Head Exam: ATRAUMATIC, NORMAL INSPECTION, NORMOCEPHALIC - Eye Exam Eye Exam: EOMI, Normal appearance, PERRL Pupil Exam: NORMAL ACCOMODATION, PERRL - ENT Exam ENT Exam: Mucous Membranes Moist, Normal Exam - Neck Exam Neck Exam: Full ROM, Normal Inspection. absent: Lymphadenopathy - Respiratory Exam Respiratory Exam: Decreased Breath Sounds - Cardiovascular Exam Cardiovascular Exam: REGULAR RHYTHM, +S1, +S2 - GI/Abdominal Exam GI & Abdominal Exam: Soft, Diminished Bowel Sounds - Rectal Exam Rectal Exam: Deferred
[2017-10-14] MEDS: Enoxaparin 40 mg Syringe SC SCH (09:20)
[2017-10-14] MEDS: Pantoprazole 40 mg EC Tab PO SCH (09:21)
--- NOTE | 2017-10-14 18:11 | CP.PCM.PN ---
Subjective - Date & Time of Evaluation Date of Evaluation: 10/14/17 Time of Evaluation: 11:00 - Subjective Subjective: clinically same Objective - Vital Signs/Intake and Output Vital Signs (last 24 hours): Temp Pulse Resp BP Pulse Ox 98.2 F 72 18 107/64 98 10/14/17 15:00 10/14/17 15:00 10/14/17 15:00 10/14/17 15:00 10/14/17 15:00 Intake and Output: 10/14/17 10/14/17 06:59 18:59 Intake Total 420 Output Total 1 Balance 420 -1 - Medications Medications: Current Medications Acetaminophen (Tylenol 325mg Tab) 650 mg PO Q6 PRN PRN Reason: Pain, Mild (1-3) Last Admin: 10/09/17 18:10 Dose: 650 mg Anastrozole (Arimidex 1 Mg Tab) 1 mg PO DAILY [facility] Last Admin: 10/14/17 09:18 Dose: Not Given Aspirin (Ecotrin) 81 mg PO DAILY [facility] Last Admin: 10/14/17 15:09 Dose: Not Given Diphenhydramine HCl (Benadryl) 50 mg IVP Q6 PRN PRN Reason: Insomnia IF NPO Last Admin: 10/14/17 09:18 Dose: 50 mg Diphenhydramine HCl (Benadryl) 50 mg PO Q8 PRN PRN Reason: Insomnia Donepezil HCl (Aricept) 5 mg PO HS [facility] Last Admin: 10/13/17 22:46 Dose: 5 mg Enoxaparin Sodium (Lovenox) 40 mg SC DAILY [facility] Last Admin: 10/14/17 09:20 Dose: Not Given Levetiracetam 750 mg/ Sodium (Chloride) 107.5 mls @ 420 mls/hr IVPB Q12H [facility] Last Admin: 10/13/17 18:46 Dose: 420 mls/hr Pantoprazole Sodium (Protonix Ec Tab) 40 mg PO DAILY [facility] Last Admin: 10/14/17 09:21 Dose: Not Given Quetiapine Fumarate (Seroquel) 25 mg PO HS [facility] Last Admin: 10/13/17 22:45 Dose: 25 mg Rosuvastatin Calcium (Crestor) 20 mg PO [facility] Last Admin: 10/13/17 22:46 Dose: 20 mg - Labs Labs: 10/13/17 10:55 05/26/18 10:55 PT 12.7 SECONDS (9.7-12.2) H 10/05/17 17:38 INR 1.2 10/05/17 17:38 APTT 29 SECONDS (21-34) 10/05/17 17:38 - Constitutional Appears: Well - Head Exam Head Exam: ATRAUMATIC, NORMAL INSPECTION, NORMOCEPHALIC - Eye Exam Eye Exam: EOMI, Normal appearance, PERRL Pupil Exam: NORMAL ACCOMODATION, PERRL - ENT Exam ENT Exam: Mucous Membranes Moist, Normal Exam - Neck Exam Neck Exam: Full ROM, Normal Inspection. absent: Lymphadenopathy - Respiratory Exam Respiratory Exam: Decreased Breath Sounds - Cardiovascular Exam Cardiovascular Exam: REGULAR RHYTHM, +S1, +S2 - GI/Abdominal Exam GI & Abdominal Exam: Soft, Diminished Bowel Sounds - Rectal Exam Rectal Exam: Deferred
[2017-10-15] MEDS: Enoxaparin 40 mg Syringe SC SCH (10:04)
[2017-10-15] MEDS: Pantoprazole 40 mg EC Tab PO SCH (10:04)
--- NOTE | 2017-10-15 14:15 | CP.PCM.PN ---
Subjective - Date & Time of Evaluation Date of Evaluation: 10/15/17 Time of Evaluation: 11:00 - Subjective Subjective: clinically same Objective - Vital Signs/Intake and Output Vital Signs (last 24 hours): Temp Pulse Resp BP Pulse Ox 97.3 F L 83 20 128/72 95 10/15/17 10:00 10/15/17 10:00 10/15/17 10:00 10/15/17 10:00 10/15/17 10:00 Intake and Output: 10/15/17 10/15/17 06:59 18:59 Intake Total 0 Output Total 0 Balance 0 - Medications Medications: Current Medications Acetaminophen (Tylenol 325mg Tab) 650 mg PO Q6 PRN PRN Reason: Pain, Mild (1-3) Last Admin: 10/09/17 18:10 Dose: 650 mg Anastrozole (Arimidex 1 Mg Tab) 1 mg PO DAILY [facility] Last Admin: 10/15/17 09:51 Dose: 1 mg Aspirin (Ecotrin) 81 mg PO DAILY [facility] Last Admin: 10/15/17 10:04 Dose: Not Given Diphenhydramine HCl (Benadryl) 50 mg IVP Q6 PRN PRN Reason: Insomnia IF NPO Last Admin: 10/14/17 09:18 Dose: 50 mg Diphenhydramine HCl (Benadryl) 50 mg PO Q8 PRN PRN Reason: Insomnia Donepezil HCl (Aricept) 5 mg PO HS [facility] Last Admin: 10/14/17 21:59 Dose: 5 mg Enoxaparin Sodium (Lovenox) 40 mg SC DAILY [facility] Last Admin: 10/15/17 10:04 Dose: Not Given Levetiracetam 750 mg/ Sodium (Chloride) 107.5 mls @ 420 mls/hr IVPB Q12H [facility] Last Admin: 10/15/17 10:04 Dose: 420 mls/hr Lorazepam (Ativan) 0.5 mg IVP Q8H PRN PRN Reason: Anxiety Pantoprazole Sodium (Protonix Ec Tab) 40 mg PO DAILY [facility] Last Admin: 10/15/17 10:04 Dose: Not Given Quetiapine Fumarate (Seroquel) 25 mg PO HS [facility] Last Admin: 10/14/17 21:59 Dose: 25 mg Rosuvastatin Calcium (Crestor) 20 mg PO HS [facility] Last Admin: 10/14/17 21:59 Dose: 20 mg - Labs Labs: 10/13/17 10:55 10/13/17 10:55 PT 12.7 SECONDS (9.7-12.2) H 10/05/17 17:38 INR 1.2 10/05/17 17:38 APTT 29 SECONDS (21-34) 10/05/17 17:38 - Constitutional Appears: Well - Head Exam Head Exam: ATRAUMATIC, NORMAL INSPECTION, NORMOCEPHALIC - Eye Exam Eye Exam: EOMI, Normal appearance, PERRL Pupil Exam: NORMAL ACCOMODATION, PERRL - ENT Exam ENT Exam: Mucous Membranes Moist, Normal Exam - Neck Exam Neck Exam: Full ROM, Normal Inspection. absent: Lymphadenopathy - Respiratory Exam Respiratory Exam: Decreased Breath Sounds - Cardiovascular Exam Cardiovascular Exam: REGULAR RHYTHM, +S1, +S2 - GI/Abdominal Exam GI & Abdominal Exam: Soft, Diminished Bowel Sounds - Rectal Exam Rectal Exam: Deferred
--- NOTE | 2017-10-16 06:01 | CP.PCM.PN ---
<Jose Howell - Last Filed: 10/16/17 11:17> Subjective - Date & Time of Evaluation Date of Evaluation: 10/16/17 Time of Evaluation: 06:00 - Subjective Subjective: Progress note for Dr. Duran Patient seen and examined at bedside. Nursing reports no acute events overnight. Patient found oriented x 1 - person only. She denies acute complaints this AM. No chest pain, SOB, palpitations, abd pain, N/V but ROS unavailable due to mental status. Nursing reports pt refusing PO meds/labwork. Objective - Vital Signs/Intake and Output Vital Signs (last 24 hours): Temp Pulse Resp BP Pulse Ox 97.3 F L 83 20 128/72 95 10/15/17 10:00 10/15/17 10:00 10/15/17 10:00 10/15/17 10:00 10/15/17 10:00 Intake and Output: 10/15/17 10/16/17 18:59 06:59 Intake Total 1200 245 Balance 1200 245 - Medications Medications: Current Medications Acetaminophen (Tylenol 325mg Tab) 650 mg PO Q6 PRN PRN Reason: Pain, Mild (1-3) Last Admin: 10/09/17 18:10 Dose: 650 mg Anastrozole (Arimidex 1 Mg Tab) 1 mg PO DAILY [facility] Last Admin: 10/15/17 09:51 Dose: 1 mg Aspirin (Ecotrin) 81 mg PO DAILY [facility] Last Admin: 10/15/17 10:04 Dose: Not Given Diphenhydramine HCl (Benadryl) 50 mg IVP Q6 PRN PRN Reason: Insomnia IF NPO Last Admin: 10/14/17 09:18 Dose: 50 mg Diphenhydramine HCl (Benadryl) 50 mg PO Q8 PRN PRN Reason: Insomnia Donepezil HCl (Aricept) 5 mg PO HS [facility] Last Admin: 10/15/17 21:59 Dose: Not Given Enoxaparin Sodium (Lovenox) 40 mg SC DAILY [facility] Last Admin: 10/15/17 10:04 Dose: Not Given Levetiracetam (Keppra) 750 mg PO BID [facility] Last Admin: 10/15/17 21:59 Dose: Not Given Lorazepam (Ativan) 0.5 mg IVP Q8H PRN PRN Reason: Anxiety Pantoprazole Sodium (Protonix Ec Tab) 40 mg PO DAILY [facility] Last Admin: 10/15/17 10:04 Dose: Not Given Quetiapine Fumarate (Seroquel) 25 mg PO HS [facility] Last Admin: 10/15/17 21:59 Dose: Not Given Rosuvastatin Calcium (Crestor) 20 mg PO HS [facility] Last Admin: 10/15/17 21:59 Dose: Not Given - Labs Labs: 10/13/17 10:55 10/13/17 10:55 PT 12.7 SECONDS (9.7-12.2) H 10/05/17 17:38 INR 1.2 10/05/17 17:38 APTT 29 SECONDS (21-34) 10/05/17 17:38 - Additional Findings Additional findings: - Constitutional Appears: No Acute Distress - Head Exam Head Exam: NORMAL INSPECTION, NORMOCEPHALIC. absent: ATRAUMATIC (L. periorbital bruising improving) - Eye Exam Eye Exam: EOMI, Normal appearance, PERRL - ENT Exam ENT Exam: Mucous Membranes Moist, Normal Oropharynx - Neck Exam Neck exam: Positive for: Full Rom, Normal Inspection. Negative for: Tenderness - Respiratory Exam Respiratory Exam: Clear to Auscultation Bilateral. absent: Rhonchi, Wheezes - Cardiovascular Exam Cardiovascular Exam: REGULAR RHYTHM, +S1, +S2. absent: Diastolic murmur, Gallop , Rubs, Systolic Murmur - GI/Abdominal Exam GI & Abdominal Exam: Normal Bowel Sounds, Soft. absent: Tenderness - Extremities Exam Extremities exam: Positive for: normal inspection, pedal pulses present. Negative for: calf tenderness, pedal edema - Neurological Exam Neurological exam: Alert - Skin Skin Exam: Normal Color, Warm Assessment and Plan - Assessment and Plan (Free Text) Plan: Mechanical fall Admit to tele -Unclear etiology as patient is a poor historian/confused (baseline orientation to person only) -Seizure vs vagal mediated -Cardiology reviewed patient's previous cardiac workups, no high risk features -Repeat CT Head shows no intracranial hemorrhage. Age appropriate atrophy and chronic white matter ischemic change -CT Maxillofacial unremarkable -Neurology consulted, Dr. Juan José goncalves appreciated -Follow up EEG Pt refusing MRI brain Dementia, Alzheimer type -Psychiatry consulted -Seroquel 25mg HS -Ativan 0.5mg IV Q8 prn Seizure -Seizure precaution -Keppra 750mg IV Q12 -Neurology Consulted, Dr. Can help appreciated Leukopenia WBC 4.1 (10/13/17- last labs), Afebrile Patient has been refusing labs Monitor Prophylactic measures -Lovenox -Protonix -PT/OT: Home with services Disposition: Pt refusing MRI, PO meds, and labs. DC ok per neuro when medically stable. states patient with guardianship hearing on 10/17/17. Case discussed with attending physician All management per Dr. Duran <Ely Duran S - Last Filed: 10/18/17 00:52> Objective - Vital Signs/Intake and Output Vital Signs (last 24 hours): Temp Pulse Resp BP Pulse Ox 98.2 F 92 H 20 99/55 L 99 10/17/17 15:49 10/17/17 15:49 10/17/17 15:49 10/17/17 15:49 10/17/17 15:49 Intake and Output: 10/17/17 10/18/17 18:59 06:59 Intake Total 600 Output Total 5 Balance 595 - Medications Medications: Current Medications Acetaminophen (Tylenol 325mg Tab) 650 mg PO Q6 PRN PRN Reason: Pain, Mild (1-3) Last Admin: 10/16/17 20:35 Dose: 650 mg Anastrozole (Arimidex 1 Mg Tab) 1 mg PO DAILY [facility] Last Admin: 10/17/17 10:33 Dose: 1 mg Aspirin (Ecotrin) 81 mg PO DAILY [facility] Last Admin: 10/17/17 11:35 Dose: Not Given Diphenhydramine HCl (Benadryl) 50 mg IVP Q6 PRN PRN Reason: Insomnia IF NPO Last Admin: 10/14/17 09:18 Dose: 50 mg Diphenhydramine HCl (Benadryl) 50 mg PO Q8 PRN PRN Reason: Insomnia Last Admin: 10/16/17 20:35 Dose: 50 mg Donepezil HCl (Aricept) 5 mg PO HS [facility] Last Admin: 10/17/17 22:12 Dose: Not Given Levetiracetam (Keppra) 750 mg PO BID [facility] Last Admin: 10/17/17 17:40 Dose: 750 mg Lorazepam (Ativan) 0.5 mg IVP Q8H PRN PRN Reason: Anxiety Pantoprazole Sodium (Protonix Ec Tab) 40 mg PO DAILY [facility] Last Admin: 10/17/17 11:35 Dose: Not Given Quetiapine Fumarate (Seroquel) 25 mg PO HS [facility] Last Admin: 10/17/17 22:13 Dose: Not Given Rosuvastatin Calcium (Crestor) 20 mg PO HS [facility] Last Admin: 10/17/17 22:12 Dose: Not Given - Labs Labs: 10/17/17 06:26 10/17/17 06:26 PT 12.7 SECONDS (9.7-12.2) H 10/05/17 17:38 INR 1.2 10/05/17 17:38 APTT 29 SECONDS (21-34) 10/05/17 17:38 Attending/Attestation - Attestation I have personally seen and examined this patient.: Yes I have fully participated in the care of the patient.: Yes I have reviewed all pertinent clinical information, including history, physical exam and plan: Yes
[2017-10-16] MEDS: Pantoprazole 40 mg EC Tab PO SCH (09:32)
[2017-10-16] MEDS: Enoxaparin 40 mg Syringe SC SCH (09:32)
--- NOTE | 2017-10-16 15:21 | CP.PCM.PN ---
Subjective - Date & Time of Evaluation Date of Evaluation: 10/16/17 Time of Evaluation: 10:20 - Subjective Subjective: clinically same Objective - Vital Signs/Intake and Output Vital Signs (last 24 hours): Temp Pulse Resp BP Pulse Ox 97.5 F L 86 20 110/66 96 10/16/17 08:00 10/16/17 08:00 10/16/17 08:00 10/16/17 08:00 10/16/17 08:00 Intake and Output: 10/16/17 10/16/17 06:59 18:59 Intake Total 245 400 Balance 245 400 - Medications Medications: Current Medications Acetaminophen (Tylenol 325mg Tab) 650 mg PO Q6 PRN PRN Reason: Pain, Mild (1-3) Last Admin: 10/09/17 18:10 Dose: 650 mg Anastrozole (Arimidex 1 Mg Tab) 1 mg PO DAILY [facility] Last Admin: 10/16/17 09:31 Dose: 1 mg Aspirin (Ecotrin) 81 mg PO DAILY [facility] Last Admin: 10/16/17 09:31 Dose: Not Given Diphenhydramine HCl (Benadryl) 50 mg IVP Q6 PRN PRN Reason: Insomnia IF NPO Last Admin: 10/14/17 09:18 Dose: 50 mg Diphenhydramine HCl (Benadryl) 50 mg PO Q8 PRN PRN Reason: Insomnia Donepezil HCl (Aricept) 5 mg PO HS [facility] Last Admin: 10/15/17 21:59 Dose: Not Given Levetiracetam (Keppra) 750 mg PO BID [facility] Last Admin: 10/16/17 09:36 Dose: Not Given Lorazepam (Ativan) 0.5 mg IVP Q8H PRN PRN Reason: Anxiety Pantoprazole Sodium (Protonix Ec Tab) 40 mg PO DAILY [facility] Last Admin: 10/16/17 09:32 Dose: Not Given Quetiapine Fumarate (Seroquel) 25 mg PO HS [facility] Last Admin: 10/15/17 21:59 Dose: Not Given Rosuvastatin Calcium (Crestor) 20 mg PO HS [facility] Last Admin: 10/15/17 21:59 Dose: Not Given - Labs Labs: 10/13/17 10:55 10/13/17 10:55 PT 12.7 SECONDS (9.7-12.2) H 10/05/17 17:38 INR 1.2 10/05/17 17:38 APTT 29 SECONDS (21-34) 10/05/17 17:38 - Constitutional Appears: Well - Head Exam Head Exam: ATRAUMATIC, NORMAL INSPECTION, NORMOCEPHALIC - Eye Exam Eye Exam: EOMI, Normal appearance, PERRL Pupil Exam: NORMAL ACCOMODATION, PERRL - ENT Exam ENT Exam: Mucous Membranes Moist, Normal Exam - Neck Exam Neck Exam: Full ROM, Normal Inspection. absent: Lymphadenopathy - Respiratory Exam Respiratory Exam: Decreased Breath Sounds - Cardiovascular Exam Cardiovascular Exam: REGULAR RHYTHM, +S1, +S2 - GI/Abdominal Exam GI & Abdominal Exam: Soft, Diminished Bowel Sounds - Rectal Exam Rectal Exam: Deferred Assessment and Plan - Assessment and Plan (Free Text) Plan: Mechanical fall Admit to tele -Unclear etiology as patient is a poor historian/confused (baseline orientation to person only) -Seizure vs vagal mediated -Cardiology reviewed patient's previous cardiac workups, no high risk features -Repeat CT Head shows no intracranial hemorrhage. Age appropriate atrophy and chronic white matter ischemic change -CT Maxillofacial unremarkable -Neurology consulted, Dr. Can help appreciated -Follow up EEG Pt refusing MRI brain Dementia, Alzheimer type -Psychiatry consulted -Seroquel 25mg HS -Ativan 0.5mg IV Q8 prn Seizure -Seizure precaution -Keppra 750mg IV Q12 -Neurology Consulted, Dr. Can help appreciated Leukopenia WBC 4.1 (10/13/17- last labs), Afebrile Patient has been refusing labs Monitor Prophylactic measures -Lovenox -Protonix -PT/OT: Home with services Disposition: Pt refusing MRI, PO meds, and labs. DC ok per neuro when medically stable. states patient with guardianship hearing on 10/17/17.
--- NOTE | 2017-10-17 06:17 | CP.PCM.PN ---
<Jose Howell - Last Filed: 10/17/17 11:50> Subjective - Date & Time of Evaluation Date of Evaluation: 10/17/17 Time of Evaluation: 06:16 - Subjective Subjective: Progress note for Dr. Duran Patient seen and examined at bedside. Nursing reports patient refuses medication /labs, but accepted most last night. Patient found oriented x 1 - person only. She denies acute complaints: no chest pain, SOB, palpitations, abd pain, N/V but ROS unavailable due to mental status. Nursing reports pt often refuses meds/ labs. Objective - Vital Signs/Intake and Output Vital Signs (last 24 hours): Temp Pulse Resp BP Pulse Ox 98.4 F 76 20 105/63 95 10/16/17 23:35 10/16/17 23:35 10/16/17 23:35 10/16/17 23:35 10/16/17 23:35 Intake and Output: 10/16/17 10/17/17 18:59 06:59 Intake Total 400 Balance 400 - Medications Medications: Current Medications Acetaminophen (Tylenol 325mg Tab) 650 mg PO Q6 PRN PRN Reason: Pain, Mild (1-3) Last Admin: 10/16/17 20:35 Dose: 650 mg Anastrozole (Arimidex 1 Mg Tab) 1 mg PO DAILY [facility] Last Admin: 10/16/17 09:31 Dose: 1 mg Aspirin (Ecotrin) 81 mg PO DAILY [facility] Last Admin: 10/16/17 09:31 Dose: Not Given Diphenhydramine HCl (Benadryl) 50 mg IVP Q6 PRN PRN Reason: Insomnia IF NPO Last Admin: 10/14/17 09:18 Dose: 50 mg Diphenhydramine HCl (Benadryl) 50 mg PO Q8 PRN PRN Reason: Insomnia Last Admin: 10/16/17 20:35 Dose: 50 mg Donepezil HCl (Aricept) 5 mg PO HS [facility] Last Admin: 10/16/17 22:20 Dose: 5 mg Levetiracetam (Keppra) 750 mg PO BID [facility] Last Admin: 10/16/17 17:35 Dose: 750 mg Lorazepam (Ativan) 0.5 mg IVP Q8H PRN PRN Reason: Anxiety Pantoprazole Sodium (Protonix Ec Tab) 40 mg PO DAILY [facility] Last Admin: 10/16/17 09:32 Dose: Not Given Quetiapine Fumarate (Seroquel) 25 mg PO HS [facility] Last Admin: 10/16/17 22:21 Dose: 25 mg Rosuvastatin Calcium (Crestor) 20 mg PO HS [facility] Last Admin: 10/16/17 22:21 Dose: 20 mg - Labs Labs: 10/13/17 10:55 10/13/17 10:55 PT 12.7 SECONDS (9.7-12.2) H 10/05/17 17:38 INR 1.2 10/05/17 17:38 APTT 29 SECONDS (21-34) 10/05/17 17:38 - Additional Findings Additional findings: - Constitutional Appears: No Acute Distress - Head Exam Head Exam: NORMAL INSPECTION, NORMOCEPHALIC. absent: ATRAUMATIC (L. periorbital bruising improving) - Eye Exam Eye Exam: EOMI, Normal appearance, PERRL - ENT Exam ENT Exam: Mucous Membranes Moist, Normal Oropharynx - Neck Exam Neck exam: Positive for: Full Rom, Normal Inspection. Negative for: Tenderness - Respiratory Exam Respiratory Exam: Clear to Auscultation Bilateral. absent: Rhonchi, Wheezes - Cardiovascular Exam Cardiovascular Exam: REGULAR RHYTHM, +S1, +S2. absent: Diastolic murmur, Gallop , Rubs, Systolic Murmur - GI/Abdominal Exam GI & Abdominal Exam: Normal Bowel Sounds, Soft. absent: Tenderness - Extremities Exam Extremities exam: Positive for: normal inspection, pedal pulses present. Negative for: calf tenderness, pedal edema - Neurological Exam Neurological exam: Alert - Skin Skin Exam: Normal Color, Warm Assessment and Plan - Assessment and Plan (Free Text) Plan: Mechanical fall Admit to tele -Unclear etiology as patient is a poor historian/confused (baseline orientation to person only) -Seizure vs vagal mediated -Cardiology reviewed patient's previous cardiac workups, no high risk features -Repeat CT Head shows no intracranial hemorrhage. Age appropriate atrophy and chronic white matter ischemic change -CT Maxillofacial unremarkable -Neurology consulted, Dr. Can help appreciated -Follow up EEG Pt refusing MRI brain Dementia, Alzheimer type Psychiatry consulted Seroquel 25mg HS Ativan 0.5mg IV Q8 prn Aricept 5mg PO HS Crestor 20mg PO HS Seizure Seizure precaution Keppra 750mg PO Q12 Neurology Consulted, Dr. Can help appreciated Leukopenia Resolved Monitor Hx of Breast CA Anastrozole 1mg PO Daily Insomnia Benadryl 20mg PO HS PRN Prophylactic measures -Lovenox -Protonix 40mg PO daily -PT/OT: Home with services Disposition: Pt refusing MRI, PO meds, and labs. DC ok per neuro when medically stable. SW states patient with guardianship hearing, today, 10/17/17. Case discussed with attending physician All management per Dr. Duran <Ely Duran S - Last Filed: 10/18/17 00:34> Objective - Vital Signs/Intake and Output Vital Signs (last 24 hours): Temp Pulse Resp BP Pulse Ox 98.2 F 92 H 20 99/55 L 99 10/17/17 15:49 10/17/17 15:49 10/17/17 15:49 10/17/17 15:49 10/17/17 15:49 Intake and Output: 10/17/17 10/18/17 18:59 06:59 Intake Total 600 Output Total 5 Balance 595 - Medications Medications: Current Medications Acetaminophen (Tylenol 325mg Tab) 650 mg PO Q6 PRN PRN Reason: Pain, Mild (1-3) Last Admin: 10/16/17 20:35 Dose: 650 mg Anastrozole (Arimidex 1 Mg Tab) 1 mg PO DAILY [facility] Last Admin: 10/17/17 10:33 Dose: 1 mg Aspirin (Ecotrin) 81 mg PO DAILY [facility] Last Admin: 10/17/17 11:35 Dose: Not Given Diphenhydramine HCl (Benadryl) 50 mg IVP Q6 PRN PRN Reason: Insomnia IF NPO Last Admin: 10/14/17 09:18 Dose: 50 mg Diphenhydramine HCl (Benadryl) 50 mg PO Q8 PRN PRN Reason: Insomnia Last Admin: 10/16/17 20:35 Dose: 50 mg Donepezil HCl (Aricept) 5 mg PO HS [facility] Last Admin: 10/17/17 22:12 Dose: Not Given Levetiracetam (Keppra) 750 mg PO BID [facility] Last Admin: 10/17/17 17:40 Dose: 750 mg Lorazepam (Ativan) 0.5 mg IVP Q8H PRN PRN Reason: Anxiety Pantoprazole Sodium (Protonix Ec Tab) 40 mg PO DAILY [facility] Last Admin: 10/17/17 11:35 Dose: Not Given Quetiapine Fumarate (Seroquel) 25 mg PO HS [facility] Last Admin: 10/17/17 22:13 Dose: Not Given Rosuvastatin Calcium (Crestor) 20 mg PO HS [facility] Last Admin: 10/17/17 22:12 Dose: Not Given - Labs Labs: 10/17/17 06:26 10/17/17 06:26 PT 12.7 SECONDS (9.7-12.2) H 10/05/17 17:38 INR 1.2 10/05/17 17:38 APTT 29 SECONDS (21-34) 10/05/17 17:38 Attending/Attestation - Attestation I have personally seen and examined this patient.: Yes I have fully participated in the care of the patient.: Yes I have reviewed all pertinent clinical information, including history, physical exam and plan: Yes
[2017-10-17 06:37] LABS: BASO # 0.1 K/uL (0.0-0.2); BASO % 1.2 % (0.0-2.0); EOS # 0.2 K/uL (0.0-0.7); EOS % 3.6 % (0.0-4.0); LYMPH # 1.4 K/uL (1.0-4.3); LYMPH % 26.5 % (20.0-40.0); MEAN CORPUSCULAR HEMOGLOBIN 30.5 pg (27.0-31.0); MEAN CORPUSCULAR HGB CONC 34.3 g/dL (33.0-37.0); MEAN PLATELET VOLUME 8.4 fL (7.2-11.7); MONO # 0.6 K/uL (0.0-0.8); MONO % 11.5 % (0.0-10.0); NEUT % 57.2 % (50.0-75.0); NRBC % 0.1 % (0.0-2.0); RBC 3.62 Mil/uL (3.80-5.20); RED CELL DISTRIBUTION WIDTH 14.8 % (11.5-14.5); WHITE BLOOD COUNT 5.3 K/uL (4.8-10.8)
[2017-10-17 06:53] LABS: ALBUMIN 3.4 g/dL (3.5-5.0); BLOOD UREA NITROGEN 20 mg/dL (7-17); CALCIUM 8.8 mg/dl (8.6-10.4)
[2017-10-17 07:16] LABS: ALB/GLOB RATIO 1.5 (1.0-2.1); ALT/SGPT 27 U/L (9-52); AST/SGOT 41 U/L (14-36); GFR AFRICAN-AMERICAN > 60; GFR NON-AFRICAN AMERICAN > 60
[2017-10-17] MEDS: Pantoprazole 40 mg EC Tab PO SCH (11:35)
[2017-10-17] MEDS ORDERED: levETIRAcetam 100 mg/ml (5ml) Oral Syringe PO ONE (18:00)
--- NOTE | 2017-10-17 19:06 | CP.PCM.PN ---
Subjective - Date & Time of Evaluation Date of Evaluation: 10/17/17 Time of Evaluation: 11:20 - Subjective Subjective: clinically same Objective - Vital Signs/Intake and Output Vital Signs (last 24 hours): Temp Pulse Resp BP Pulse Ox 98.2 F 92 H 20 99/55 L 99 10/17/17 15:49 10/17/17 15:49 10/17/17 15:49 10/17/17 15:49 10/17/17 15:49 Intake and Output: 10/17/17 10/18/17 18:59 06:59 Intake Total 600 Output Total 5 Balance 595 - Medications Medications: Current Medications Acetaminophen (Tylenol 325mg Tab) 650 mg PO Q6 PRN PRN Reason: Pain, Mild (1-3) Last Admin: 10/16/17 20:35 Dose: 650 mg Anastrozole (Arimidex 1 Mg Tab) 1 mg PO DAILY [facility] Last Admin: 10/17/17 10:33 Dose: 1 mg Aspirin (Ecotrin) 81 mg PO DAILY [facility] Last Admin: 10/17/17 11:35 Dose: Not Given Diphenhydramine HCl (Benadryl) 50 mg IVP Q6 PRN PRN Reason: Insomnia IF NPO Last Admin: 10/14/17 09:18 Dose: 50 mg Diphenhydramine HCl (Benadryl) 50 mg PO Q8 PRN PRN Reason: Insomnia Last Admin: 10/16/17 20:35 Dose: 50 mg Donepezil HCl (Aricept) 5 mg PO HS [facility] Last Admin: 10/16/17 22:20 Dose: 5 mg Levetiracetam (Keppra) 750 mg PO BID [facility] Last Admin: 10/17/17 17:40 Dose: 750 mg Lorazepam (Ativan) 0.5 mg IVP Q8H PRN PRN Reason: Anxiety Pantoprazole Sodium (Protonix Ec Tab) 40 mg PO DAILY [facility] Last Admin: 10/17/17 11:35 Dose: Not Given Quetiapine Fumarate (Seroquel) 25 mg PO HS [facility] Last Admin: 10/16/17 22:21 Dose: 25 mg Rosuvastatin Calcium (Crestor) 20 mg PO HS [facility] Last Admin: 10/16/17 22:21 Dose: 20 mg - Labs Labs: 10/17/17 06:26 10/17/17 06:26 PT 12.7 SECONDS (9.7-12.2) H 10/05/17 17:38 INR 1.2 10/05/17 17:38 APTT 29 SECONDS (21-34) 10/05/17 17:38 - Constitutional Appears: Well - Head Exam Head Exam: ATRAUMATIC, NORMAL INSPECTION, NORMOCEPHALIC - Eye Exam Eye Exam: EOMI, Normal appearance, PERRL Pupil Exam: NORMAL ACCOMODATION, PERRL - ENT Exam ENT Exam: Mucous Membranes Moist, Normal Exam - Neck Exam Neck Exam: Full ROM, Normal Inspection. absent: Lymphadenopathy - Respiratory Exam Respiratory Exam: Decreased Breath Sounds - Cardiovascular Exam Cardiovascular Exam: REGULAR RHYTHM, +S1, +S2 - GI/Abdominal Exam GI & Abdominal Exam: Soft, Diminished Bowel Sounds - Rectal Exam Rectal Exam: Deferred Assessment and Plan - Assessment and Plan (Free Text) Plan: Mechanical fall Admit to tele -Unclear etiology as patient is a poor historian/confused (baseline orientation to person only) -Seizure vs vagal mediated -Cardiology reviewed patient's previous cardiac workups, no high risk features -Repeat CT Head shows no intracranial hemorrhage. Age appropriate atrophy and chronic white matter ischemic change -CT Maxillofacial unremarkable -Neurology consulted, Dr. Can help appreciated -Follow up EEG Pt refusing MRI brain Dementia, Alzheimer type Psychiatry consulted Seroquel 25mg HS Ativan 0.5mg IV Q8 prn Aricept 5mg PO HS Crestor 20mg PO HS Seizure Seizure precaution Keppra 750mg PO Q12 Neurology Consulted, Dr. Can help appreciated Leukopenia Resolved Monitor Hx of Breast CA Anastrozole 1mg PO Daily Insomnia Benadryl 20mg PO HS PRN Prophylactic measures -Lovenox -Protonix 40mg PO daily -PT/OT: Home with services Disposition: Pt refusing MRI, PO meds, and labs. DC ok per neuro when medically stable. SW states patient with guardianship hearing, today, 10/17/17.
--- NOTE | 2017-10-18 10:30 | CP.PCM.PN ---
Subjective - Date & Time of Evaluation Date of Evaluation: 10/18/17 Time of Evaluation: 10:29 - Subjective Subjective: Progress note for Dr. Duran Patient seen and examined at bedside. Nursing reports patient refuses medications once again. Patient is orientated to person only. She denies fever, chill, shortness of breath, chest pain, palpitations, abdominal pain. Unable to obtain detailed due to mental status. Objective - Vital Signs/Intake and Output Vital Signs (last 24 hours): Temp Pulse Resp BP Pulse Ox 98.5 F 68 18 122/73 99 10/18/17 08:50 10/18/17 08:50 10/18/17 08:50 10/18/17 08:50 10/18/17 09:13 Intake and Output: 10/18/17 10/18/17 06:59 18:59 Intake Total 300 Balance 300 - Medications Medications: Current Medications Acetaminophen (Tylenol 325mg Tab) 650 mg PO Q6 PRN PRN Reason: Pain, Mild (1-3) Last Admin: 10/16/17 20:35 Dose: 650 mg Anastrozole (Arimidex 1 Mg Tab) 1 mg PO DAILY [facility] Last Admin: 10/18/17 10:26 Dose: Not Given Aspirin (Ecotrin) 81 mg PO DAILY [facility] Last Admin: 10/17/17 11:35 Dose: Not Given Diphenhydramine HCl (Benadryl) 50 mg IVP Q6 PRN PRN Reason: Insomnia IF NPO Last Admin: 10/14/17 09:18 Dose: 50 mg Diphenhydramine HCl (Benadryl) 50 mg PO Q8 PRN PRN Reason: Insomnia Last Admin: 10/16/17 20:35 Dose: 50 mg Donepezil HCl (Aricept) 5 mg PO HS [facility] Last Admin: 10/17/17 22:12 Dose: Not Given Levetiracetam (Keppra) 750 mg PO BID [facility] Last Admin: 10/17/17 17:40 Dose: 750 mg Lorazepam (Ativan) 0.5 mg IVP Q8H PRN PRN Reason: Anxiety Pantoprazole Sodium (Protonix Ec Tab) 40 mg PO DAILY [facility] Last Admin: 10/17/17 11:35 Dose: Not Given Quetiapine Fumarate (Seroquel) 25 mg PO HS [facility] Last Admin: 10/17/17 22:13 Dose: Not Given Rosuvastatin Calcium (Crestor) 20 mg PO HS [facility] Last Admin: 10/17/17 22:12 Dose: Not Given - Labs Labs: 10/17/17 06:26 10/17/17 06:26 PT 12.7 SECONDS (9.7-12.2) H 10/05/17 17:38 INR 1.2 10/05/17 17:38 APTT 29 SECONDS (21-34) 10/05/17 17:38 - Additional Findings Additional findings: - Constitutional Appears: No Acute Distress - Head Exam Head Exam: NORMAL INSPECTION, NORMOCEPHALIC. absent: ATRAUMATIC (L. periorbital bruising improving) - Eye Exam Eye Exam: EOMI, Normal appearance, PERRL - ENT Exam ENT Exam: Mucous Membranes Moist, Normal Oropharynx - Neck Exam Neck exam: Positive for: Full Rom, Normal Inspection. Negative for: Tenderness - Respiratory Exam Respiratory Exam: Clear to Auscultation Bilateral. absent: Rhonchi, Wheezes - Cardiovascular Exam Cardiovascular Exam: REGULAR RHYTHM, +S1, +S2. absent: Diastolic murmur, Gallop , Rubs, Systolic Murmur - GI/Abdominal Exam GI & Abdominal Exam: Normal Bowel Sounds, Soft. absent: Tenderness - Extremities Exam Extremities exam: Positive for: normal inspection, pedal pulses present. Negative for: calf tenderness, pedal edema - Neurological Exam Neurological exam: Alert - Skin Skin Exam: Normal Color, Warm Assessment and Plan - Assessment and Plan (Free Text) Assessment: Mechanical fall -Unclear etiology as patient is a poor historian/confused (baseline orientation to person only) -Seizure vs vagal mediated -Cardiology reviewed patient's previous cardiac workups, no high risk features -Repeat CT Head shows no intracranial hemorrhage. Age appropriate atrophy and chronic white matter ischemic change -CT Maxillofacial unremarkable -Neurology consulted, Dr. Can help appreciated Pt refusing MRI brain Dementia, Alzheimer type Psychiatry consulted Seroquel 25mg HS Ativan 0.5mg IV Q8 prn Aricept 5mg PO HS Crestor 20mg PO HS Seizure Seizure precaution Keppra 750mg PO Q12 Neurology Consulted, Dr. Can help appreciated Leukopenia Resolved Monitor Hx of Breast CA Anastrozole 1mg PO Daily Insomnia Benadryl 20mg PO HS PRN Prophylactic measures -Lovenox -Protonix 40mg PO daily -PT/OT: Home with services Disposition: Pt refusing MRI, PO meds, and labs. DC ok per neuro when medically stable. Case management states patient's guardianship hearing was postponed yesterday to today, 10/18/17. Case discussed with attending physician All management per Dr. Duran
[2017-10-18] MEDS: Pantoprazole 40 mg EC Tab PO SCH (10:31)
[2017-10-18] MEDS: levETIRAcetam 100 mg/ml (5ml) Oral Syringe PO SCH ×2 (14:23→19:00)
--- NOTE | 2017-10-18 18:24 | CP.PCM.PN ---
Subjective - Date & Time of Evaluation Date of Evaluation: 10/18/17 Time of Evaluation: 09:00 - Subjective Subjective: clinically same Objective - Vital Signs/Intake and Output Vital Signs (last 24 hours): Temp Pulse Resp BP Pulse Ox 98.1 F 74 18 96/58 L 99 10/18/17 15:59 10/18/17 15:59 10/18/17 15:59 10/18/17 15:59 10/18/17 15:59 Intake and Output: 10/18/17 10/18/17 06:59 18:59 Intake Total 300 Balance 300 - Medications Medications: Current Medications Acetaminophen (Tylenol 325mg Tab) 650 mg PO Q6 PRN PRN Reason: Pain, Mild (1-3) Last Admin: 10/16/17 20:35 Dose: 650 mg Anastrozole (Arimidex 1 Mg Tab) 1 mg PO DAILY [facility] Last Admin: 10/18/17 10:26 Dose: Not Given Aspirin (Ecotrin) 81 mg PO DAILY [facility] Last Admin: 10/18/17 10:31 Dose: Not Given Diphenhydramine HCl (Benadryl) 50 mg IVP Q6 PRN PRN Reason: Insomnia IF NPO Last Admin: 10/14/17 09:18 Dose: 50 mg Diphenhydramine HCl (Benadryl) 50 mg PO Q8 PRN PRN Reason: Insomnia Last Admin: 10/16/17 20:35 Dose: 50 mg Donepezil HCl (Aricept) 5 mg PO HS [facility] Last Admin: 10/17/17 22:12 Dose: Not Given Levetiracetam (Keppra) 750 mg PO BID [facility] Last Admin: 10/17/17 17:40 Dose: 750 mg Levetiracetam (Keppra) 750 mg PO BID [facility] Last Admin: 10/18/17 14:23 Dose: Not Given Lorazepam (Ativan) 0.5 mg IVP Q8H PRN PRN Reason: Anxiety Pantoprazole Sodium (Protonix Ec Tab) 40 mg PO DAILY [facility] Last Admin: 10/18/17 10:31 Dose: Not Given Quetiapine Fumarate (Seroquel) 25 mg PO [facility] Last Admin: 10/17/17 22:13 Dose: Not Given Rosuvastatin Calcium (Crestor) 20 mg PO [facility] Last Admin: 10/17/17 22:12 Dose: Not Given - Labs Labs: 10/17/17 06:26 10/17/17 06:26 PT 12.7 SECONDS (9.7-12.2) H 10/05/17 17:38 INR 1.2 10/05/17 17:38 APTT 29 SECONDS (21-34) 10/05/17 17:38 - Constitutional Appears: Well - Head Exam Head Exam: ATRAUMATIC, NORMAL INSPECTION, NORMOCEPHALIC - Eye Exam Eye Exam: EOMI, Normal appearance, PERRL Pupil Exam: NORMAL ACCOMODATION, PERRL - ENT Exam ENT Exam: Mucous Membranes Moist, Normal Exam - Neck Exam Neck Exam: Full ROM, Normal Inspection. absent: Lymphadenopathy - Respiratory Exam Respiratory Exam: Decreased Breath Sounds - Cardiovascular Exam Cardiovascular Exam: REGULAR RHYTHM, +S1, +S2 - GI/Abdominal Exam GI & Abdominal Exam: Soft, Diminished Bowel Sounds - Rectal Exam Rectal Exam: Deferred
[2017-10-19] MEDS: levETIRAcetam 100 mg/ml (5ml) Oral Syringe PO SCH ×2 (11:12→17:20)
[2017-10-19] MEDS: Pantoprazole 40 mg EC Tab PO SCH (11:13)
--- NOTE | 2017-10-19 11:17 | CP.PCM.PN ---
Subjective - Date & Time of Evaluation Date of Evaluation: 10/19/17 Time of Evaluation: 11:17 - Subjective Subjective: Progress note for Dr. Duran Patient seen and examined at bedside. Patient continues to refuse medications overnight. She denies fever, chill, shortness of breath, chest pain, palpitations, abdominal pain. Unable to obtain detailed due to mental status. Objective - Vital Signs/Intake and Output Vital Signs (last 24 hours): Temp Pulse Resp BP Pulse Ox 98.3 F 73 20 130/64 97 10/18/17 23:10 10/18/17 23:10 10/18/17 23:10 10/18/17 23:10 10/18/17 23:10 Intake and Output: 10/19/17 10/19/17 06:59 18:59 Intake Total 375 Balance 375 - Medications Medications: Current Medications Acetaminophen (Tylenol 325mg Tab) 650 mg PO Q6 PRN PRN Reason: Pain, Mild (1-3) Last Admin: 10/16/17 20:35 Dose: 650 mg Anastrozole (Arimidex 1 Mg Tab) 1 mg PO DAILY [facility] Last Admin: 10/19/17 11:12 Dose: Not Given Aspirin (Ecotrin) 81 mg PO DAILY [facility] Last Admin: 10/19/17 11:12 Dose: Not Given Diphenhydramine HCl (Benadryl) 50 mg IVP Q6 PRN PRN Reason: Insomnia IF NPO Last Admin: 10/14/17 09:18 Dose: 50 mg Diphenhydramine HCl (Benadryl) 50 mg PO Q8 PRN PRN Reason: Insomnia Last Admin: 10/16/17 20:35 Dose: 50 mg Donepezil HCl (Aricept) 5 mg PO HS [facility] Last Admin: 10/18/17 22:23 Dose: Not Given Levetiracetam (Keppra) 750 mg PO BID [facility] Last Admin: 10/17/17 17:40 Dose: 750 mg Levetiracetam (Keppra) 750 mg PO BID [facility] Last Admin: 10/19/17 11:12 Dose: Not Given Lorazepam (Ativan) 0.5 mg IVP Q8H PRN PRN Reason: Anxiety Pantoprazole Sodium (Protonix Ec Tab) 40 mg PO DAILY [facility] Last Admin: 10/19/17 11:13 Dose: Not Given Quetiapine Fumarate (Seroquel) 25 mg PO HS [facility] Last Admin: 10/18/17 22:24 Dose: Not Given Rosuvastatin Calcium (Crestor) 20 mg PO HS [facility] Last Admin: 10/18/17 22:23 Dose: Not Given - Labs Labs: 10/17/17 06:26 10/17/17 06:26 PT 12.7 SECONDS (9.7-12.2) H 10/05/17 17:38 INR 1.2 10/05/17 17:38 APTT 29 SECONDS (21-34) 10/05/17 17:38 - Additional Findings Additional findings: - Constitutional Appears: No Acute Distress - Head Exam Head Exam: NORMAL INSPECTION, NORMOCEPHALIC. absent: ATRAUMATIC (L. periorbital bruising improving) - Eye Exam Eye Exam: EOMI, Normal appearance, PERRL - ENT Exam ENT Exam: Mucous Membranes Moist, Normal Oropharynx - Neck Exam Neck exam: Positive for: Full Rom, Normal Inspection. Negative for: Tenderness - Respiratory Exam Respiratory Exam: Clear to Auscultation Bilateral. absent: Rhonchi, Wheezes - Cardiovascular Exam Cardiovascular Exam: REGULAR RHYTHM, +S1, +S2. absent: Diastolic murmur, Gallop , Rubs, Systolic Murmur - GI/Abdominal Exam GI & Abdominal Exam: Normal Bowel Sounds, Soft. absent: Tenderness - Extremities Exam Extremities exam: Positive for: normal inspection, pedal pulses present. Negative for: calf tenderness, pedal edema - Neurological Exam Neurological exam: Alert - Skin Skin Exam: Normal Color, Warm Assessment and Plan - Assessment and Plan (Free Text) Assessment: Mechanical fall -Unclear etiology as patient is a poor historian/confused (baseline orientation to person only) -Seizure vs vagal mediated -Cardiology reviewed patient's previous cardiac workups, no high risk features -Repeat CT Head shows no intracranial hemorrhage. Age appropriate atrophy and chronic white matter ischemic change -CT Maxillofacial unremarkable -Neurology consulted, Dr. Can help appreciated Pt refusing MRI brain Dementia, Alzheimer type Psychiatry consulted Seroquel 25mg HS Ativan 0.5mg IV Q8 prn Aricept 5mg PO HS Crestor 20mg PO HS Seizure Seizure precaution Keppra 750mg PO Q12 Neurology Consulted, Dr. Can help appreciated Leukopenia Resolved Monitor Hx of Breast CA Anastrozole 1mg PO Daily Insomnia Benadryl 20mg PO HS PRN Prophylactic measures -Lovenox -Protonix 40mg PO daily -PT/OT: Home with services Disposition: Awaiting for guardianship hearing and further placement Case discussed with attending physician All management per Dr. Duran
--- NOTE | 2017-10-19 19:02 | CP.PCM.PN ---
Subjective - Date & Time of Evaluation Date of Evaluation: 10/19/17 Time of Evaluation: 09:00 - Subjective Subjective: clinically same Objective - Vital Signs/Intake and Output Vital Signs (last 24 hours): Temp Pulse Resp BP Pulse Ox 97.9 F 75 20 110/66 97 10/19/17 15:00 10/19/17 15:00 10/19/17 15:00 10/19/17 15:00 10/19/17 15:00 - Medications Medications: Current Medications Acetaminophen (Tylenol 325mg Tab) 650 mg PO Q6 PRN PRN Reason: Pain, Mild (1-3) Last Admin: 10/16/17 20:35 Dose: 650 mg Anastrozole (Arimidex 1 Mg Tab) 1 mg PO DAILY [facility] Last Admin: 10/19/17 11:12 Dose: Not Given Aspirin (Ecotrin) 81 mg PO DAILY [facility] Last Admin: 10/19/17 11:12 Dose: Not Given Diphenhydramine HCl (Benadryl) 50 mg IVP Q6 PRN PRN Reason: Insomnia IF NPO Last Admin: 10/14/17 09:18 Dose: 50 mg Diphenhydramine HCl (Benadryl) 50 mg PO Q8 PRN PRN Reason: Insomnia Last Admin: 10/16/17 20:35 Dose: 50 mg Donepezil HCl (Aricept) 5 mg PO HS [facility] Last Admin: 10/18/17 22:23 Dose: Not Given Levetiracetam (Keppra) 750 mg PO BID [facility] Last Admin: 10/17/17 17:40 Dose: 750 mg Levetiracetam (Keppra) 750 mg PO BID [facility] Last Admin: 10/19/17 17:20 Dose: 750 mg Lorazepam (Ativan) 0.5 mg IVP Q8H PRN PRN Reason: Anxiety Pantoprazole Sodium (Protonix Ec Tab) 40 mg PO DAILY [facility] Last Admin: 10/19/17 11:13 Dose: Not Given Quetiapine Fumarate (Seroquel) 25 mg PO [facility] Last Admin: 10/18/17 22:24 Dose: Not Given Rosuvastatin Calcium (Crestor) 20 mg PO [facility] Last Admin: 10/18/17 22:23 Dose: Not Given - Labs Labs: 10/17/17 06:26 10/17/17 06:26 PT 12.7 SECONDS (9.7-12.2) H 10/05/17 17:38 INR 1.2 10/05/17 17:38 APTT 29 SECONDS (21-34) 10/05/17 17:38 - Constitutional Appears: Well - Head Exam Head Exam: ATRAUMATIC, NORMAL INSPECTION, NORMOCEPHALIC - Eye Exam Eye Exam: EOMI, Normal appearance, PERRL Pupil Exam: NORMAL ACCOMODATION, PERRL - ENT Exam ENT Exam: Mucous Membranes Moist, Normal Exam - Neck Exam Neck Exam: Full ROM, Normal Inspection. absent: Lymphadenopathy - Respiratory Exam Respiratory Exam: Decreased Breath Sounds - Cardiovascular Exam Cardiovascular Exam: REGULAR RHYTHM, +S1, +S2 - GI/Abdominal Exam GI & Abdominal Exam: Soft, Diminished Bowel Sounds - Rectal Exam Rectal Exam: Deferred
[2017-10-20] MEDS: levETIRAcetam 100 mg/ml (5ml) Oral Syringe PO SCH ×2 (09:23→18:16)
[2017-10-20] MEDS: Pantoprazole 40 mg EC Tab PO SCH (09:23)
--- NOTE | 2017-10-20 15:06 | CP.PCM.PN ---
Subjective - Date & Time of Evaluation Date of Evaluation: 10/20/17 Time of Evaluation: 09:20 - Subjective Subjective: clinically same Objective - Vital Signs/Intake and Output Vital Signs (last 24 hours): Temp Pulse Resp BP Pulse Ox 97.9 F 75 20 110/66 97 10/19/17 15:00 10/19/17 15:00 10/19/17 15:00 10/19/17 15:00 10/19/17 15:00 - Medications Medications: Current Medications Acetaminophen (Tylenol 325mg Tab) 650 mg PO Q6 PRN PRN Reason: Pain, Mild (1-3) Last Admin: 10/19/17 21:58 Dose: 650 mg Anastrozole (Arimidex 1 Mg Tab) 1 mg PO DAILY [facility] Last Admin: 10/20/17 09:25 Dose: Not Given Aspirin (Ecotrin) 81 mg PO DAILY [facility] Last Admin: 10/20/17 09:23 Dose: 81 mg Diphenhydramine HCl (Benadryl) 50 mg IVP Q6 PRN PRN Reason: Insomnia IF NPO Last Admin: 10/14/17 09:18 Dose: 50 mg Diphenhydramine HCl (Benadryl) 50 mg PO Q8 PRN PRN Reason: Insomnia Last Admin: 10/20/17 09:23 Dose: 50 mg Donepezil HCl (Aricept) 5 mg PO HS [facility] Last Admin: 10/19/17 21:58 Dose: Not Given Levetiracetam (Keppra) 750 mg PO BID [facility] Last Admin: 10/17/17 17:40 Dose: 750 mg Levetiracetam (Keppra) 750 mg PO BID [facility] Last Admin: 10/20/17 09:23 Dose: 750 mg Lorazepam (Ativan) 0.5 mg IVP Q8H PRN PRN Reason: Anxiety Pantoprazole Sodium (Protonix Ec Tab) 40 mg PO DAILY [facility] Last Admin: 10/20/17 09:23 Dose: 40 mg Quetiapine Fumarate (Seroquel) 25 mg PO HS [facility] Last Admin: 10/19/17 21:58 Dose: 25 mg Rosuvastatin Calcium (Crestor) 20 mg PO HS [facility] Last Admin: 10/19/17 21:58 Dose: Not Given - Labs Labs: 10/17/17 06:26 10/17/17 06:26 PT 12.7 SECONDS (9.7-12.2) H 10/05/17 17:38 INR 1.2 10/05/17 17:38 APTT 29 SECONDS (21-34) 10/05/17 17:38 - Constitutional Appears: Well - Head Exam Head Exam: ATRAUMATIC, NORMAL INSPECTION, NORMOCEPHALIC - Eye Exam Eye Exam: EOMI, Normal appearance, PERRL Pupil Exam: NORMAL ACCOMODATION, PERRL - ENT Exam ENT Exam: Mucous Membranes Moist, Normal Exam - Neck Exam Neck Exam: Full ROM, Normal Inspection. absent: Lymphadenopathy - Respiratory Exam Respiratory Exam: Decreased Breath Sounds - Cardiovascular Exam Cardiovascular Exam: REGULAR RHYTHM, +S1, +S2 - GI/Abdominal Exam GI & Abdominal Exam: Soft, Diminished Bowel Sounds - Rectal Exam Rectal Exam: Deferred
[2017-10-21] MEDS: Pantoprazole 40 mg EC Tab PO SCH (10:52)
[2017-10-21] MEDS: levETIRAcetam 100 mg/ml (5ml) Oral Syringe PO SCH ×2 (10:52→17:19)
--- NOTE | 2017-10-21 16:00 | CP.PCM.PN ---
Subjective - Date & Time of Evaluation Date of Evaluation: 10/21/17 Time of Evaluation: 09:20 - Subjective Subjective: clinically same Objective - Vital Signs/Intake and Output Vital Signs (last 24 hours): Temp Pulse Resp BP Pulse Ox 97.7 F 88 20 102/58 L 99 10/20/17 23:30 10/20/17 23:30 10/20/17 23:30 10/20/17 23:30 10/20/17 23:30 - Medications Medications: Current Medications Acetaminophen (Tylenol 325mg Tab) 650 mg PO Q6 PRN PRN Reason: Pain, Mild (1-3) Last Admin: 10/21/17 06:13 Dose: 325 mg Diphenhydramine HCl (Benadryl) 50 mg IVP Q6 PRN PRN Reason: Insomnia IF NPO Last Admin: 10/14/17 09:18 Dose: 50 mg Diphenhydramine HCl (Benadryl) 50 mg PO Q8 PRN PRN Reason: Insomnia Last Admin: 10/21/17 06:13 Dose: 50 mg Donepezil HCl (Aricept) 5 mg PO HS [facility] Last Admin: 10/20/17 21:37 Dose: 5 mg Levetiracetam (Keppra) 750 mg PO BID [facility] Last Admin: 10/17/17 17:40 Dose: 750 mg Levetiracetam (Keppra) 750 mg PO BID [facility] Last Admin: 10/21/17 10:52 Dose: 750 mg Lorazepam (Ativan) 0.5 mg IVP Q8H PRN PRN Reason: Anxiety Pantoprazole Sodium (Protonix Ec Tab) 40 mg PO DAILY [facility] Last Admin: 10/21/17 10:52 Dose: 40 mg Quetiapine Fumarate (Seroquel) 25 mg PO HS [facility] Last Admin: 10/20/17 21:37 Dose: 25 mg Rosuvastatin Calcium (Crestor) 20 mg PO HS [facility] Last Admin: 10/20/17 21:37 Dose: 20 mg - Labs Labs: 10/17/17 06:26 10/17/17 06:26 PT 12.7 SECONDS (9.7-12.2) H 10/05/17 17:38 INR 1.2 10/05/17 17:38 APTT 29 SECONDS (21-34) 10/05/17 17:38 - Constitutional Appears: Well - Head Exam Head Exam: ATRAUMATIC, NORMAL INSPECTION, NORMOCEPHALIC - Eye Exam Eye Exam: EOMI, Normal appearance, PERRL Pupil Exam: NORMAL ACCOMODATION, PERRL - ENT Exam ENT Exam: Mucous Membranes Moist, Normal Exam - Neck Exam Neck Exam: Full ROM, Normal Inspection. absent: Lymphadenopathy - Respiratory Exam Respiratory Exam: Decreased Breath Sounds - Cardiovascular Exam Cardiovascular Exam: REGULAR RHYTHM, +S1, +S2 - GI/Abdominal Exam GI & Abdominal Exam: Soft, Diminished Bowel Sounds - Rectal Exam Rectal Exam: Deferred
--- NOTE | 2017-10-22 08:06 | CP.PCM.PN ---
<Karim,Lynette - Last Filed: 10/22/17 13:27> Subjective - Date & Time of Evaluation Date of Evaluation: 10/22/17 Time of Evaluation: 08:03 - Subjective Subjective: PGY2 progress note for Dr. Duran Pt seen and examined at bedside. No acute events overnight. Patient refused medications overnight. Currently is confused and refuses to move from roommates bed. ROS unobtainable due to dementia. Objective - Vital Signs/Intake and Output Vital Signs (last 24 hours): Temp Pulse Resp BP Pulse Ox 97.9 F 86 20 180/89 H 96 10/21/17 15:10 10/21/17 15:10 10/21/17 15:10 10/21/17 15:10 10/21/17 15:10 Intake and Output: 10/22/17 10/22/17 06:59 18:59 Intake Total 500 Balance 500 - Medications Medications: Current Medications Acetaminophen (Tylenol 325mg Tab) 650 mg PO Q6 PRN PRN Reason: Pain, Mild (1-3) Last Admin: 10/21/17 06:13 Dose: 325 mg Donepezil HCl (Aricept) 5 mg PO [facility] Last Admin: 10/21/17 21:32 Dose: Not Given Levetiracetam (Keppra) 750 mg PO BID [facility] Last Admin: 10/17/17 17:40 Dose: 750 mg Levetiracetam (Keppra) 750 mg PO BID [facility] Last Admin: 10/21/17 17:19 Dose: 750 mg Pantoprazole Sodium (Protonix Ec Tab) 40 mg PO DAILY [facility] Last Admin: 10/21/17 10:52 Dose: 40 mg Quetiapine Fumarate (Seroquel) 25 mg PO [facility] Last Admin: 10/21/17 21:33 Dose: Not Given Rosuvastatin Calcium (Crestor) 20 mg PO [facility] Last Admin: 10/21/17 21:33 Dose: Not Given - Labs Labs: 10/17/17 06:26 10/17/17 06:26 PT 12.7 SECONDS (9.7-12.2) H 10/05/17 17:38 INR 1.2 10/05/17 17:38 APTT 29 SECONDS (21-34) 10/05/17 17:38 - Constitutional Appears: Non-toxic, No Acute Distress - Head Exam Head Exam: ATRAUMATIC - ENT Exam ENT Exam: Mucous Membranes Moist - Respiratory Exam Respiratory Exam: Clear to Ausculation Bilateral, NORMAL BREATHING PATTERN - Cardiovascular Exam Cardiovascular Exam: REGULAR RHYTHM, +S1, +S2. absent: Rubs, Murmur - GI/Abdominal Exam GI & Abdominal Exam: Soft, Normal Bowel Sounds. absent: Guarding, Rigid, Tenderness - Neurological Exam Neurological Exam: Awake - Skin Skin Exam: Dry, Intact, Normal Color, Warm Assessment and Plan - Assessment and Plan (Free Text) Assessment: Mechanical fall -Unclear etiology as patient is a poor historian/confused (baseline orientation to person only) -Seizure vs vagal mediated -Cardiology reviewed patient's previous cardiac workups, no high risk features -Repeat CT Head shows no intracranial hemorrhage. Age appropriate atrophy and chronic white matter ischemic change -CT Maxillofacial unremarkable -Neurology consulted, Dr. Can help appreciated Dementia, Alzheimer type Psychiatry consulted Seroquel 25mg HS Aricept 5mg PO HS Crestor 20mg PO HS Seizure Seizure precaution Keppra 750mg PO Q12 Neurology Consulted, Dr. Can help appreciated Leukopenia Resolved Monitor Hx of Breast CA Anastrozole 1mg PO Daily Insomnia Seroquel 25 mg po HS Prophylactic measures -oral anticoag contraindicated due to risk of fall and recent head trauma - SCDs ordered -Protonix 40mg PO daily -PT/OT: Home with services Disposition: Awaiting for guardianship hearing and further placement Case discussed with attending physician All management per Dr. Duran <Ely Duran S - Last Filed: 10/22/17 23:53> Objective - Vital Signs/Intake and Output Vital Signs (last 24 hours): Temp Pulse Resp BP Pulse Ox 98.5 F 68 18 117/67 99 10/22/17 09:24 10/22/17 09:24 10/22/17 09:24 10/22/17 10:05 10/22/17 09:24 Intake and Output: 10/22/17 10/23/17 18:59 06:59 Intake Total 600 Balance 600 - Medications Medications: Current Medications Acetaminophen (Tylenol 325mg Tab) 650 mg PO Q6 PRN PRN Reason: Pain, Mild (1-3) Last Admin: 10/21/17 06:13 Dose: 325 mg Donepezil HCl (Aricept) 5 mg PO HS [facility] Last Admin: 10/22/17 22:47 Dose: Not Given Levetiracetam (Keppra) 750 mg PO BID [facility] Last Admin: 10/17/17 17:40 Dose: 750 mg Levetiracetam (Keppra) 750 mg PO BID [facility] Last Admin: 10/22/17 18:03 Dose: 750 mg Pantoprazole Sodium (Protonix Ec Tab) 40 mg PO DAILY [facility] Last Admin: 10/22/17 09:57 Dose: Not Given Quetiapine Fumarate (Seroquel) 25 mg PO [facility] Last Admin: 10/22/17 22:47 Dose: Not Given Rosuvastatin Calcium (Crestor) 20 mg PO [facility] Last Admin: 10/22/17 22:47 Dose: Not Given - Labs Labs: 10/17/17 06:26 10/17/17 06:26 PT 12.7 SECONDS (9.7-12.2) H 10/05/17 17:38 INR 1.2 10/05/17 17:38 APTT 29 SECONDS (21-34) 10/05/17 17:38 Assessment and Plan (1) Altered mental status Status: Acute (2) Closed head injury Status: Acute (3) Recurrent falls Status: Acute (4) Syncope Status: Acute (5) Chest pain Status: Acute (6) Confusion Status: Acute (7) Dehydration Status: Acute (8) Dementia Status: Acute (9) Medical assessment Status: Acute Attending/Attestation - Attestation I have personally seen and examined this patient.: Yes I have fully participated in the care of the patient.: Yes I have reviewed all pertinent clinical information, including history, physical exam and plan: Yes Notes (Text): 10/22/17 23:52 case seen and d.w staff and resident, concurred with finding and management..
[2017-10-22 09:25] VITALS: PULSE 68
[2017-10-22] MEDS: Pantoprazole 40 mg EC Tab PO SCH ×2 (09:52→09:57)
[2017-10-22] MEDS: levETIRAcetam 100 mg/ml (5ml) Oral Syringe PO SCH ×2 (09:54→18:03)
--- NOTE | 2017-10-22 19:22 | CP.PCM.PN ---
Subjective - Date & Time of Evaluation Date of Evaluation: 10/22/17 Time of Evaluation: 10:40 - Subjective Subjective: clinically same Objective - Vital Signs/Intake and Output Vital Signs (last 24 hours): Temp Pulse Resp BP Pulse Ox 98.5 F 68 18 117/67 99 10/22/17 09:24 10/22/17 09:24 10/22/17 09:24 10/22/17 10:05 10/22/17 09:24 - Medications Medications: Current Medications Acetaminophen (Tylenol 325mg Tab) 650 mg PO Q6 PRN PRN Reason: Pain, Mild (1-3) Last Admin: 10/21/17 06:13 Dose: 325 mg Donepezil HCl (Aricept) 5 mg PO [facility] Last Admin: 10/21/17 21:32 Dose: Not Given Levetiracetam (Keppra) 750 mg PO BID [facility] Last Admin: 10/17/17 17:40 Dose: 750 mg Levetiracetam (Keppra) 750 mg PO [facility]ID [facility] Last Admin: 10/22/17 18:03 Dose: 750 mg Pantoprazole Sodium (Protonix Ec Tab) 40 mg PO DAILY [facility] Last Admin: 10/22/17 09:57 Dose: Not Given Quetiapine Fumarate (Seroquel) 25 mg PO [facility] Last Admin: 10/21/17 21:33 Dose: Not Given Rosuvastatin Calcium (Crestor) 20 mg PO [facility] Last Admin: 10/21/17 21:33 Dose: Not Given - Labs Labs: 10/17/17 06:26 10/17/17 06:26 PT 12.7 SECONDS (9.7-12.2) H 10/05/17 17:38 INR 1.2 10/05/17 17:38 APTT 29 SECONDS (21-34) 10/05/17 17:38 - Constitutional Appears: Well - Head Exam Head Exam: ATRAUMATIC, NORMAL INSPECTION, NORMOCEPHALIC - Eye Exam Eye Exam: EOMI, Normal appearance, PERRL Pupil Exam: NORMAL ACCOMODATION, PERRL - ENT Exam ENT Exam: Mucous Membranes Moist, Normal Exam - Neck Exam Neck Exam: Full ROM, Normal Inspection. absent: Lymphadenopathy - Respiratory Exam Respiratory Exam: Decreased Breath Sounds - Cardiovascular Exam Cardiovascular Exam: REGULAR RHYTHM, +S1, +S2 - GI/Abdominal Exam GI & Abdominal Exam: Soft, Diminished Bowel Sounds - Rectal Exam Rectal Exam: Deferred Assessment and Plan (1) Altered mental status Status: Acute (2) Closed head injury Status: Acute (3) Recurrent falls Status: Acute (4) Syncope Status: Acute (5) Chest pain Status: Acute (6) Confusion Status: Acute (7) Dehydration Status: Acute (8) Dementia Status: Acute (9) Medical assessment Status: Acute - Assessment and Plan (Free Text) Plan: Mechanical fall -Unclear etiology as patient is a poor historian/confused (baseline orientation to person only) -Seizure vs vagal mediated -Cardiology reviewed patient's previous cardiac workups, no high risk features -Repeat CT Head shows no intracranial hemorrhage. Age appropriate atrophy and chronic white matter ischemic change -CT Maxillofacial unremarkable -Neurology consulted, Dr. Can help appreciated Dementia, Alzheimer type Psychiatry consulted Seroquel 25mg HS Aricept 5mg PO HS Crestor 20mg PO HS Seizure Seizure precaution Keppra 750mg PO Q12 Neurology Consulted, Dr. Can help appreciated Leukopenia Resolved Monitor Hx of Breast CA Anastrozole 1mg PO Daily Insomnia Seroquel 25 mg po HS Prophylactic measures -oral anticoag contraindicated due to risk of fall and recent head trauma - SCDs ordered -Protonix 40mg PO daily -PT/OT: Home with services Disposition: Awaiting for guardianship hearing and further placement
[2017-10-23] MEDS: levETIRAcetam 100 mg/ml (5ml) Oral Syringe PO SCH ×2 (10:39→17:21)
--- NOTE | 2017-10-23 13:13 | CP.PCM.PN ---
Subjective - Date & Time of Evaluation Date of Evaluation: 10/23/17 Time of Evaluation: 13:12 - Subjective Subjective: PGY2 Medicine Note for Dr. Christian Tobar; all management as per Dr. Christian tobar patient seen and examined at bedside; appears comfortable; unable to obtain ROS 2/2 to advanced dementia Objective - Vital Signs/Intake and Output Vital Signs (last 24 hours): Temp Pulse Resp BP Pulse Ox 98.5 F 68 18 117/67 99 10/22/17 09:24 10/22/17 09:24 10/22/17 09:24 10/22/17 10:05 10/22/17 09:24 Intake and Output: 10/23/17 10/23/17 06:59 18:59 Intake Total 600 Balance 600 - Medications Medications: Current Medications Acetaminophen (Tylenol 325mg Tab) 650 mg PO Q6 PRN PRN Reason: Pain, Mild (1-3) Last Admin: 10/21/17 06:13 Dose: 325 mg Donepezil HCl (Aricept) 5 mg PO [facility] Last Admin: 10/22/17 22:47 Dose: Not Given Levetiracetam (Keppra) 750 mg PO BID [facility] Last Admin: 10/17/17 17:40 Dose: 750 mg Levetiracetam (Keppra) 750 mg PO BID [facility] Last Admin: 10/23/17 10:39 Dose: Not Given Quetiapine Fumarate (Seroquel) 25 mg PO [facility] Last Admin: 10/22/17 22:47 Dose: Not Given Rosuvastatin Calcium (Crestor) 20 mg PO [facility] Last Admin: 10/22/17 22:47 Dose: Not Given - Labs Labs: 10/17/17 06:26 10/17/17 06:26 PT 12.7 SECONDS (9.7-12.2) H 10/05/17 17:38 INR 1.2 10/05/17 17:38 APTT 29 SECONDS (21-34) 10/05/17 17:38 - Constitutional Appears: Non-toxic, Chronically Ill - Respiratory Exam Respiratory Exam: Clear to Ausculation Bilateral - Cardiovascular Exam Cardiovascular Exam: REGULAR RHYTHM - GI/Abdominal Exam GI & Abdominal Exam: Soft - Neurological Exam Neurological Exam: Awake - Psychiatric Exam Psychiatric exam: Normal Affect - Skin Skin Exam: Warm Assessment and Plan - Assessment and Plan (Free Text) Assessment: Mechanical fall -Unclear etiology as patient is a poor historian/confused (baseline orientation to person only) -Seizure vs vagal mediated -Cardiology reviewed patient's previous cardiac workups, no high risk features -Repeat CT Head shows no intracranial hemorrhage. Age appropriate atrophy and chronic white matter ischemic change -CT Maxillofacial unremarkable -Neurology consulted, Dr. Can help appreciated Dementia, Alzheimer type Psychiatry consulted Seroquel 25mg HS Aricept 5mg PO HS Crestor 20mg PO HS Seizure Seizure precaution Keppra 750mg PO Q12 Neurology Consulted, Dr. Can help appreciated Leukopenia Resolved Monitor Hx of Breast CA Anastrozole 1mg PO Daily Insomnia Seroquel 25 mg po HS Prophylactic measures -oral anticoag contraindicated due to risk of fall and recent head trauma - SCDs ordered -Protonix 40mg PO daily -PT/OT: Home with services Disposition: Awaiting for guardianship hearing and further placement Case discussed with attending physician All management per Dr. Tobar
--- NOTE | 2017-10-23 16:34 | CP.PCM.PN ---
Subjective - Date & Time of Evaluation Date of Evaluation: 10/23/17 Time of Evaluation: 11:00 - Subjective Subjective: clinically same Objective - Vital Signs/Intake and Output Vital Signs (last 24 hours): Temp Pulse Resp BP Pulse Ox 98.5 F 68 18 117/67 99 10/22/17 09:24 10/22/17 09:24 10/22/17 09:24 10/22/17 10:05 10/22/17 09:24 Intake and Output: 10/23/17 10/23/17 06:59 18:59 Intake Total 600 Balance 600 - Medications Medications: Current Medications Acetaminophen (Tylenol 325mg Tab) 650 mg PO Q6 PRN PRN Reason: Pain, Mild (1-3) Last Admin: 10/21/17 06:13 Dose: 325 mg Donepezil HCl (Aricept) 5 mg PO [facility] Last Admin: 10/22/17 22:47 Dose: Not Given Levetiracetam (Keppra) 750 mg PO BID [facility] Last Admin: 10/17/17 17:40 Dose: 750 mg Levetiracetam (Keppra) 750 mg PO BID [facility] Last Admin: 10/23/17 10:39 Dose: Not Given Quetiapine Fumarate (Seroquel) 25 mg PO [facility] Last Admin: 10/22/17 22:47 Dose: Not Given Rosuvastatin Calcium (Crestor) 20 mg PO [facility] Last Admin: 10/22/17 22:47 Dose: Not Given - Labs Labs: 10/17/17 06:26 10/17/17 06:26 PT 12.7 SECONDS (9.7-12.2) H 10/05/17 17:38 INR 1.2 10/05/17 17:38 APTT 29 SECONDS (21-34) 10/05/17 17:38 - Constitutional Appears: Well - Head Exam Head Exam: ATRAUMATIC, NORMAL INSPECTION, NORMOCEPHALIC - Eye Exam Eye Exam: EOMI, Normal appearance, PERRL Pupil Exam: NORMAL ACCOMODATION, PERRL - ENT Exam ENT Exam: Mucous Membranes Moist, Normal Exam - Neck Exam Neck Exam: Full ROM, Normal Inspection. absent: Lymphadenopathy - Respiratory Exam Respiratory Exam: Decreased Breath Sounds - Cardiovascular Exam Cardiovascular Exam: REGULAR RHYTHM, +S1, +S2 - GI/Abdominal Exam GI & Abdominal Exam: Soft, Diminished Bowel Sounds - Rectal Exam Rectal Exam: Deferred Assessment and Plan (1) Altered mental status Status: Acute (2) Closed head injury Status: Acute (3) Recurrent falls Status: Acute (4) Syncope Status: Acute (5) Chest pain Status: Acute (6) Confusion Status: Acute (7) Dehydration Status: Acute (8) Dementia Status: Acute (9) Medical assessment Status: Acute
--- NOTE | 2017-10-24 07:56 | CP.PCM.PN ---
Subjective - Date & Time of Evaluation Date of Evaluation: 10/24/17 Time of Evaluation: 07:52 - Subjective Subjective: PGY2 progress note for Dr. Duran Pt seen and examined at bedside. No acute events overnight. Pt resting comfortably currently pleasant. Denies having any CP, SOB, abd pain, N/V/D/C, F /C. Objective - Vital Signs/Intake and Output Vital Signs (last 24 hours): Temp Pulse Resp BP Pulse Ox 98.5 F 68 18 117/67 99 10/22/17 09:24 10/22/17 09:24 10/22/17 09:24 10/22/17 10:05 10/22/17 09:24 - Medications Medications: Current Medications Acetaminophen (Tylenol 325mg Tab) 650 mg PO Q6 PRN PRN Reason: Pain, Mild (1-3) Last Admin: 10/21/17 06:13 Dose: 325 mg Donepezil HCl (Aricept) 5 mg PO [facility] Last Admin: 10/23/17 22:58 Dose: Not Given Levetiracetam (Keppra) 750 mg PO BID [facility] Last Admin: 10/17/17 17:40 Dose: 750 mg Levetiracetam (Keppra) 750 mg PO BID [facility] Last Admin: 10/23/17 17:21 Dose: 750 mg Quetiapine Fumarate (Seroquel) 25 mg PO [facility] Last Admin: 10/23/17 22:57 Dose: Not Given Rosuvastatin Calcium (Crestor) 20 mg PO [facility] Last Admin: 10/23/17 22:58 Dose: Not Given - Labs Labs: 10/17/17 06:26 10/17/17 06:26 PT 12.7 SECONDS (9.7-12.2) H 10/05/17 17:38 INR 1.2 10/05/17 17:38 APTT 29 SECONDS (21-34) 10/05/17 17:38 - Constitutional Appears: Non-toxic, No Acute Distress - Head Exam Head Exam: ATRAUMATIC - ENT Exam ENT Exam: Mucous Membranes Moist - Respiratory Exam Respiratory Exam: Clear to Ausculation Bilateral. absent: Accessory Muscle Use , Rhonchi, Wheezes, Respiratory Distress - Cardiovascular Exam Cardiovascular Exam: REGULAR RHYTHM, +S1, +S2. absent: Gallop, Rubs, Murmur - GI/Abdominal Exam GI & Abdominal Exam: Soft, Normal Bowel Sounds. absent: Distended, Firm, Guarding, Rigid, Tenderness, Organomegaly - Extremities Exam Extremities Exam: absent: Pedal Edema, Tenderness - Neurological Exam Neurological Exam: Alert, Awake - Skin Skin Exam: Dry, Intact, Normal Color, Warm Assessment and Plan - Assessment and Plan (Free Text) Assessment: Mechanical fall -Unclear etiology as patient is a poor historian/confused (baseline orientation to person only) -Seizure vs vagal mediated -Cardiology reviewed patient's previous cardiac workups, no high risk features -Repeat CT Head shows no intracranial hemorrhage. Age appropriate atrophy and chronic white matter ischemic change -CT Maxillofacial unremarkable -Neurology consulted, Dr. Can help appreciated Dementia, Alzheimer type Psychiatry consulted Seroquel 25mg HS Aricept 5mg PO HS Crestor 20mg PO HS Seizure Seizure precaution Keppra 750mg PO Q12 Neurology Consulted, Dr. Can help appreciated Leukopenia Resolved Monitor Hx of Breast CA Anastrozole 1mg PO Daily Insomnia Seroquel 25 mg po HS Prophylactic measures -oral anticoag contraindicated due to risk of fall and recent head trauma -SCDs ordered -Protonix 40mg PO daily -PT/OT: Home with services - Currently on 1:1 due ot waxxing and waning mental status and risk of harm to self Disposition: Awaiting for guardianship hearing and further placement Case discussed with attending physician All management per Dr. Duran Pt stable for discharge per Dr Duran She may continue the medications listed in the medication reconciliation Patient should follow up with her PMD regarding her chronic medical conditions in one week's time. Patient should be returned to the ED if symptoms return or worsen. Patient verbalized understanding to these instructions and agreed.
[2017-10-24] MEDS: levETIRAcetam 100 mg/ml (5ml) Oral Syringe PO SCH (09:20)
[2017-10-24 16:18] VITALS: BP 109/67; RESP 20; TEMP 98.2; O2SAT 98
--- NOTE | 2017-10-24 19:18 | CP.PCM.PN ---
Subjective - Date & Time of Evaluation Date of Evaluation: 10/24/17 Time of Evaluation: 07:00 Objective - Vital Signs/Intake and Output Vital Signs (last 24 hours): Temp Pulse Resp BP Pulse Ox 98.2 F 68 20 109/67 98 10/24/17 16:17 10/24/17 16:17 10/24/17 16:17 10/24/17 16:17 10/24/17 16:17 - Labs Labs: 10/17/17 06:26 10/17/17 06:26 PT 12.7 SECONDS (9.7-12.2) H 10/05/17 17:38 INR 1.2 10/05/17 17:38 APTT 29 SECONDS (21-34) 10/05/17 17:38 Assessment and Plan (1) Altered mental status Status: Acute (2) Closed head injury Status: Acute (3) Recurrent falls Status: Acute (4) Syncope Status: Acute (5) Chest pain Status: Acute (6) Confusion Status: Acute (7) Dehydration Status: Acute (8) Dementia Status: Acute (9) Medical assessment Status: Acute
== END 2017-10-24 16:57 | DRG 57 ==
LOC: C.ER 15:51 → C.9E 18:35 → C.6T 20:58
PROVIDERS: ADMIT Internal Medicine Nephrology; ATTEND Internal Medicine Nephrology
PROC: 0HQ1XZZ Repair Face Skin, External Approach (ICD-10-PCS; principal; 2017-10-05)
DX: G30.9 Alzheimer's disease, unspecified (principal); F02.81 Dementia in other diseases classified elsewhere, unspecified severity, with behavioral disturbance; F05 Delirium due to known physiological condition; S01.412A Laceration without foreign body of left cheek and temporomandibular area, initial encounter; G40.909 Epilepsy, unspecified, not intractable, without status epilepticus; F07.81 Postconcussional syndrome; E86.0 Dehydration; D72.819 Decreased white blood cell count, unspecified; W01.0XXA Fall on same level from slipping, tripping and stumbling without subsequent striking against object, initial encounter; R29.6 Repeated falls; G47.00 Insomnia, unspecified; Z91.83 Wandering in diseases classified elsewhere; Z91.14 Patient's other noncompliance with medication regimen; Z98.42 Cataract extraction status, left eye; Z96.1 Presence of intraocular lens; Z91.81 History of falling; Z85.3 Personal history of malignant neoplasm of breast; Z79.899 Other long term (current) drug therapy; Z98.51 Tubal ligation status

== ENCOUNTER 2017-10-24 20:14 | Emergency (ER) | payer MEDICARE, BC ==
[2017-10-24 20:14] VITALS: BMI 16.1
--- NOTE | 2017-10-24 21:17 | C.PDOC ---
History Of Present Illness 77-year-old female sent in from halfway due to change in behavior today. Patient reportedly became agitated and tried to leave. She denies any suicidal or homicidal ideation. Patient offers no physical complaints. Time Seen by Provider: 10/24/17 21:01 Chief Complaint (Nursing): Psychiatric Evaluation History Per: Patient History/Exam Limitations: clinical condition (dementia) Onset/Duration Of Symptoms: Hrs Current Symptoms Are (Timing): Still Present Additional History Per: EMS Past Medical History Reviewed: Historical Data, Nursing Documentation, Vital Signs Vital Signs: Last Vital Signs Temp 98.1 F 10/24/17 20:22 Pulse 71 10/24/17 20:22 Resp 16 10/24/17 20:22 BP 105/66 10/24/17 20:22 Pulse Ox 98 10/25/17 06:31 - Medical History PMH: Anxiety, Dementia, Malignancy (Left breast cancer), Seizures (epilepsy) Denies: Chronic Kidney Disease Other Surgeries: Breast lumpectomy - [facility] Procedures CATARAC PHACOEMULS/ASPIR (01/27/14) INSERT LENS AT CATAR EXT (01/27/14) MONITORING OF CARDIAC OUTPUT BY OTHER TECHNIQUE (03/31/04) Family History: States: Unknown Family Hx - Social History Hx Alcohol Use: No Hx Substance Use: No - Immunization History Hx Tetanus Toxoid Vaccination: No Hx Influenza Vaccination: No Hx Pneumococcal Vaccination: No Review Of Systems Except As Marked, All Systems Reviewed And Found Negative. Constitutional: Positive for: Other (agitated behavior). Negative for: Fever Cardiovascular: Negative for: Chest Pain Respiratory: Negative for: Shortness of Breath Gastrointestinal: Negative for: Vomiting Physical Exam - Physical Exam Appears: Non-toxic, No Acute Distress Skin: Normal Color, Warm, Dry Head: Atraumatic, Normacephalic Eye(s): bilateral: Normal Inspection, PERRL, EOMI Oral Mucosa: Moist Neck: Normal ROM, Supple Chest: Symmetrical Cardiovascular: Rhythm Regular, No Murmur Respiratory: Normal Breath Sounds, No Rales, No Rhonchi, No Wheezing Gastrointestinal/Abdominal: Soft, No Tenderness, No Distention Extremity: Bilateral: Atraumatic, Normal Color And Temperature Pulses: Left Dorsalis Pedis: Normal, Right Dorsalis Pedis: Normal Neurological/Psych: Other (Alert, conscious, no focal deficits; States she is nervous) ED Course And Treatment - Laboratory Results Result Diagrams: 10/24/17 21:21 10/24/17 21:21 ECG: Interpreted By Me, Viewed By Me ECG Rhythm: Sinus Rhythm ECG Interpretation: No Acute Changes, Abnormal Interpretation Of ECG: NSR, LAD, left anterior hemiblock, No acute changes, no significant chnge from tracings of 10/05/2017. Rate From EC O2 Sat by Pulse Oximetry: 98 (RA) Pulse Ox Interpretation: Normal - Radiology CXR: Interpreted by Me CXR Interpretation: Yes: No Acute Disease. No: Infiltrates - Other Rad CXR X-Ray: Read By Radiologist Interpretation: EXAM: XR Chest, 1 View. CLINICAL HISTORY: 77 years old, female; Signs and symptoms; Other: Psych; Additional info: For transfer. TECHNIQUE: Frontal view of the chest 1:13 AM 10/25/2017. COMPARISON: No relevant prior studies available. FINDINGS: Lungs: Mildly prominent interstitial markings probably secondary to fibrosis. No focal consolidation. Pleural space: Unremarkable. No pneumothorax. Heart: Unremarkable. No cardiomegaly. Mediastinum: Unremarkable. Upper abdomen: The right hemidiaphragm is mildly elevated. IMPRESSION: Mildly prominent interstitial markings probably secondary to fibrosis. No focal consolidation. Thank you for allowing us to participate in the care of your patient. Dictated and Authenticated by: Dolores Proctor MD. 10/25/2017 4:37 AM Eastern Time ([place] & [place]) Progress Note: Labs ordered and reviewed. Patient is medically cleared for transfer. Medical Decision Making Medical Decision Making: Patient was seen in crisis and will be transferred to [facility] for geriatric psych admission. Patient is awaiting acceptance and transfer. Disposition - Disposition Disposition: Trans to Other Acute Care Hosp Disposition Time: 07:00 Condition: STABLE Forms: [facility] (I[place]ic) - POA Present On Arrival: None - Clinical Impression Clinical Impression: Behavior disorder, Agitation - Scribe Statement The provider has reviewed the documentation as recorded by the Scribe (Kadie Delacruz) Provider Attestation: All medical record entries made by the Scribe were at my direction and personally dictated by me. I have reviewed the chart and agree that the record accurately reflects my personal performance of the history, physical exam, medical decision making, and the department course for this patient. I have also personally directed, reviewed, and agree with the discharge instructions and disposition. Physician Patient Turnover Patient Signed Over To: Vick Ruiz Handoff Comments: awaiting disposition for transfer to Geriatric psych. Unit of [facility], Hosp.
[2017-10-24 21:25] LABS: BASO % 0.2 % (0.0-2.0); EOS # 0.2 K/uL (0.0-0.7); EOS % 3.8 % (0.0-4.0); HEMOGLOBIN 11.5 g/dL (11.0-16.0); LYMPH # 1.3 K/uL (1.0-4.3); LYMPH % 22.7 % (20.0-40.0); MEAN CELL VOLUME 90.6 fL (81.0-99.0); MEAN CORPUSCULAR HEMOGLOBIN 29.8 pg (27.0-31.0); MEAN CORPUSCULAR HGB CONC 32.9 g/dL (33.0-37.0); MONO # 0.6 K/uL (0.0-0.8); MONO % 11.1 % (0.0-10.0); NEUT # 3.4 K/uL (1.8-7.0); NEUT % 62.2 % (50.0-75.0); NRBC % 0.1 % (0.0-2.0); RBC 3.85 Mil/uL (3.80-5.20); WHITE BLOOD COUNT 5.5 K/uL (4.8-10.8)
[2017-10-24 21:58] LABS: ALB/GLOB RATIO 1.3 (1.0-2.1); ALBUMIN 3.8 g/dL (3.5-5.0); ALT/SGPT 20 U/L (9-52); AST/SGOT 47 U/L (14-36); BLOOD UREA NITROGEN 22 mg/dL (7-17); GFR AFRICAN-AMERICAN > 60; GFR NON-AFRICAN AMERICAN > 60
[2017-10-25 02:43] LABS: SQUAMOUS EPITHIAL < 1 /hpf (0-5); URINE BACTERIA FEW (<OCC); URINE BILIRUBIN NEGATIVE (NEGATIVE); URINE BLOOD NEGATIVE (NEGATIVE); URINE CLARITY Hazy (Clear); URINE COLOR Yellow (YELLOW); URINE GLUCOSE (UA) NORMAL (Normal); URINE LEUKOCYTE ESTERASE TRACE Leu/uL (Negative); URINE PROTEIN NEGATIVE (NEGATIVE); URINE UROBILINOGEN NORMAL mg/dL (0.2-1.0)
[2017-10-25 03:25] LABS: BARBITURATES, UR NEGATIVE (NEGATIVE); BENZODIAZEPINES, UR NEGATIVE (NEGATIVE); OPIATES, UR NEGATIVE (NEGATIVE); PHENCYCLIDINE, UR NEGATIVE (NEGATIVE)
--- NOTE | 2017-10-25 04:38 | RAD ---
EXAM: XR Chest, 1 View CLINICAL HISTORY: 77 years old, female; Signs and symptoms; Other: Psych; Additional info: For transfer TECHNIQUE: Frontal view of the chest 1:13 AM 10/25/2017. COMPARISON: No relevant prior studies available. FINDINGS: Lungs: Mildly prominent interstitial markings probably secondary to fibrosis. No focal consolidation. Pleural space: Unremarkable. No pneumothorax. Heart: Unremarkable. No cardiomegaly. Mediastinum: Unremarkable. Upper abdomen: The right hemidiaphragm is mildly elevated. IMPRESSION: Mildly prominent interstitial markings probably secondary to fibrosis. No focal consolidation.
[2017-10-25 13:14] VITALS: RESP 18; O2SAT 100
[2017-10-25] MEDS ORDERED: DiphenhydrAMINE 50 mg/ml Inj IM PRN (14:16)
[2017-10-25 18:34] VITALS: PULSE 82; TEMP 98.2
[2017-10-25 19:36] VITALS: BP 148/76
--- NOTE | 2017-10-27 12:22 | CARD ---
APPROVED REPORT EKG Measurement Heart [id number] 124P [id number] <Conclusion> Normal sinus rhythm Left axis deviation Low voltage QRS Cannot rule out Anterior infarct, age undetermined Abnormal ECG
== END 2017-10-25 19:30 | disposition short-term general hospital (02) ==
LOC: C.ER 20:14
DX: F91.9 Conduct disorder, unspecified (principal); R45.1 Restlessness and agitation; Z85.3 Personal history of malignant neoplasm of breast
CPT/HCPCS: 71045; 80053; 81001; 85025; 93005; 96372; 99285; G0480; J1630; J2060